=== PATIENT | female | born 1985 | race Caucasian/White ===

== ENCOUNTER → 2018-04-26 08:45 | Outpatient (CLI) | payer BC, SELFPAY ==
--- NOTE | 2018-04-26 09:11 | MRI_ITS ---
STUDY: MRI LUMBAR SPINE WITHOUT CONTRAST REASON FOR EXAM: Female, 33 years old. Back pain radiating to left hip TECHNIQUE: Standardized fat and water weighted pulse sequences were obtained in the sagittal and axial planes. COMPARISON: None FINDINGS: T12-L1: Normal endplates. Normal disc height, hydration and morphology. Normal bilateral facet joints. Normal central canal and bilateral lateral recesses. Normal bilateral intervertebral neural foramina. Normal lumbar lordosis. There is no substantial scoliosis. Normal conus medullaris that terminates at T12-L1 L1-2: Normal endplates. Normal disc height, hydration and morphology. Normal bilateral facet joints. Normal central canal and bilateral lateral recesses. Normal bilateral intervertebral neural foramina. L2-3: Normal endplates. Normal disc height, hydration and morphology. Normal bilateral facet joints. Normal central canal and bilateral lateral recesses. Normal bilateral intervertebral neural foramina. L3-4: Normal endplates. Normal disc height, hydration and morphology. Normal bilateral facet joints. Normal central canal and bilateral lateral recesses. Normal bilateral intervertebral neural foramina. L4-5: Normal endplates. Normal disc height, hydration and minimal annular bulge. Mild facet arthropathy.. Normal central canal and bilateral lateral recesses. Mild bilateral neural foraminal encroachment. L5-S1: Normal endplates. Normal disc height, hydration and minor annular bulge with small broad-based central disc protrusion.. Normal bilateral facet joints. Normal central canal and bilateral lateral recesses. Normal bilateral intervertebral neural foramina. Normal visualized sacral ala. Normal visualized paraspinous soft tissue structures. MRI/Spine Lumbar (Routine) IMPRESSION: Minimal annular bulge at L4-5 and facet arthropathy creating mild bilateral neural foraminal encroachment Minor annular bulge L5-S1 with small broad-based central disc protrusion but no significant spinal stenosis Electronically Signed: Trace Booker MD at 21:20 EDT , Service support ,
== END ==
PROVIDERS: Family Provider Student in an Organized Health Care Education/Training Program; PCP Student in an Organized Health Care Education/Training Program
DX: M54.16 Radiculopathy, lumbar region (principal)
CPT/HCPCS: 72148

== ENCOUNTER → 2018-06-04 07:51 | Outpatient (CLI) | payer BC, SELFPAY ==
--- NOTE | 2018-06-04 07:55 | NM_ITS ---
CLINICAL: 33-year-old female with reported history of low back discomfort. WHOLE BODY 99m Tc MDP RADIONUCLIDE BONE SCINTIGRAPHY COMPARISON: MRI of the lumbar spine report 04/26/2018 FINDINGS: Following the intravenous administration of 26.2 mCi of 99m Tc MDP, whole body bone images reveal: 1. Increased radiopharmaceutical concentration appears defined in the bilateral sacroiliac joints, patellofemoral and medial tibial compartments of the bilateral knees, dorsal medial compartments of the right-left ankles, the inferior anterior acetabulum of the right hip, acromioclavicular compartments of both shoulders. 2. The remaining skeletal structures are scintigraphically unremarkable with normal-appearing renal images and urinary bladder activity identified. NM/Bone Scan Whole Body IMPRESSION: 1. The increase in radiopharmaceutical concentration identified in the right-left sacroiliac joints, knee and ankle articulations bilaterally, the right hip and bilateral shoulders may represent early onset degenerative arthritis or potentially synovial inflammation. 2. No other definitive scintigraphic abnormalities are defined. There is no typical evidence of trauma-fracture on the current examination. Electronically Signed: Fracisco Horton DO at 23:42 EST Tel , Service support ,
--- OUTSIDE RECORDS SUMMARY | 2018-07-21 02:41 | XMS RPT_ITS ---
:1985 Author Organization [facility] Care Team Providers Name Role Phone SUZAN JACKSON MD Admitting Unavailable SUZAN JACKSON MD Attending Unavailable SUZAN JAKCSON MD Primary Care Unavailable ALONA FORD Consulting Unavailable PROVIDER, UNKNOWN Consulting Unavailable PROVIDER, UNKNOWN Consulting Unavailable PROVIDER, UNKNOWN Consulting Unavailable EVAN GE Admitting Unavailable EVAN GE Attending Unavailable EVAN GE Primary Care Unavailable EVAN GE Consulting Unavailable PROVIDER, UNKNOWN Consulting Unavailable PROVIDER, UNKNOWN Consulting Unavailable Julius Womack Attending Unavailable Julius Womack Referring Unavailable Suzan Jackson Primary Care Unavailable ELMER GE Attending Unavailable ELMER GE Referring Unavailable Suzan Jackson Primary Care Unavailable PROBLEMS PROBLEMS DATE TYPE CONDITION / CODE ATTENDING STATUS SOURCE 06/06/2018 Admitting Other intervertebral EVAN GE Active [facility] Diagnosis disc displacement, [facility] M5126(ICD-10) Repository 06/06/2018 Principle Other intervertebral GE, SCOT D Active [place] Diagnosis disc displacement, [facility] M5126(ICD-10) Repository 04/30/2018 Unknown M54.16 - Julius Womack Active Malcolm Radiculopathy, [facility] lumbar region [facility] Hospital M54.16(ICD-10) Repository 09/25/2017 Principle Morbid (severe) RDOO, Active [facility] Swartz Diagnosis obesity due to SUZAN GLOVER [facility] E6601(ICD-10) Repository PROCEDURES PROCEDURES No Procedure Records FoundRESULTS RESULTS CBC Collected: 06/06/2018 Status: F Source: [facility] SWARTZ 12:00 PM [facility] REPOSITORY TYPE CODE TESTS RESULT OUT OF RANGE REFERENCE UNITS LAB CBC(LOINC) CBC Result Comment: CBC-COMPLETE BLOOD COUNT LAB WBC(LOINC) 4.5 - 10.8 x 10EE3/UL WBC 9.5 LAB RBC(LOINC) 4.10 - x 10EE6/UL 5.30 RBC 4.77 LAB HEMOGLOBIN(LOINC 12.0 - g/dl ) 16.0 HEMOGLOBIN 13.9 LAB HEMATOCRIT(LOINC 34.0 - % ) 46.0 HEMATOCRIT 41.2 LAB MCV(LOINC) 80 - 99 fl MCV 87 LAB MCH(LOINC) 27 - 33 pg MCH 29 LAB MCHC(LOINC) 32 - 36 X10 3 MCHC 34 LAB RDW/CV(LOINC) 12.0 - % 15.6 RDW/CV 13.8 LAB PLATELET(LOINC) 150 - 450 x10EE3/UL PLATELET 265 LAB MPV(LOINC) 6.6 - 10.5 fl MPV High 11.9 Result Comment: AUTOMATED DIFFERENTIAL LAB NEUT %(LOINC) 46.0 - 76.0 % NEUT % 67.9 LAB LYMPH %(LOINC) 20.0 - 45.0 % LYMPH % 27.4 LAB MONOS %(LOINC) 0.0 - 10.0 % MONOS % 3.5 LAB EO %(LOINC) 0.0 - 7.0 % EO % 0.6 LAB BASO %(LOINC) 0.0 - 2.0 % BASO % 0.6 LAB Lymph #(LOINC) 0.80 - 2.80 x10EE3/U L Lymph # 2.60 LAB Neut #(LOINC) 1.50 - 7.10 x10EE3/U L Neut # 6.40 LAB Glascock #(LOINC) 0.20 - 1.00 x10EE3/U L Glascock # 0.30 LAB EO #(LOINC) 0.00 - 0.50 x10EE3/U L EO # 0.10 LAB Baso #(LOINC) 0.00 - 0.10 x10EE3/U L Baso # 0.10 LAB MANUAL DIFF(LOINC) MANUAL DIFF N/A LAB MORPHOLOGY(LOINC ) MORPHOLOGY N/A Result Comment: {CD] Performed By: #### [id number] #### [address] [address] SEDRATE Collected: 06/06/2018 Status: F [facility] REPOSITORY TYPE CODE TESTS RESULT OUT OF REFERENCE UNITS RANGE LAB SEDRATE(RADHA 0 - 30 mm/hr NC) High SEDRATE 32 Performed By: #### [id number] #### [address] [address] VITAMIN D, 25 Collected: 06/06/2018 Status: F Source: [facility] [place] [facility] 12:00 [facility] REPOSITORY TYPE CODE TESTS RESULT OUT OF RANGE REFERENCE UNITS LAB VitD(LOINC) 30.00 - 100 ng/mL Low VitD 26.21 Result Comment: 25-OHD3 indicates both endogenous production and supplementation. 25-OHD2 is an indicator of exogenous sources, such as diet or supplementation. Therapy is based on measurement of Total 25-OHD, with levels <20 ng/mL indicative of Vitamin D deficiency, while levels between 20 ng/mL and 30 ng/mL suggest insufficiency. Optimal levels are >=30ng/mL. Vitamin D, 25-OH D3 Not Established Vitamin D, 25-OH D2 Not Established Performed By: #### [id number] #### [address] [address] HIGH SENSITIVITY CRP Collected: 06/06/2018 Status: F Source: QUINTON SWARTZ [CCL] 12:00 [facility] REPOSITORY TYPE CODE TESTS RESULT OUT OF REFERENCE UNITS RANGE LAB HIGH SENSITIVITY CRP [CCL](LOINC) HIGH SENSITIVITY CRP [CCL] Result Comment: _HIGH SENSITIVITY CRP [CCL]_ HIGH SENSITIVITY CRP [CCL] Reported: 06/08/2018 08:03 Status=F TEST RESULT FLAG RANGE UNITS UltraSens C-ReacProt 13.7 H <3.1 mg/L 06/08/18.0806.rfl.COMPLETE.ATLR (NOTE) hsCRP < 1.0 mg/L, relative risk is low hsCRP 1.0-3.0 mg/L, relative risk is average hsCRP > 3.0 mg/L, relative risk is high Reference: Chyna TA, Pavel GA, James RW, et al. Markers of Inflammation and Cardiovascular Disease. Application to Clinical and Public Health Practice. A Statement for Healthcare Professionals From the Centers for Disease Control and Prevention and the [employer]. Circulation 2003;107:499-511. [facility] [address] [place] [address] Cata Schafer M.D. [id number] Performed By: #### [id number] #### [facility],[address] [facility] [address] ULTRA-SENSITIVE CRP Collected: 06/06/2018 Status: F Source: [facility] 12:00 PM CLINIC REFERENCE REPOSITORY TYPE CODE TESTS RESULT OUT OF REFERENCE UNITS RANGE LAB CRPUS(LOIN <3.1 mg/L C) High UltraSens 13.7 C-ReacProt Performed By: #### HSCRP #### [facility] [employer] Routine Lab [address] [place], [place] [id number] BONE SCAN WHOLE Observed: 06/04/2018 Status: F Source: [place] BODY 7:55 AM [facility] REPOSITORY [facility] Imaging Services [address] [place] [address] Bone Scan Whole Body MR#: [id number] Acct: [id number] Name: JULISSA GE Mario Rep #: [id number] : 1985 F 33 From: Fracisco Horton DO PCP: Suzan Jackson MD Status: REG CLI Study: Bone Scan Whole Body Date of Exam: 06/04/18 Exam# [id number] Ordering Dr: Evan Ge DO CLINICAL: 33-year-old female with reported history of low back discomfort. WHOLE BODY 99m Tc MDP RADIONUCLIDE BONE SCINTIGRAPHY COMPARISON: MRI of the lumbar spine report 04/26/2018 FINDINGS: Following the intravenous administration of 26.2 mCi of 99m Tc MDP, whole body bone images reveal: 1. Increased radiopharmaceutical concentration appears defined in the bilateral sacroiliac joints, patellofemoral and medial tibial compartments of the bilateral knees, dorsal medial compartments of the right-left ankles, the inferior anterior acetabulum of the right hip, acromioclavicular compartments of both shoulders. 2. The remaining skeletal structures are scintigraphically unremarkable with normal-appearing renal images and urinary bladder activity identified. NM/Bone Scan Whole Body IMPRESSION: 1. The increase in radiopharmaceutical concentration identified in the right-left sacroiliac joints, knee and ankle articulations bilaterally, the right hip and bilateral shoulders may represent early onset degenerative arthritis or potentially synovial inflammation. 2. No other definitive scintigraphic abnormalities are defined. There is no typical evidence of trauma-fracture on the current examination. Electronically Signed: Fracisco Horton DO at 23:42 EST Tel , Service support , CC: Suzan Jackson MD; ELMER GE Remotely Piloted Vehicle Controller: Signed SPINE LUMBAR Observed: 04/26/2018 Status: F Source: [place] (ROUTINE) 9:11 AM [facility] REPOSITORY [facility] Imaging Services [address] [place] [address] Spine Lumbar (Routine) MR#: [id number] Acct: [id number] Name: JULISSA GE Mario Rep #: [id number] : 1985 F 33 From: Trace Booker MD PCP: Suzan Jackson MD Status: [facility] CLI Study: Spine Lumbar (Routine) Date of Exam: 04/26/18 Exam# [id number] Ordering Dr: Julius Womack STUDY: MRI LUMBAR SPINE WITHOUT CONTRAST REASON FOR EXAM: Female, 33 years old. Back pain radiating to left hip TECHNIQUE: Standardized fat and water weighted pulse sequences were obtained in the sagittal and axial planes. COMPARISON: None FINDINGS: T12-L1: Normal endplates. Normal disc height, hydration and morphology. Normal bilateral facet joints. Normal central canal and bilateral lateral recesses. Normal bilateral intervertebral neural foramina. Normal lumbar lordosis. There is no substantial scoliosis. Normal conus medullaris that terminates at T12-L1 L1-2: Normal endplates. Normal disc height, hydration and morphology. Normal bilateral facet joints. Normal central canal and bilateral lateral recesses. Normal bilateral intervertebral neural foramina. L2-3: Normal endplates. Normal disc height, hydration and morphology. Normal bilateral facet joints. Normal central canal and bilateral lateral recesses. Normal bilateral intervertebral neural foramina. L3-4: Normal endplates. Normal disc height, hydration and morphology. Normal bilateral facet joints. Normal central canal and bilateral lateral recesses. Normal bilateral intervertebral neural foramina. L4-5: Normal endplates. Normal disc height, hydration and minimal annular bulge. Mild facet arthropathy.. Normal central canal and bilateral lateral recesses. Mild bilateral neural foraminal encroachment. L5-S1: Normal endplates. Normal disc height, hydration and minor annular bulge with small broad-based central disc protrusion.. Normal bilateral facet joints. Normal central canal and bilateral lateral recesses. Normal bilateral intervertebral neural foramina. Normal visualized sacral ala. Normal visualized paraspinous soft tissue structures. MRI/Spine Lumbar (Routine) IMPRESSION: Minimal annular bulge at L4-5 and facet arthropathy creating mild bilateral neural foraminal encroachment Minor annular bulge L5-S1 with small broad-based central disc protrusion but no significant spinal stenosis Electronically Signed: Trace Booker MD at 21:20 EDT , Service support , CC: Julius Womack; Suzan Jackson MD Remotely Piloted Vehicle Controller: Signed CBC Collected: 09/25/2017 Status: F Source: [place] SWARTZ 10:30 AM [facility] REPOSITORY TYPE CODE TESTS RESULT OUT OF RANGE REFERENCE UNITS LAB CBC(LOINC) CBC Result Comment: CBC-COMPLETE BLOOD COUNT LAB WBC(LOINC) 4.5 - 10.8 x 10EE3/UL WBC 5.7 LAB RBC(LOINC) 4.10 - x 10EE6/UL 5.30 RBC 5.01 LAB HEMOGLOBIN(LOINC) 12.0 - g/dl 16.0 HEMOGLOBIN 14.9 LAB HEMATOCRIT(LOINC) 34.0 - % 46.0 HEMATOCRIT 42.8 LAB MCV(LOINC) 80 - 99 fl MCV 86 LAB MCH(LOINC) 27 - 33 pg MCH 30 LAB MCHC(LOINC) 32 - 36 X10 3 MCHC 35 LAB RDW/CV(LOINC) 12.0 - % 15.6 RDW/CV 13.7 LAB PLATELET(LOINC) 150 - 450 x10EE3/UL PLATELET 204 Result Comment: Large platelets noted on slide review. LAB MPV(LOINC) 6.6 - 10.5 fl High MPV 11.7 Result Comment: AUTOMATED DIFFERENTIAL LAB NEUT %(LOINC) 46.0 - 76.0 % NEUT % 57.9 LAB LYMPH %(LOINC) 20.0 - 45.0 % LYMPH % 33.8 LAB MONOS %(LOINC) 0.0 - 10.0 % MONOS % 6.9 LAB EO %(LOINC) 0.0 - 7.0 % EO % 0.9 LAB BASO %(LOINC) 0.0 - 2.0 % BASO % 0.5 LAB Lymph #(LOINC) 0.80 - 2.80 x10EE3/U L Lymph # 1.90 LAB Neut #(LOINC) 1.50 - 7.10 x10EE3/U L Neut # 3.30 LAB Glascock #(LOINC) 0.20 - 1.00 x10EE3/U L Glascock # 0.40 LAB EO #(LOINC) 0.00 - 0.50 x10EE3/U L EO # 0.10 LAB Baso #(LOINC) 0.00 - 0.10 x10EE3/U L Baso # 0.00 LAB MANUAL DIFF(LOINC) MANUAL DIFF N/A LAB MORPHOLOGY(LOINC ) MORPHOLOGY N/A Result Comment: {CD] Performed By: #### [id number] #### [place] [address] LIPID PROFILE Collected: 09/25/2017 Status: F Source: [facility] 10:30 AM [facility] REPOSITORY TYPE CODE TESTS RESULT OUT OF REFERENCE UNITS RANGE LAB LIPID PROFILE(LOIN C) LIPID PROFILE Result Comment: LIPID PROFILE LAB TRIGLYCERIDE(LOINC) 0 - 150 mg/dl TRIGLYCERIDE 137 LAB CHOLESTEROL(LOINC) 0 - 200 mg/dl CHOLESTEROL 162 LAB HDL(LOINC) 40 - 60 mg/dl HDL High 62 LAB CHOL/HDL(LOINC) 0.0 - 5.0 CHOL/HDL 2.6 LAB LDL(LOINC) 0 - 129 mg/dl LDL 73 Performed By: #### [id number] #### [place] [address] CMP WITH EGFR Collected: 09/25/2017 Status: F Source: [facility] 10:30 [facility] REPOSITORY TYPE CODE TESTS RESULT OUT OF RANGE REFERENCE UNITS LAB CMP with eGFR(LOINC) CMP with eGFR Result Comment: COMPREHENSIVE METABOLIC PANEL LAB SODIUM(LOINC) 136 - 145 mmol/l SODIUM 137 LAB POTASSIUM(LOINC) 3.5 - 5.1 mmol/L POTASSIUM 4.2 LAB CHLORIDE(LOINC) 98 - 107 mmol/L CHLORIDE 106 LAB CO2(LOINC) 21.0 - mmol/L 31.0 CO2 23.2 LAB GLUCOSE(LOINC) 74 - 106 mg/dl GLUCOSE 89 LAB BUN(LOINC) 6 - 20 mg/dl BUN 11 LAB CREATININE(LOINC) 0.6 - 1.2 mg/dl CREATININE 0.8 LAB AST/SGOT(LOINC) 13 - 39 U/L AST/SGOT 16 LAB ALK PHOS(LOINC) 38 - 126 U/L ALK PHOS 91 LAB CALCIUM(LOINC) 8.6 - mg/dl 10.2 CALCIUM 9.0 LAB TOTAL PROTEIN(LOINC) 6.4 - 8.3 g/dl TOTAL PROTEIN 7.0 LAB ALBUMIN(LOINC) 3.4 - 4.8 g/dL ALBUMIN 3.9 LAB GLOBULIN(LOINC) 1.5 - 3.8 G/DL GLOBULIN 3.1 LAB A/G RATIO(LOINC) 0.9 - 1.6 A/G RATIO 1.3 LAB TOTAL BILI(LOINC) 0.0 - 1.5 mg/dl TOTAL BILI 0.4 LAB B/C RATIO(LOINC) 0 - 30 ratio B/C RATIO 14 LAB ALT/SGPT(LOINC) 8 - 35 U/L ALT/SGPT 15 LAB ANION GAP(LOINC) 10 - 20 mmol/L ANION GAP 12 LAB AGE(LOINC) years AGE 32 LAB eGFR(LOINC) 60 - 999 ML/MINUTE eGFR >60 LAB eGFR(AA)(LOINC) 60 - 999 ML/MINUTE eGFR(AA) >60 Result Comment: ACCORDING TO THE NATIONAL KIDNEY DISEASE EDUCATION PROGRAM(NKDE), A NORMAL eGFR IS A VALUE GREATER THAN OR EQUAL TO 60 ML/MIN/1.73 SQ METERS. CHRONIC KIDNEY DISEASE: <60mL/MIN/1.73 SQ METERS KIDNEY FAILURE: <15mL/MIN/1.73 SQ METERS THIS TEST SHOULD ONLY BE USED FOR PATIENTS 18 YEARS OF AGE AND OLDER. Performed By: #### [id number] #### [facility],[address] [place] [address] ALLERGIES ALLERGIES DATE TYPE / CODE NAME / CODE REACTION SEVERITY SOURCE 07/23/2014 Drug No Known Unknown [place] Allergy/[id number](S Allergies/F0019 [facility] NOMED CT) 8[address](RXNORM) Hospital Repository Miscellaneous No Known Drug Moderate [facility] Allergy/[id number](S Allergies (Severity [facility] NOMED CT) Modifier) Hospital (Qualifier Repository Value) ENCOUNTERS ENCOUNTERS ADMIT/DISCHARGE ACCOUNT ADMITTING ENCOUNTER LOCATION SOURCE NUMBER CLASS 06/06/2018/ [id number] EVAN GE Ambulatory [facility] 8 D [facility] Repository 06/04/2018 [id number] Ambulatory [facility] 6 [facility] ing:[place] Repository 04/26/2018 [id number] Ambulatory [facility] [place] 3 [facility] ing:[place] Repository 09/25/2017/ [id number] [place]OD[place], Ambulatory Quinton Swartz 8 SUZAN GLOVER [facility] [place] [facility] Repository PAYERS PAYERS ENCOUNTER GUARANTOR PAYER SUBSCRIBER SOURCE 06/06/2018 JULISSA Martin Primary JULISSA Swartz MILLERDOB: Insurance:[employer]HEM BLUE MILLERDOB: [facility] [id number] CROSS COMMERCIAL [id number] Hospital [address] [address] [facility] BOX Repository [facility] Number: [place] [id number] [place] [address] [phone]: Date:Plan Name: () 06/04/2018 JULISSA Martin Primary JULISSA Fowler [address] Insurance:ANTHEMPolicy MILLERDOB: [facility] Number: [id number] [id number] Repository [place], [place] [address]Yoy: Date:4167-30-62TS [address], [place] () [address]EU: 06/04/2018 Secondary NOT GIVENUNK [place] Insurance:SELF PAY [facility] Number: Effective Repository Date:2018-05-22 04/26/2018 JULISSA Martin Primary JULISSA Martin Malcolm [facility] Insurance:ANTHEMPolicy MILLERDOB: [place] [id number] [place] Number: [id number] [id number] Rep[facility] [place], [place] [address]Ouv: Date:3774-01-36HA [id number] [place] [address]) [address]JZ: 04/26/2018 Secondary NOT GIVENUNK [place] Insurance:SELF PAY [facility] Number: Effective Repository Date:2018-04-23 09/25/2017 JULISSA Martin Primary JULISSA Swartz MILLERDOB: Insurance:ANTHEMPolicy MILLERDOB: [facility] [id number] Number: [id number] Hospital [address] [address] [place] [id number] [facility] Repository [facility] Date:Plan Name: [id number] , [place] , [place] [address] [phone]: ()
== END ==
LOC: NM 07:53
PROVIDERS: Family Provider Student in an Organized Health Care Education/Training Program; PCP Student in an Organized Health Care Education/Training Program; Referring Provider Orthopaedic Surgery; Visit Provider Orthopaedic Surgery
DX: M51.26 Other intervertebral disc displacement, lumbar region (principal)
CPT/HCPCS: 78306

== ENCOUNTER 2019-06-04 22:16 | Inpatient (IN) | payer BC, SELFPAY ==
[2019-06-04 22:17] VITALS: BP 167/111; PULSE 84; RESP 15; TEMP 36.7; O2SAT 100; BMI 40.1
--- NOTE | 2019-06-04 22:25 | ED.RN ---
NO OLD EKGS IN MUSE
--- NOTE | 2019-06-04 23:56 | EKG12_ITS ---
Test Reason : CP Blood Pressure : / mmHG Vent. Rate : 067 BPM Atrial Rate : 067 BPM P-R Int : 166 ms QRS Dur : 068 ms QT Int : 364 ms P-R-T Axes : 049 049 060 degrees QTc Int : 384 ms Normal sinus rhythm Normal ECG Confirmed by DIA GLOVER, VANDANA ([id number]), general expeditor JAYASHREE BAPTISTE ([id number]) on 06/08/2019 11:45:20 AM Referred By: LIS Confirmed By:VANDANA ALVARES MD
--- NOTE | 2019-06-04 23:57 | ED.VIS.GEN ---
History of Present Illness Chief Complaint: Chest Pain Narrative: Patient is a 34-year-old female who presents with chest pain. This began 2-1/2 hours prior to my evaluation. This was with light activity while feeding some pets. She describes it as a burning substernal chest pain with radiation towards her shoulders. She also reports a little bit of nausea, shortness of breath, dizziness. No history of prior similar symptoms. She also complains of tingling in both arms. No recent illness. No fevers or cough. No vomiting. She is treated for depression/anxiety. She has not a smoker. She denies history of diabetes, hypertension, hyperlipidemia Past Medical History - Allergies and Home Meds Allergies/Adverse Reactions: Allergies Iodinated Contrast Media [CONTRASTS] Adverse Reaction (Verified 06/05/19 02:11) Itching Primary Care Physician: Thalia Jackson MD [Primary Care Provider] - Past Medical History: - - Depression/anxiety Smoking Status: Never smoker Review of Systems All systems negative except as indicated General: Denies: Fever Eyes: Denies: Visual changes - bilaterally ENT: Denies: Bilateral ear pain Cardiovascular: Reports: Chest pain Respiratory: Reports: Dyspnea Gastrointestinal: Reports: Nausea. Denies: Abdominal pain, Vomiting Skin: Denies: Rash Neurological: Reports: - - Dizziness. Denies: Headache Hematologic: Denies: Easy bruising, Easy bleeding Allergy: Denies: Uticaria Physical Exam Vital Signs/Narrative: Vital Signs Temp Pulse Resp BP Pulse Ox 06/04/19 22:17 98.1 F 84 15 167/111 H 100 Inital Vital Signs reviewed: Yes General: Well nourished, Well developed Head: Normocephalic Eyes: EOMI ENT: Moist mucous membranes Neck: Supple Cardiovascular: Regular rate, Regular rhythm Respiratory: No distress, CTA bilaterally Abdomen: Soft, Nontender Extremities: Nontender, No edema, - - Symmetric palpable radial pulses Skin: Normal color Neurological: Alert Psychological: Normal affect Diagnostic/Tx/Re-eval Impressions Chest X-Ray 06/05/19 00:00 IMPRESSION: Normal. at 0020 Reported and signed by: Julius Bolden MD Electronically Signed: Julius Bolden MD at 0:19 EST Tel , Service support , Chest CTA 06/05/19 00:56 IMPRESSION: No pulmonary embolism, aortic aneurysm, or aortic dissection. Individualized dose optimization techniques were used for this CT. at 0205 Reported and signed by: Julius Bolden MD Electronically Signed: Julius Bolden MD at 2:04 EST Tel , Service support , 06/05/19 00:00 Chest PA and Lateral [RAD] Stat 06/05/19 00:56 CTA Chest W/WO Contrast [CT] Stat Laboratory Results 06/05/19 06/05/19 06/05/19 00:05 00:05 00:05 WBC 11.4 H RBC 5.12 Hgb 15.1 H Hct 45.0 MCV 87.9 MCH 29.5 MCHC 33.6 RDW Std Deviation 41.4 RDW Coeff of Precious 12.8 Plt Count 248 MPV 11.6 Immature Gran % (Auto) 0.400 Neut % (Auto) 75.0 H Lymph % (Auto) 18.1 L Taliaferro % (Auto) 5.5 Eos % (Auto) 0.4 Baso % (Auto) 0.6 Absolute Neuts (auto) 8.5 H Absolute Lymphs (auto) 2.06 Nucleated RBC % 0 APTT 29.2 Sodium 141 Potassium 4.0 Chloride 108 H Carbon Dioxide 26.0 Anion Gap 7 BUN 14 Creatinine 0.90 Estim Creat Clear Calc 66.46 Est GFR (MDRD) Af Amer 92 Est GFR (MDRD) Non-Af 76 BUN/Creatinine Ratio 15.6 Glucose 101 Calcium 9.0 Troponin I 0.390 H - Medical Decision Making EKG shows normal sinus rhythm at a rate of 67 with no acute ischemic changes or dysrhythmia. Laboratory studies returned as above notable for troponin of 0.39. Patient's initial chest pain was rated a 6 out of 10. On reevaluation she rates it as 4 out of 10. Patient was given aspirin. Patient was discussed with Dr. Kowalski. After discussion patient was started on a heparin infusion and I also obtained a CTA of the chest to rule out alternative pathology such as pulmonary embolism. CTA of the chest is normal. Patient was given sublingual nitroglycerin with further minor improvement in pain. Given that she did have some relief with sublingual nitroglycerin but without resolution she was started on a nitroglycerin infusion. Repeat EKG has also been ordered as well as repeat troponin which is pending. Patient was also given morphine and Zofran. Patient will be discussed with the hospitalist and admitted for further work-up and treatment. ED Disposition - Plan for ED Patient: Disposition: [facility] Diagnosis: Chest pain, Elevated troponin Referrals: Thalia Jackson MD [Primary Care Provider] -
[2019-06-05] VITALS (45 sets, daily range): BP systolic 100–154; BP diastolic 52–109; PULSE 52–106; RESP 15–26; TEMP 36.6–36.8; O2SAT 92–99; BMI 40.1; BMI 39.0; BMI 38.9
--- NOTE | 2019-06-05 | RAD_ITS ---
HISTORY: STERNAL CHEST PAIN WITH SOB EXAM: XR Chest 2 Views: COMPARISON: None FINDINGS: # of images incl. paperwork: 3 Lungs are clear. Heart is not enlarged. No acute osseous pathology perceived. Pulmonary vascularity is distinct. No effusions. RAD/Chest PA and Lateral IMPRESSION: Normal. at 0020 Reported and signed by: Julius Bolden MD Electronically Signed: Julius Bolden MD at 0:19 EST Tel , Service support ,
[2019-06-05 00:15] LABS: Absolute Lymphocyte Count 2.06 X10^3/uL (0.83-4.51); Absolute Neutrophil Count 8.5 X10^3/uL (2.0-7.7); Basophil# 0.07 X10^3/uL; Basophil% 0.6 % (0-1); Eosinophil# 0.05 X10^3/uL; Eosinophils% 0.4 % (0-5); Hemoglobin 15.1 g/dL (12.0-15.0); Lymphocyte # 2.06 X10^3/ul (4.0); Lymphocyte % 18.1 % (19-41); Mean Corp Hgb Conc 33.6 g/dL (32-36); Mean Corpuscular Hgb 29.5 pg (27.0-32.0); Mean Corpuscular Volume 87.9 fL (81-99); Mean Platelet Vol. 11.6 fl (6.2-12.0); Monocyte# 0.62 X10^3/uL; Monocyte% 5.5 % (0-10); NRBC Flagged by Analyzer 0 % (0-5); Neutrophil # 8.51 X10^3/uL (2.7-7.7); Platelet Count 248 K/mm3 (150-450); RBC Distribution Width CV 12.8 % (11.6-14.6); RBC Distribution Width SD 41.4 fl (35.1-43.9); Red Blood Count 5.12 M/mm3 (4.2-5.4); White Blood Count 11.4 K/mm3 (4.4-11.0)
[2019-06-05 00:35] LABS: Anion Gap 7 (5-15); BUN 14 mg/dL (7-18); BUN/Creat Ratio 15.6 RATIO (10-20); Chloride 108 mmol/L (98-107); EST Glomerular Filtration Rate 76 mL/min (>60); Est Glom Filt Rate - Afr Amer 92 mL/min (>60); Estimated Creatinine Clearance 66.46 ml/min; Glucose 101 mg/dL (74-106); Sodium Level 141 mmol/L (136-145)
[2019-06-05] MEDS: Aspirin 81 MG TAB.CHEW 324 MG PO (00:56)
--- NOTE | 2019-06-05 00:56 | CT_ITS ---
HISTORY: SOB AND CHEST PAIN SINCE 930 PM LAST NIGHT,ELEVATED BP AND WBC TECHNIQUE: Helically acquired images were obtained of the chest following the intravenous administration of 19 mL of Isovue-370 Iodinated contrast. as per pulmonary angiogram protocol with 2D MIP reconstructions. A radiation dose optimization technique was used for this scan. COMPARISON: Chest x-ray from one hour earlier FINDINGS: # of images incl. paperwork: 1149 Soft tissue in the anterior mediastinum is likely normal residual thymus Lungs are clear but for trace basilar atelectasis. No effusions. Within the thoracic spinebony alignment is normal. Vertebral body height is normal. Facets are well aligned. No rib lesions are perceived. Heart is not enlarged. Thoracic aorta is normal. No aneurysms, stenoses, dissections, nor occlusions. No axillary or mediastinal adenopathy. No pulmonary emboli. Visualized portions of the upper abdomen are without identified acute pathology. CT/CTA Chest W/WO Contrast IMPRESSION: No pulmonary embolism, aortic aneurysm, or aortic dissection. Individualized dose optimization techniques were used for this CT. at 0205 Reported and signed by: Julius Bolden MD Electronically Signed: Julius Bolden MD at 2:04 EST Tel , Service support ,
[2019-06-05 01:07] LABS: Partial Thromboplast Time 29.2 Seconds (24.1-36.2)
[2019-06-05] MEDS: MethylPREDNISolone 125 MG/2 ML Vial IV (01:35)
[2019-06-05] MEDS: DiphenhydrAMINE 50 MG/ML Syringe 25 MG IV (01:36)
[2019-06-05] MEDS: Nitroglycerin SL (ED/IMG/CATH) 0.4 MG TABLET SUBLINGUAL ×2 (01:39→01:53)
[2019-06-05] MEDS: Heparin Injection (Vial) 5,000 UNIT/ML VIAL 7500 UNIT IV (01:40)
[2019-06-05] MEDS: HEPARIN/D5w 25,000 UNITS 25,000 UNITS/250 ML IV.SOLN. 14 UNITS IV (01:52)
--- NOTE | 2019-06-05 02:26 | EKG12_ITS ---
Test Reason : REPEAT Blood Pressure : / mmHG Vent. Rate : 063 BPM Atrial Rate : 063 BPM P-R Int : 162 ms QRS Dur : 076 ms QT Int : 370 ms P-R-T Axes : 042 036 035 degrees QTc Int : 378 ms Normal sinus rhythm Normal ECG Confirmed by DIA GLOVER, VANDANA ([id number]), video news editor JAYASHREE BAPTISTE ([id number]) on 06/08/2019 11:45:33 AM Referred By: LIS Confirmed By:VANDANA ALVARES MD
--- NOTE | 2019-06-05 02:42 | PCM.HP.STD ---
Problem List (1) NSTEMI (non-ST elevated myocardial infarction) Status: Acute History of Present Illness Date of Admission: 06/05/19 Chief Complaint: CHEST PAIN The patient is a 34 year old F with a significant history of morbid obesity; arthritis; and anxiety disorder who presented to emergency department with a progressive worsening substernal chest pain that radiated to her bilateral arms. 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 Then she developed mild substernal chest pain. She then carried a bag of dog food after which her pain moved from the center of her chest to across her entire chest and radiated to her bilateral arms. She had a tingling sensation in her bilateral arms. Associated with symptoms is nausea and diaphoresis. Also when she stood up she felt short of breath and had lightheadedness. She denied any ameliorating or aggravating factors to her pain. At the emergency department patient her troponin was elevated. The case was discussed with cardiology and patient was started on heparin drip and nitroglycerin drip. Past Medical History Medical History: Medical History (Last Updated 06/05/19 @ 03:33 by Valentin Pradhan MD) Arthritis M19.90 Allergies Iodinated Contrast Media [CONTRASTS] Adverse Reaction (Verified 06/05/19 02:11) Itching Home Medications: Ambulatory Orders Medication Instructions Recorded Citalopram [Celexa] 10 mg PO DAILY 07/23/14 Norgestimate-Ethinyl Estradiol 1 each PO DAILY 07/23/14 [Tri-Sprintec Tablet] Oxycodone HCl/Acetaminophen 1 - 2 tablet PO Q4H PRN PRN #12 07/23/14 [Percocet 5/325] tablet Escitalopram Oxalate [Lexapro] DAILY 06/05/19 Surgical History: no surgical history Lives: Alone Smoking Status: Current every day smoker Tobacco Use: Chew - *Family History Maternal History Items: Diabetes, Heart Disease - Her maternal grandfather in his 60s had dysrhythmia for which pacemaker was considered. However he did before the pacemaker was inserted. Paternal History Items: Diabetes Review of Systems Constitutional: Denies: Chills, Fever, Weight Change HEENT: Denies: Head Aches, Sinus Congestion, Sinus Drainage Cardiovascular: Reports: Chest Pain, Light Headedness. Denies: Palpitations Respiratory: Reports: Shortness of Breath. Denies: Cough, Shortness of breath at rest, Sputum production Gastrointestinal: Reports: Nausea. Denies: Abdominal Pain, Vomiting Genitourinary: Denies: Dysuria Musculoskeletal: Reports: Arm Pain. Denies: Joint Pain, Joint Tenderness Skin: Denies: Rash, Wounds Neurological: Reports: Tingling - Bilateral arms. Denies: Focal weakness, Numbness Psychiatric: Reports: Anxiety. Denies: Depression, Homicidal Ideations, Suicidal Ideations Hematologic/ Lymphatic: Denies: Easy Bruising, Easy Bleeding VTE Information - Inpt Only VTE Present on Admission: No VTE Mechan Device Prophylaxis: None VTE Pharm Prophylaxis ordered?: No Reason prophylaxis not ordered:: Treatment Not Indicated - Started on heparin drip for non-ST elevation IL. Patient Problems: Active and Suspected Problems (Last Updated 06/05/19 @ 03:33 by Valentin Pradhan MD) Chest pain (Acute) Elevated troponin (Acute) NSTEMI (non-ST elevated myocardial infarction) (Acute) - Physical Exam Vitals/I&O's: Vital Signs Temp Pulse Resp BP Pulse Ox 98.1 F 69 24 H 117/72 99 06/04/19 22:17 06/05/19 02:16 06/05/19 02:16 06/05/19 02:16 06/05/19 02:16 Oxygen Delivery Method Room Air Weight: 96.3 kg Body Mass Index (BMI) 40.1 Intake and Output for Last 24 Hours 06/03/19 06/04/19 06/05/19 23:59 23:59 23:59 Intake Total 7.47 / 7.47 Balance 7.47 / 7.47 General: Alert, Oriented x3, Cooperative HEENT: Atraumatic, PERRLA, EOMI, Normocephalic Neck: Supple, No JVD, Negative Carotid Bruits Lungs: Clear to auscultation, Normal air movement, No rhonchi, No wheeze, No rales Cardiovascular: Regular rate, No murmurs Abdomen: Bowel Sounds Present, Soft, Non Tender Extremities: No edema, Capillary Refill Less than 3 Seconds Skin: No rashes, No breakdown Musculoskeletal: No Tenderness to Palpation of Joints or Extremities Neurological: Cranial nerves II-XII grossly intact Psych/Mental Status: Normal Affect, Appropriate Laboratory Results 06/05/19 00:05: WBC 11.4 H, RBC 5.12, Hgb 15.1 H, Hct 45.0, MCV 87.9, MCH 29.5, MCHC 33.6, RDW Std Deviation 41.4, RDW Coeff of Precious 12.8, Plt Count 248, MPV 11.6, Immature Gran % (Auto) 0.400, Neut % (Auto) 75.0 H, Lymph % (Auto) 18.1 L, [place] % (Auto) 5.5, Eos % (Auto) 0.4, Baso % (Auto) 0.6, Absolute Neuts (auto) 8.5 H, Absolute Lymphs (auto) 2.06, Nucleated RBC % 0 06/05/19 00:05: Sodium 141, Potassium 4.0, Chloride 108 H, Carbon Dioxide 26.0, Anion Gap 7, BUN 14, Creatinine 0.90, Estim Creat Clear Calc 66.46, Est GFR (MDRD) Af Amer 92, Est GFR (MDRD) Non-Af 76, BUN/Creatinine Ratio 15.6, Glucose 101, Calcium 9.0, Troponin I 0.390 H 06/05/19 00:05: APTT 29.2 Current Medications Heparin Sodium (Porcine) (Heparin Na) 0 unit IV UD PRN; Protocol Heparin Sodium/Dextrose () 25,000 units in 250 mls @ 14 mls/hr IV .[id number] [facility]; Protocol Last Titration: 06/05/19 02:24 Dose: 1,400 units/hr, 14 mls/hr Documented by: Nitroglycerin/Dextrose () 250 mls @ 3 mls/hr CONT INF .[id number] [facility]; Protocol Nitroglycerin (Nitrostat) 0.4 mg SUBLINGUAL Q5M PRN PRN Reason: Chest pain Last Admin: 06/05/19 01:53 Dose: 0.4 mg Documented by: Assessment/Plan All Active Problems (Last Updated 06/05/19 @ 03:33 by Valentin Pradhan MD) Chest pain (Acute) Elevated troponin (Acute) NSTEMI (non-ST elevated myocardial infarction) (Acute) The patient is a 34 year old F with a significant history of morbid obesity; arthritis; tobacco abuse; and anxiety disorder who presented to emergency department with typical chest pain and elevated troponin consistent with non-ST elevation IL. Non-ST elevation IL Place on a monitored bed at PCU CXR independently reviewed confirms no acute cardiopulmonary process. EKG independently reviewed confirms sinus rhythm. Patient was pretreated and had a chest CTA with contrast which was unremarkable. Received aspirin 324 mg in emergency department ASA 81 mg p.o. daily Statin: We will give one-time dose of high intensity statin. Anti-P2Y12 Receptor antibody: Load with Plavix 30 mg; and then Plavix 75 mg daily Anticoagulation: Was started on heparin drip for the emergency department; continued Continue nitroglycerin drip started from the emergency department. We will check lipid panel. Serial cardiac enzymes Stat EKG as needed for chest pain Cardiology consult. Tobacco abuse Patient chews tobacco. Counseled. Anxiety disorder On Lexapro Arthritis Takes Tylenol and ibuprofen as needed Miscellaneous: On home Norgestimate-Ethinyl Estradiol DVT Prophylaxis: Not indicated since patient has been started on heparin drip for her non-ST elevation IL. Code Visit Inpatient E&M: 79286 Init Hosp L3
[2019-06-05] MEDS: Ondansetron 4 MG/2 ML Vial IV (03:09)
[2019-06-05] MEDS: Morphine 4 MG/ML Syringe IV (03:10)
[2019-06-05] MEDS: Nitroglycerin Infusion 250 ML 3 MG CONT INF (03:13)
--- NOTE | 2019-06-05 03:26 | EKG12_ITS ---
Test Reason : AM EKG Blood Pressure : / mmHG Vent. Rate : 064 BPM Atrial Rate : 064 BPM P-R Int : 162 ms QRS Dur : 072 ms QT Int : 402 ms P-R-T Axes : 053 045 066 degrees QTc Int : 414 ms Sinus rhythm with marked sinus arrhythmia Nonspecific T wave abnormality Abnormal ECG When compared with ECG of 05-JUN-2019 13:58, MANUAL COMPARISON REQUIRED, DATA IS UNCONFIRMED Confirmed by MART GLOVER, MYESHA ([id number]), tape editor LENNOX FLAHERTY ([id number]) on 06/10/2019 11:47:03 AM Referred By: DENNIS Confirmed By:MYESHA CEVALLOS MD
[2019-06-05] MEDS: Atorvastatin Calcium 80 MG Tablet PO ×2 (04:25→21:01)
[2019-06-05] MEDS: Clopidogrel Bisulfate 300 MG Tablet PO (04:25)
[2019-06-05] MEDS: Acetaminophen 325 MG Tablet 650 MG PO (06:09)
[2019-06-05 06:54] LABS: Cholesterol 176 mg/dL (200); High Density Lipoprotein 65 mg/dL; Triglycerides 93 mg/dL; Very Low Density Lipoprotein 19 mg/dL (5-40)
--- NOTE | 2019-06-05 08:05 | PN_ITS ---
Progress Note This is a 34 years old female patient presented to the emergency department because of chest pain, found to have elevated troponin consistent with non-ST relation NH. Patient seen and examined this morning. Chest pain improved but still having minimal chest pain. Denies shortness of breath, palpitation, diaphoresis, nausea or vomiting. No family history of premature CAD. On risk factor is chewing tobacco and obesity. No history of diabetes or hypertension. Lipid profile was normal. Her vital signs are stable. She is on aspirin, Pl avix and IV heparin drip. EKG revealed no acute changes. CTA chest showed no PE or dissection, no pneumonia. Cardiology consulted, awaiting recommendations. STROKE Vital Signs/Narrative: Vital Signs Pulse BP Pulse Ox 06/05/19 07:48 95 06/05/19 07:22 72 06/05/19 07:00 134/86 H 06/05/19 06:00 119/72 06/05/19 05:30 129/77 H 06/05/19 05:00 121/75 H 06/05/19 04:45 120/80 06/05/19 04:30 124/73 H 06/05/19 04:15 128/77 H
--- NOTE | 2019-06-05 09:23 | CASEMGMT ---
According to the [place] website, the following are in-network tertiary facilities: [facility], [facility], [facility], [facility], [facility], [facility], [facility], [facility], [facility], and . Jeremi ROBBINS CM
[2019-06-05] MEDS: DiphenhydrAMINE 25 MG Capsule 50 MG PO (09:27)
[2019-06-05] MEDS: predniSONE 20 MG Tablet 60 MG PO (09:28)
[2019-06-05] MEDS: Famotidine 20 MG Tablet PO (09:28)
--- NOTE | 2019-06-05 09:59 | PCM.CONS.C ---
Problem List (1) NSTEMI (non-ST elevated myocardial infarction) Status: Acute (2) Chest pain Status: Acute (3) Tobacco abuse Status: Acute Reason for Consult Date of Consultation: 06/05/19 History of Present Illness: The patient is a 34 year old white female who denies any past cardiovascular history and only admits to a past medical history of anxiety who was referred for evaluation of chest discomfort concerning for angina pectoris and subsequent objective findings concerning for an acute non-ST segment elevation VA. The patient states the best of her knowledge she has been healthy and feeling well until yesterday. She notes yesterday during physical activity she felt a centralized chest burning sensation. Over time she experienced nausea, dyspnea, and bilateral upper extremity paresthesias. She did present to the [facility] emergency department for further evaluation. She was found to have an indeterminate troponin I level and an ECG that demonstrated sinus rhythm with no acute ECG changes. She underwent additional evaluation with a chest CT scan which was reported as negative for great vessel disease or thromboembolic disease. She was treated medically with aspirin and IV nitroglycerin and IV heparin. She was placed in the PCU for further evaluation and care. She states she has felt better since the initiation of medical therapy. Her troponin I levels have been followed and have been reported as positive. Her follow-up ECGs have demonstrated sinus rhythm with no acute ECG changes. She has denied previous episodes of chest discomfort at rest or with activity. There has been no orthopnea or PND or peripheral pitting edema. There has been no near syncope or syncope. She does not recall ever going through any other cardiovascular evaluation in the past. She does admit to chewing tobacco. [] Past Medical History Allergies/Adverse Reactions: Allergies Iodinated Contrast Media [CONTRASTS] Adverse Reaction (Verified 06/05/19 02:11) Itching Home Medications: Ambulatory Orders Medication Instructions Recorded Citalopram [Celexa] 10 mg PO DAILY 07/23/14 Norgestimate-Ethinyl Estradiol 1 each PO DAILY 07/23/14 [Tri-Sprintec Tablet] Oxycodone HCl/Acetaminophen 1 - 2 tablet PO Q4H PRN PRN #12 07/23/14 [Percocet 5/325] tablet Escitalopram Oxalate [Lexapro] DAILY 06/05/19 Surgical History: no surgical history - *Family History Maternal History Items: Diabetes, Heart Disease - Her maternal grandfather in his 60s had dysrhythmia for which pacemaker was considered. However he did before the pacemaker was inserted. Paternal History Items: Diabetes Lives: Alone Smoking Status: Current every day smoker Tobacco Use: Chew Review of Systems - Review of Systems General: Denies: Fever, Night Sweats, Fatigue Cardiovascular: Reports: Chest Discomfort, Chest Discomfort at Rest, Chest Discomfort with Exertion, Shortness of Breath. Denies: Orthopnea, PND, Peripheral Edema, Palpitations, Lightheadedness, Dizziness, Near Syncope, Syncope Respiratory: Denies: Cough, Sputum Production, Hemoptysis Gastrointestinal: Reports: Nausea. Denies: Hematemesis, Hematochezia, Melena Genitourinary: Denies: Dysuria, Hematuria Skin: Denies: Rash Subjectve: This is a 34-year-old white female who appears to be resting comfortably at the moment in no acute distress. Objective: Vital Signs Temp Pulse Resp BP Pulse Ox 98.3 F 72 18 134/86 H 95 06/05/19 03:28 06/05/19 07:22 06/05/19 03:28 06/05/19 07:00 06/05/19 07:48 Oxygen Delivery Method Room Air Weight: 206 lb 12.697 oz Body Mass Index (BMI) 39.0 Intake and Output for Last 24 Hours 06/03/19 06/04/19 06/05/19 23:59 23:59 23:59 Intake Total 123.80 / 123.80 Balance 123.80 / 123.80 General: Awake, Alert, Oriented x 3, Cooperative, No Acute Distress, Obese HEENT: Atraumatic, Normocephalic, PERRL, EOMI, Sclera Non Icteric Oral: Moist Mucosa Neck: Supple, Good ROM, No JVD Lungs: Clear to auscultation Cardiovascular: Regular Rhythm, Normal S1, Normal S2 Vascular: No Carotid Bruits Abdomen: Bowel Sounds Present, Soft, Non Tender Extremities: No edema Neurological: No Focal Motor or Sensory Deficit Psych/Mental Status: Appropriate 06/05/19 00:05: WBC 11.4 H, RBC 5.12, Hgb 15.1 H, Hct 45.0, MCV 87.9, MCH 29.5, MCHC 33.6, Plt Count 248, MPV 11.6, Immature Gran % (Auto) 0.400, Neut % (Auto) 75.0 H, Lymph % (Auto) 18.1 L, [place] % (Auto) 5.5, Eos % (Auto) 0.4, Baso % (Auto) 0.6, Absolute Neuts (auto) 8.5 H, Nucleated RBC % 0 06/05/19 00:05: Sodium 141, Potassium 4.0, Chloride 108 H, Carbon Dioxide 26.0, Anion Gap 7, BUN 14, Creatinine 0.90, Est GFR (MDRD) Af Amer 92, Est GFR (MDRD) Non-Af 76, BUN/Creatinine Ratio 15.6, Glucose 101, Calcium 9.0, Troponin I 0.390 H 06/05/19 00:05: APTT 29.2 06/05/19 03:02: Troponin I 3.800 H* 06/05/19 06:12: Triglycerides 93, Cholesterol 176, LDL Cholesterol 92, VLDL Cholesterol 19, HDL Cholesterol 65 06/05/19 06:12: Troponin I 6.230 H* 06/05/19 08:51: APTT 28.0 Rhythm: Sinus rhythm EKG: Sinus rhythm CXR: Preliminary evaluation: No acute cardiopulmonary disease process appreciated: Please see official report Chest CT Scan: As noted: Please see official report Assessment/Plan 1. Chest pain The patient did experience chest discomfort concerning for angina pectoris. Her chest discomfort does not appear to be classic for myopericarditis type symptoms. She has not been found to have evidence of thromboembolic disease. To the best of her knowledge she has no evidence of gastrointestinal related disease. She has had no physical trauma to her chest that she is aware of. Her evaluation thus far has demonstrated abnormal cardiac enzymes. Her ECG is demonstrated sinus rhythm with no acute ECG changes. Her radiologic studies have demonstrated no great vessel disease or thromboembolic disease. Thus at the present time the concern is regarding underlying premature coronary artery disease with an acute coronary syndrome and acute non-ST segment elevation VA. She has been treated for such with medical management. She has noted improvement in her symptoms. At the current time she will continue to be followed. She will continue medical adjustment as deemed appropriate. She has been recommended for further evaluation with diagnostic cardiac catheterization. The procedure and risk of been discussed with her and she is agreeable to this approach. 2. Acute non-ST segment elevation VA As noted above the concern is an acute non-ST segment elevation VA. Thus far there does not appear to be a secondary component leading to this event. Thus she will continue evaluation care as noted above. 3. Tobacco abuse She does use chewing tobacco. She has been counseled on the need to discontinue her tobacco intake. The above was discussed with the patient with her mother present. She was agreeable to this approach. This note was generated using a voice recognition system and there may be incorrect words, spelling or punctuation that were not noted when reviewing the office note prior to saving.
--- NOTE | 2019-06-05 10:07 | ECHOCS_ITS ---
Reason For Study: S/P NV Procedure This was a 2D Doppler, Color Flow transthoracic echocardiogram. The study was technically difficult. Contrast injection was performed. Exam performed portable in patient room. Left Ventricle Normal LV size. Segmental dysfunction with preserved ejection fraction (see wall motion). The estimated ejection fraction is 65 %. No evidence for diastolic dysfunction. Mid-Anterior : Hypokinetic. Mid-Lateral : Hypokinetic. Anterior Fountain : Hypokinetic. Lateral [place]ountain : Akinetic. Right Ventricle Normal RV size. Normal systolic function. Atria Normal left atrium. Normal right atrium. No doppler evidence for ASD. Bubble contrast study negative for right to left interatrial shunt. Mitral Valve There is no mitral annular calcification. Normal mitral valve. Trivial mitral valve insufficiency. Tricuspid Valve Normal tricuspid valve. Trivial tricuspid valve insufficiency. Unable to estimate RV systolic pressure/pulmonary artery pressure due to technically difficult study. Aortic Valve Trisinus/trileaflet aortic valve. Mild focal aortic valve thickening. Pulmonic Valve The pulmonic valve is not well visualized. Trivial pulmonic valve insufficiency. Great Vessels Normal sized aortic root. Pericardium/Pleural No pericardial effusion. Medication Diluted definity 2ml given slow IV push to enhance endocardial definition. MMode/2D Measurements & Calculations LVIDd: 3.9 cm IVSd: 1.0 cm Ao root diam: 2.5 cm LVIDs: 2.6 cm LVPWd: 1.0 cm RVDd: 3.6 cm FS: 34.8 % LAV(MOD-bp): 29.4 ml LA A4 area: 12.3 cm2 RA A4 area: 11.0 cm2 LAV(MOD-bp) Indexed: 15.4 ml/m2 LAV(MOD-sp2): 28.5 ml LAV(MOD-sp4): 27.8 ml Time Measurements MV dec time: 0.22 sec Doppler Measurements & Calculations MV E max say: 98.7 cm/sec Lat Peak E' Say: 12.6 cm/sec Med Peak E' Say: 8.3 cm/sec MV A max say: 67.4 cm/sec E/E' lat: 7.8 E/E' med: 11.9 MV E/A: 1.5 MV V2 max: 101.1 cm/sec MV P1/2t max say: 101.1 cm/sec Ao V2 max: 132.9 cm/sec MV max P.1 mmHg MV P1/2t: 91.4 msec Ao max P.1 mmHg MV V2 mean: 53.8 cm/sec MV dec slope: 324.1 cm/sec2 MV mean P.4 mmHg MV V2 VTI: 32.7 cm MVA(P1/2t): 2.4 cm2 LV V1 max: 112.2 cm/sec PA V2 max: 100.2 cm/sec LV V1 max P.0 mmHg Interpretation Summary The study was technically difficult. Contrast injection was performed. Segmental dysfunction with preserved ejection fraction (see wall motion). The estimated ejection fraction is 65 %. Trivial mitral valve insufficiency. Trivial tricuspid valve insufficiency. Mild focal aortic valve thickening. Trivial pulmonic valve insufficiency. Unable to estimate RV systolic pressure/pulmonary artery pressure due to technically difficult study. No evidence for diastolic dysfunction. Ordering Physician: Abisai Kowalski Performed By: Danielito Galo RCS
[2019-06-05] MEDS: Aspirin 81 MG TAB.CHEW PO (10:15)
[2019-06-05 10:18] LABS: Internal QC Validated? YES +Cl - CLEAR BKGD; Pregnancy, Serum, hCG Quali. NEGATIVE Negative
--- NOTE | 2019-06-05 11:23 | CASEMGMT ---
RN ISELA SEQUINS SLINGER CM to room to meet with patient for initial transition planning/care coordination assessment. ITZEL WEISS introduced self and role at [facility]. Pt voices understanding and consents to assessment at this time. Pt resting in bed in no distress at this time. Pt is A/O at this time and answers all questions appropriately. Care providers, pharmacy, and demographics verified/updated at this time. PCP: Renetta Specialists: none Preferred Pharmacy: [facility] in [place] Insurance: [place] Prescription Benefit: Yes Living Will/HPOA: Pt does not currently have LW/HCPOA and declines info at this time. Pt made aware that she can contact SW as an out-pt and make appt in the future if she decides she would like to talk with someone about this or would like to utilize [facility] social work for advanced directive completion. Given Manager Transmission Rac card with information and contact number. Pt expresses understanding. LNOK: Mother, Tammi Feliciano Living Arrangements: Lives alone in an apartment. Independent. Works full-time Transportation: Pt states drives self and states no transportation concerns at this time. Mother will take her home @ discharge. DME: Has a BP cuff/machine. Denies other DME needs. HHC/SNF: No history of either. Pt wishes to return home and states has no concerns with going home at time of discharge. CM to follow for any discharge planning/needs. Pt voices no further concerns/needs at this time. Advised pt to ask for CM if any further questions/concerns/needs arise. Voices understanding. Pt discharge plan: Home Plan: Home Shanti KRAUSE RN, CM
--- NOTE | 2019-06-05 11:36 | NURSING ---
verbal report given to mulu garcia in clinical laboratory medical director
--- NOTE | 2019-06-05 13:33 | CL.I_ITS ---
Patient Name: JULISSA GE Study Date: 06/05/2019 Performing: Issac Delong MD Ht: 61.02 inches 155 cm : 1985 Wt: 207.23 lbs 94 kg Age: 34 Gender: female BSA: 1.92 PROCEDURE(S) PERFORMED [id number] W OR WO PTCA, SINGLE CORONARY ARTERY CLINICAL PROFILE AND CO-MORBIDITIES Indications: ACS <= 24 hrs, New Onset Angina <= 2 months, Suspected CAD Heart Failure: None Stress/Imaging Stress/Image Study Performed: No Angina Classification Anginal Classification w/in 2 Weeks: No symptoms CAD Presentations: Unstable angina. Non-STEMI. Symptom onset Date/Time: 06/05/2019 Time Not Avail able Comorbidities/Risk Factors: Current/Recent Smoker (< 1year) Hypertension Dyslipidemia Family History of Premature CAD CONCLUSIONS Successful PTCA/PRADIP mid superior branch of OM#1 with a 2.25 x 20 Promus Synergy at 9 marilu; 85%-->0%, n o dissection. RECOMMENDATIONS Highly recommend quitting all tobacco products Follow up with primary cell liner Risk factor modification ASA Indefinitley Plavix for at least 12 months Routine post interventional care Refer for Outpatient Cardiac Rehab Manual sheath removal per protocol Follow up with Dr. Kowalski Successful Mynx Control Closure of RFA. DESCRIPTION OF PROCEDURE The patient arrived to the procedure lab. The risks and benefits of the procedure as well as a full d escription of our services here and current unavailability of surgical backup were fully explained to the patient and/or their significant other prior to the catheterization. The Timeout was completed, verifying the correct patient and procedure. The patient's procedural site was prepped and draped in the usual fashion. Local anesthetic was given subcutaneously to right groin region with Lidocaine 2% Using a modified Seldinger technique,arterial access was obtained via the right femoral artery, a 4Fr sheath was inserted Left Coronary Artery selective angiography was performed in multiple views using a 4 Fr. JL5 catheter. Right Coronary Artery selective angiography was then performed in multiple vie ws using a 4 Fr. 3DRC catheter. Left Ventriculography was performed in [place] projection using a 4 Fr. P igtail catheter. LV to AO pullback pressures were then recorded.The images were reviewed and options discussed. A decision was then made to proceed with an Intervention, IVUS or other adjunc t procedure. Arterial sheath was exchanged for a 6 Fr Sheath. EBU 3.5 Guide catheter was inserted and engaged into the LCA. BMW Guide wire was advanced to the 1st OM. Emerge 2.00x12 Balloon catheter was inserted . PTCA balloon inflated at 6 atms for 10 secs. PTCA balloon inflated at 6 atms for 29 secs. Angiogram performed post balloon dilatation. Synergy 2.25x20 Drug Eluting stent was inserted. Angiogram perfor med post stent deployment. Contrast was injected through the sheath and the Right Iliac and Femoral a rtery were assessed for possible closure device. The arterial sheath was pulled and a Mynx closure d evice was deployed for hemostasis INTERVENTION INFORMATION LESION SITE: 1st OM (Mid) Lesion Complexity: High/C, lesion at bifurcation: No, thrombus present: No, lesion length: 20 mm, cul prit lesion: Yes Pre Stenosis: 85 % Pre intervention CORNEL flow: 3 PROCEDURE: Drug Eluting Stent with pre dilatation. Post Stenosis: 0 % Post intervention CORNEL flow: 3 Lesion Devices: [place] .014 BMW [place] Straight 190cm Medtronic 6 Fr EBU3.5 100cm Guide Catheter Aj Sci EMERGE MR 2.00x12 BALLOON Aj Sci Synergy MR PRADIP 2.25x20 COMPLICATIONS No Complications PROCEDURE MEDICATIONS Versed 1 mg IV Oxygen: 2 L/min via nasal cannula Heparin 6000 unit(s) IV 06/05/2019 13:00:11 Nitro glycerin drip infusing @ 10mcq as per PCU ^FreeText^ 06/05/2019 11:55:59 Nitro 200 mcg IC 06/05/2019 13:01:13 Nitro 200 mcg IC 06/05/2019 13:08:03 Nitro 300 mcg IC 06/05/2019 13:13:37 Solu-medrol 125 mg IV 06/05/2019 12:34:47 IV Bolus: .9 NaCl 400 ml total 06/05/2019 13:21:55 SUMMARY OF HEMODYNAMIC DATA Time AIR REST ECG 11:50:45 AO 132/86 (105) SA 12:38:05 LV 145/-8, 25 12:45:02 LV 149/-11, 18 12:45:08 LV 144/-10, 20 12:46:07 LVp 145/-9, 20 12:46:13 AOp 141/82 (109) 12:46:18 Signed By Issac Delong MD On 06/05/2019 13:32:33 Issac Delong MD
[2019-06-05 13:40] LABS: ACT Activated Clotting Time 230 sec (74-137)
--- NOTE | 2019-06-05 13:47 | NURSING ---
verbal report given to mulu rodriguez in icu
--- NOTE | 2019-06-05 14:17 | EKG12_ITS ---
Test Reason : POST STENT Blood Pressure : / mmHG Vent. Rate : 059 BPM Atrial Rate : 059 BPM P-R Int : 162 ms QRS Dur : 072 ms QT Int : 412 ms P-R-T Axes : 044 037 060 degrees QTc Int : 407 ms Sinus bradycardia with sinus arrhythmia Otherwise normal ECG When compared with ECG of 05-JUN-2019 02:34, MANUAL COMPARISON REQUIRED, DATA IS UNCONFIRMED Confirmed by MART GLOVER, MYESHA ([id number]), publication editor LENNOX FLAHERTY ([id number]) on 06/10/2019 11:49:46 AM Referred By: Jadiel MORALES Confirmed By:MYESHA CEVALLOS MD
--- NOTE | 2019-06-05 14:54 | CRPHASE1_ITS ---
Patient Communication PHII Cardiac Rehab Discussed with Patient:: Yes Guide to Cardiac Rehab Given to Patient:: Yes Cardiac Rehab Facility Choice List Given to Patient:: Yes - chooses [facility] Choice Program [facility] CR PHII:: Communication Given to CR, Refer to [facility] Vice President Of Development:: Issac Delong Phase II Cardiac Rehab:: Yes Sessions:: 36 sessions - 3 days/wk, 12 weeks Risk Factors/Lifestyle Hx Obesity: Yes Height: 1.55 m Weight:: 93.44 kg BMI: 38.9 Laboratory Values: Cardiac Rehab Phase I Labs Triglycerides 93 mg/dL (-199) 06/05/19 06:12 Cholesterol 176 mg/dL (200) 06/05/19 06:12 LDL Cholesterol 92 mg/dL (0-130) 06/05/19 06:12 HDL Cholesterol 65 mg/dL (40-) 06/05/19 06:12 Phase I Education Given On:: [place], Nutrition, Antiplatelet medication, CHF, Smoking cessation, Diabetes - Type I, Diabetes - Type II Issues Affecting Care:: None Knowledge of Condition:: Yes Hospital Course Presenting Symptoms:: CP Cardiac Cath Date:: 06/05/19 Medical/Surgical History PTCA:: Yes Discharge/Home/Social Eval Discharge Disposition: Home Cardiac Rehabilitation Info Cardiac Rehabilitation Program Information: Cardiac Rehabilitation is important for patients like you who are recovering from a heart problem. Cardiac rehabilitation programs are recognized as integral to the continued care of the patient with coronary heart disease. The cardiac rehabilitation program is designed to optimize a patient's physical, psychological, and social functioning. Health career technical education instructor work in cardiac rehabilitation programs and assist you with getting the treatments you need to get stronger and healthier - like exercise, healthy eating habits, and medications. Cardiac rehabilitation has been show to help people with heart problems live longer and have better life enjoyment than people who do not go to cardiac rehabilitation. Please contact the Cardiac Rehabilitation Program at [facility] at in two weeks if you have not heard from them.
--- NOTE | 2019-06-05 14:59 | CRPH1.INST_ITS ---
General Education CAD and cardiac anatomy and function:: Patient communicates acknowledgment Explanation of diagnoses and procedures:: Patient communicates acknowledgment Sign/Symptoms of DC:: Patient communicates acknowledgment Antiplatelet therapy: Patient communicates acknowledgment Proper use of NTG-SL: Not instructed Emergency procedures and activation of EMS: Patient communicates acknowledgment Compliance of all prescribed medications: Patient communicates acknowledgment Smoking Patient Nicotine/Smoking Risk Factors Are:: Smokeless tobacco Recommendations Include:: Smoking cessation strategies/Smoking packet, Second- hand smoke recommendation, Participation in a smoking cessation program, Previous smoker; encourage continued cessation Nicotine/Smoking Response Code:: Patient communicates acknowledgment Dyslipidemia Dyslipidemia Response Code:: Patient communicates acknowledgment Overweight/Obesity Patient Overweight/Obesity Risk Factors Are:: Obesity - > or = 30 Recommendations Include:: Weight loss of 5-10%, Reduced calorie diet, Exercise 5-7 times/week Overweight/Obesity:: Patient communicates acknowledgment Hypertension Hypertension:: Patient communicates acknowledgment Heart Disease Heart Disease Response Code:: Patient communicates acknowledgment Diabetes Diabetes:: Patient communicates acknowledgment Metabolic Syndrome Metabolic Syndrome Response Code:: Patient communicates acknowledgment Sedentary Sedentary Response Code:: Patient communicates acknowledgment Stress Stress Response Code:: Patient communicates acknowledgment
[2019-06-05] MEDS: 0.9% Normal Saline 1,000 ML 150 ML IV (15:15)
[2019-06-05 16:45] LABS: Bedside Glucose 122 mg/dL (70-110)
--- NOTE | 2019-06-05 20:44 | CL.D_ITS ---
Patient Name: JULISSA GE Study Date: 06/05/2019 Performing: Abisai Kowalski MD Ht: 61.02 inches 155 cm : 1985 Wt: 207.23 lbs 94 kg Age: 34 Gender: female BSA: 1.92 PROCEDURE(S) PERFORMED FC52-QUQ/COR/LV [id number] W OR WO PTCA, SINGLE CORONARY ARTERY CLINICAL PROFILE AND INDICATIONS Indications: ACS <= 24 hrs, New Onset Angina <= 2 months, Suspected CAD, ACS <= 24 hrs Heart Failure: None Stress/Imaging Stress/Image Study Performed: No Stress/Image Study Performed: No Angina Classification Anginal Classification w/in 2 Weeks: No symptoms CAD Presentations: Unstable angina. Non-STEMI. Symptom onset Date/Time: 06/05/2019 Time Not Avail able Non-STEMI. Comorbidities/Risk Factors: Current/Recent Smoker (< 1year) Hypertension Dyslipidemia Family History of Premature CAD CONCLUSIONS Elevated Left Ventricular End Diastolic Pressure Normal LV size, wall motion,and systolic function LVEF: by LV gram 65 % [place] Multivessel CAD RECOMMENDATIONS Risk factor modification Medical therapy Referred for immediate PCI DESCRIPTION OF PROCEDURE The patient arrived to the procedure lab. The risks and benefits of the procedure as well as a full d escription of our services here and current unavailability of surgical backup were fully explained to the patient and/or their significant other prior to the catheterization. The Timeout was completed, verifying the correct patient and procedure. The patient's procedural site was prepped and draped in the usual fashion. Local anesthetic was given subcutaneously to right groin region with Lidocaine 2%. Using a modified Seldinger technique, arterial access was obtained via the right femoral artery, a 4 Fr sheath was inserted Left Coronary Artery selective angiography was performed in multiple views us ing a 4 Fr. JL5 catheter. Right Coronary Artery selective angiography was then performed in multiple views using a 4 Fr. 3DRC catheter. Left Ventriculography was performed in [place] projection using a 4 Fr . Pigtail catheter. LV to AO pullback pressures were then recorded.Contrast was injected through the sheath and the Right Iliac and Femoral artery were assessed for possible closure device.T he arterial sheath was pulled and a Mynx closure device was deployed for hemostasis CORONARY ANGIOGRAPHY DOMINANCE: Right Dominant LEFT HEART ASSESSMENT Left Ventricular Ejection Fraction: by LV Gram 65 % Normal LV wall motion Elevated Left Ventricular End Diastolic Pressure LVEDP: 18 mmHg LEFT MAIN: Angiographically normal LEFT ANTERIOR DESCENDING ARTERY: MID LAD: possible intramyocardial bridge CIRCUMFLEX ARTERY: OM 1: Mid - bifurcating branch: long: diffuse: 90 % Stenosis RIGHT CORONARY ARTERY: Angiographically normal AORTIC ROOT: Angiographically normal COMPLICATIONS No Complications PROCEDURE MEDICATIONS Versed 1 mg IV Oxygen: 2 L/min via nasal cannula Heparin 6000 unit(s) IV 06/05/2019 13:00:11 Nitro glycerin drip infusing @ 10mcq as per PCU ^FreeText^ 06/05/2019 11:55:59 Nitro 200 mcg IC 06/05/2019 13:01:13 Nitro 200 mcg IC 06/05/2019 13:08:03 Nitro 300 mcg IC 06/05/2019 13:13:37 Solu-medrol 125 mg IV 06/05/2019 12:34:47 IV Bolus: .9 NaCl 400 ml total 06/05/2019 13:21:55 SUMMARY OF HEMODYNAMIC DATA Time AIR REST ECG 11:50:45 AO 132/86 (105) SA 12:38:05 LV 145/-8, 25 12:45:02 LV 149/-11, 18 12:45:08 LV 144/-10, 20 12:46:07 LVp 145/-9, 20 12:46:13 AOp 141/82 (109) 12:46:18 Signed By Abisai Kowalski MD On 06/05/2019 20:44:20 Abisai Kowalski MD
[2019-06-05] MEDS: Metoprolol Tartrate 25 MG Tablet PO (21:01)
[2019-06-05] MEDS: Escitalopram Oxalate 10 MG Tablet PO (22:28)
[2019-06-05 22:41] LABS: Bedside Glucose 198 mg/dL (70-110)
[2019-06-06] VITALS (24 sets, daily range): BP systolic 99–120; BP diastolic 46–82; PULSE 56–109; RESP 10–27; TEMP 36.2–36.7; O2SAT 90–99
[2019-06-06 02:21] LABS: Bedside Glucose 154 mg/dL (70-110)
[2019-06-06 05:46] LABS: Hemoglobin 12.9 g/dL (12.0-15.0); Mean Corp Hgb Conc 33.9 g/dL (32-36); Mean Corpuscular Hgb 29.5 pg (27.0-32.0); Mean Platelet Vol. 12.7 fl (6.2-12.0); Platelet Count 237 K/mm3 (150-450); RBC Distribution Width SD 41.2 fl (35.1-43.9); Red Blood Count 4.37 M/mm3 (4.2-5.4); White Blood Count 16.3 K/mm3 (4.4-11.0)
[2019-06-06 06:08] LABS: ALB/GLOB Ratio 0.7 RATIO (0.9-2.4); AST(SGOT) 37 U/L (15-37); Alanine Aminotransfer ALT/SGPT 21 U/L (13-56); Albumin, Serum 2.7 g/dL (3.2-5.0); Alkaline Phosphatase 87 U/L (45-117); Anion Gap 5 (5-15); BUN 12 mg/dL (7-18); BUN/Creat Ratio 14.4 RATIO (10-20); Chloride 110 mmol/L (98-107); Creatinine, Serum 0.83 mg/dL (0.55-1.02); EST Glomerular Filtration Rate 83 mL/min (>60); Est Glom Filt Rate - Afr Amer 101 mL/min (>60); Estimated Creatinine Clearance 72.07 ml/min; Globulin 3.7 g/dL (2.2-4.2); Glucose 112 mg/dL (74-106); Potassium 4.3 mmol/L (3.5-5.1); Protein, Total 6.4 g/dL (6.4-8.2); Sodium Level 139 mmol/L (136-145)
[2019-06-06] MEDS: Losartan Potassium 25 MG Tablet 12.5 MG PO (08:31)
[2019-06-06] MEDS: Aspirin 81 MG TAB.CHEW PO (08:31)
[2019-06-06] MEDS: Clopidogrel Bisulfate 75 MG Tablet PO (08:31)
[2019-06-06] MEDS: Metoprolol Tartrate 25 MG Tablet 12.5 MG PO ×2 (08:34→21:16)
--- NOTE | 2019-06-06 10:10 | PN_ITS ---
Patient Problems: Active and Suspected Problems (Last Updated 06/05/19 @ 14:09 by Debo Rasmussen) S/P coronary artery stent placement (Acute ~06/05/19) Successful PTCA/PRADIP mid superior branch of OM#1 with a 2.25 x 20 Promus Synergy at 9 marilu; 85%-->0%, no dissection 06/05/19 NSTEMI (non-ST elevated myocardial infarction) (Acute) Subjective: Chief complaint: Follow-up after admission for acute non-ST relation RI, status post cardiac catheterization. Patient seen and examined. No acute events overnight. She denies any more chest pain, denies shortness of breath. Denies dizziness or lightheadedness. She has been intermittently bradycardic, heart rate in the high 50s, other vital signs are stable and she is asymptomatic. - Physical Exam Vitals/I&O's: Vital Signs Temp Pulse Resp BP Pulse Ox 98 F 79 14 110/74 97 06/06/19 06:00 06/06/19 08:34 06/06/19 06:00 06/06/19 08:34 06/06/19 06:00 Oxygen Delivery Method Room Air Weight: 206 lb Body Mass Index (BMI) 39.0 Intake and Output for Last 24 Hours 06/04/19 06/05/19 06/06/19 23:59 23:59 23:59 Intake Total 1336.80 / 1576.80 240 / 240 Output Total 250 / 250 Balance 1336.80 / 1326.80 -10 / -10 General: Alert, Oriented x3, Cooperative, No apparent distress HEENT: Atraumatic, PERRLA, EOMI, Normocephalic Oral: Moist Mucosa, No Gingival or Mucosal Lesions/ Ulcerations Neck: Supple, No JVD, Negative Carotid Bruits, Trachea Midline, Thyroid Normal Size and Texture Lungs: Clear to auscultation, Normal air movement, No rhonchi, No wheeze, No rales Cardiovascular: Regular rate, Regular Rhythm, Normal S1, Normal S2, PMI Normal Abdomen: Bowel Sounds Present, Soft, Non Tender, Non-Distended, No Hepato- splenomegaly, Obese Extremities: No clubbing, No cyanosis, No edema Skin: No rashes, No breakdown Lymphatic: No Cervical, Supraclavicular, or Inguinal Adenopathy Neurological: Cranial nerves II-XII grossly intact, Neuro grossly intact Psych/Mental Status: Normal Affect, Appropriate, Alert and oriented to time, place, person, mood and affect Laboratory Results 06/05/19 00:05: Serum , Qual NEGATIVE 06/05/19 13:20: Activated Clotting Time 230 H 06/05/19 16:40: POC Glucose 122 H 06/05/19 22:31: POC Glucose 198 H 06/06/19 02:15: POC Glucose 154 H 06/06/19 05:04: WBC 16.3 H, RBC 4.37, Hgb 12.9, Hct 38.0, MCV 87.0, MCH 29.5, MCHC 33.9, RDW Std Deviation 41.2, RDW Coeff of Precious 13.0, Plt Count 237, MPV 12.7 H 06/06/19 05:04: Sodium 139, Potassium 4.3, Chloride 110 H, Carbon Dioxide 24.0, Anion Gap 5, BUN 12, Creatinine 0.83, Estim Creat Clear Calc 72.07, Est GFR (MDRD) Af Amer 101, Est GFR (MDRD) Non-Af 83, BUN/Creatinine Ratio 14.4, Glucose 112 H, Calcium 8.0 L, Total Bilirubin 0.30, AST 37, ALT 21, Alkaline Phosphatase 87, Total Protein 6.4, Albumin 2.7 L, Globulin 3.7, Albumin/Globulin Ratio 0.7 L Clinical Impression(s) from Imaging Studies Chest X-Ray 06/05/19 00:00 IMPRESSION: Normal. at 0020 Reported and signed by: Julius Bolden MD Electronically Signed: Julius Bolden MD at 0:19 EST Tel , Service support , Chest CTA 06/05/19 00:56 IMPRESSION: No pulmonary embolism, aortic aneurysm, or aortic dissection. Individualized dose optimization techniques were used for this CT. at 0205 Reported and signed by: Julius Bolden MD Electronically Signed: Julius Bolden MD at 2:04 EST Tel , Service support , Current Medications Acetaminophen (Tylenol) 650 mg PO Q6H PRN PRN PRN Reason: Pain Score 1-3/10 Aspirin (Aspirin, Baby) 81 mg PO DAILY@0800 [facility] Last Admin: 06/06/19 08:31 Dose: 81 mg Documented by: Atorvastatin Calcium (Lipitor) 80 mg PO QHS [facility] Last Admin: 06/05/19 21:01 Dose: 80 mg Documented by: Atropine Sulfate () 0.5 mg IV UD PRN PRN Reason: HR <50 bpm Clopidogrel Bisulfate (Plavix) 75 mg PO DAILY [facility] Last Admin: 06/06/19 08:31 Dose: 75 mg Documented by: Diazepam (Valium) 5 mg PO Q6H PRN PRN PRN Reason: BACK SPASMS/ANXIETY Escitalopram Oxalate (Lexapro) 10 mg PO QHS [facility] Last Admin: 06/05/19 22:28 Dose: 10 mg Documented by: Glucagon () 1 mg IM .X1 PRN PRN Reason: Hypoglycemia Heparin Sodium (Beef Lung) (Heparin 500 Unit/5 Ml (100/Ml)) 500 unit IV UD PRN PRN Reason: HEPARIN FLUSH Heparin Sodium (Porcine) (Heparin Na) 0 unit IV UD PRN; Protocol Dextrose (Dextrose 10%-Water) 250 mls @ 999 mls/hr IV X1 PRN; Protocol PRN Reason: HYPOGLYCEMIA Sodium Chloride () 250 mls @ 15 mls/hr IV .[id number] PRN PRN Reason: Saline Flush Sodium Chloride () 1,000 mls @ 0 mls/hr IV .Q0M [facility] Labetalol HCl (Trandate) 5 mg IV X1 PRN PRN Reason: SBP > 160 when pulling sheath Losartan Potassium (Cozaar) 12.5 mg PO DAILY [facility] Last Admin: 06/06/19 08:31 Dose: 12.5 mg Documented by: Metoclopramide HCl (Reglan) 5 mg IV Q6H PRN PRN PRN Reason: NAUSEA/VOMITING Metoprolol Tartrate (Lopressor (Beta Leo)) 12.5 mg PO BID [facility] Last Admin: 06/06/19 08:34 Dose: 12.5 mg Documented by: Morphine Sulfate () 2 mg IV Q4H PRN PRN PRN Reason: back pain (-04/02) Nitroglycerin (Nitrostat) 0.4 mg SUBLINGUAL Q5M PRN PRN Reason: CARDIAC/CHEST PAIN Ondansetron HCl (Zofran) 4 mg IV Q8H PRN PRN PRN Reason: NAUSEA/VOMITING Sodium Chloride () 10 - 40 ml IV UD PRN PRN Reason: SALINE FLUSH Sodium Chloride () 500 ml IV BOLUS PRN PRN Reason: VASO-VAGAL PROTOCOL Medical Necessity - Tobacco Use Smoking Status: Current every day smoker Tobacco Use: Chew Assessment/Plan All Active Problems (Last Updated 06/05/19 @ 14:09 by Debo Rasmussen) S/P coronary artery stent placement (Acute ~06/05/19) NSTEMI (non-ST elevated myocardial infarction) (Acute) This is a 54 years old female patient presented to the emergency room because of chest pain found to have elevated troponin without acute ischemic changes on EKG consistent with acute non-ST elevation RI, underwent cardiac catheterization and she had PTCA/PRADIP to mid superior branch of the 2 obtuse marginal artery. #1 acute non-ST relation RI: Status post cardiac catheterization, found to have 85% stenosis of the mid superior branch of the obtuse marginal artery, status post PTCA/PRADIP. She is on aspirin, statins, Plavix, losartan and metoprolol. She has no more chest pain vital signs are stable except intermittent bradycardia. 2D echocardiogram revealed segmental dysfunction with preserved ejection fraction, ejection fraction 65%. During the case. Plan: Decrease metoprolol to 12.5 mg p.o. twice daily, continue other treatments, transfer to PCU. #2 leukocytosis: Attributed to steroids. Patient received IV Solu-Medrol and prednisone. She has been afebrile, no symptoms suggestive of infection. #3 tobacco abuse: Counseled. #4 depression: Continue Lexapro. #5 DVT prophylaxis: Low risk patient, ambulate. This note was generated with [employer] dictation software. It may contain incorrect words, spelling, and punctuation that were not noted in checking the note before signing. Code Visit Inpatient E&M: 32933 Subs Hosp L2
--- NOTE | 2019-06-06 10:24 | PCM.PN.CARD ---
Subjectve: The patient is awake and alert. She states she feels better overall. She denies any ongoing chest discomfort or difficulty breathing. Objective: Vital Signs Temp Pulse Resp BP Pulse Ox 98 F 79 14 110/74 97 06/06/19 06:00 06/06/19 08:34 06/06/19 06:00 06/06/19 08:34 06/06/19 06:00 Oxygen Delivery Method Room Air Weight: 206 lb Body Mass Index (BMI) 39.0 Intake and Output for Last 24 Hours 06/04/19 06/05/19 06/06/19 23:59 23:59 23:59 Intake Total 1336.80 / 1576.80 240 / 240 Output Total 250 / 250 Balance 1336.80 / 1326.80 -10 / -10 General: Awake, Alert, Oriented x 3, Cooperative, No Acute Distress, Obese HEENT: Atraumatic, Normocephalic, PERRL, EOMI, Sclera Non Icteric Oral: Moist Mucosa Neck: Supple, Good ROM, No JVD Lungs: Clear to auscultation Cardiovascular: Regular Rhythm, Normal S1, Normal S2 Vascular: No Carotid Bruits, Normal Femoral Pulses Abdomen: Bowel Sounds Present, Soft, Non Tender Extremities: No edema Neurological: No Focal Motor or Sensory Deficit Psych/Mental Status: Appropriate 06/06/19 05:04: WBC 16.3 H, RBC 4.37, Hgb 12.9, Hct 38.0, MCV 87.0, MCH 29.5, MCHC 33.9, Plt Count 237, MPV 12.7 H 06/06/19 05:04: Sodium 139, Potassium 4.3, Chloride 110 H, Carbon Dioxide 24.0, Anion Gap 5, BUN 12, Creatinine 0.83, Est GFR (MDRD) Af Amer 101, Est GFR (MDRD) Non-Af 83, BUN/Creatinine Ratio 14.4, Glucose 112 H, Calcium 8.0 L, Total Bilirubin 0.30 Rhythm: Sinus rhythm: One episode of an irregular wide-complex rhythm (potentially compatible with a reperfusion dysrhythmia) EKG: Sinus rhythm; nonspecific T wave abnormality Medical Necessity - Tobacco Use Smoking Status: Current every day smoker Tobacco Use: Chew Assessment/Plan 1. CAD: Premature The patient was evaluated. She underwent diagnostic cardiac catheterization. She was found to have CAD and angiographically significant appearing CAD in the bifurcating OM vessel. She subsequently underwent PTCA/PRADIP. At the present time she appears to be recuperating with no ongoing acute issues or concerns that she had prior to her hospitalization. She will continue medical management with adjustment of dosage as deemed appropriate. She will need future outpatient cardiovascular follow-up and cardiac rehabilitation. 2. Acute non-ST segment elevation MS As noted above the concern is an acute non-ST segment elevation MS. She has undergone evaluation care as noted above. The present time she will be transferred to the PCU for continued evaluation and care. 3. Tobacco abuse She does use chewing tobacco. She has been counseled on the need to discontinue her tobacco intake. The above was discussed with the patient and Dr. Arevalo. This note was generated using a voice recognition system and there may be incorrect words, spelling or punctuation that were not noted when reviewing the office note prior to saving.
--- NOTE | 2019-06-06 15:00 | NURSING ---
report called to [facility] for transfer to room 128 family present ,transferred per wheelchair with belongings
[2019-06-06 16:25] LABS: Bedside Glucose 101 mg/dL (70-110)
[2019-06-06] MEDS: Escitalopram Oxalate 10 MG Tablet PO (21:15)
[2019-06-06] MEDS: Atorvastatin Calcium 80 MG Tablet PO (21:16)
[2019-06-07 02:40] VITALS: PULSE 63
[2019-06-07 03:30] VITALS: BP 106/57; PULSE 81; RESP 16; TEMP 36.6; O2SAT 96
[2019-06-07 06:33] LABS: Absolute Neutrophil Count 6.8 X10^3/uL (2.0-7.7); Basophil# 0.09 X10^3/uL; Basophil% 0.8 % (0-1); Eosinophil# 0.03 X10^3/uL; Eosinophils% 0.3 % (0-5); Hemoglobin 14.4 g/dL (12.0-15.0); Lymphocyte % 34.3 % (19-41); Mean Corp Hgb Conc 32.7 g/dL (32-36); Mean Corpuscular Hgb 28.9 pg (27.0-32.0); Mean Corpuscular Volume 88.4 fL (81-99); Mean Platelet Vol. 12.2 fl (6.2-12.0); Monocyte# 0.88 X10^3/uL; Monocyte% 7.4 % (0-10); NRBC Flagged by Analyzer 0 % (0-5); Neutrophil # 6.82 X10^3/uL (2.7-7.7); Neutrophil % 56.8 % (47-70); Platelet Count 233 K/mm3 (150-450); RBC Distribution Width CV 13.2 % (11.6-14.6); RBC Distribution Width SD 42.8 fl (35.1-43.9); Red Blood Count 4.98 M/mm3 (4.2-5.4)
[2019-06-07 07:01] VITALS: PULSE 89
[2019-06-07 07:34] LABS: Anion Gap 4 (5-15); BUN 17 mg/dL (7-18); BUN/Creat Ratio 18.6 RATIO (10-20); Calcium,Total 8.1 mg/dL (8.5-10.1); Chloride 107 mmol/L (98-107); Creatinine, Serum 0.91 mg/dL (0.55-1.02); EST Glomerular Filtration Rate 75 mL/min (>60); Est Glom Filt Rate - Afr Amer 91 mL/min (>60); Estimated Creatinine Clearance 65.73 ml/min; Glucose 82 mg/dL (74-106); Potassium 4.1 mmol/L (3.5-5.1); Sodium Level 136 mmol/L (136-145)
[2019-06-07 07:45] VITALS: O2SAT 96
--- NOTE | 2019-06-07 08:12 | PCM.DC ---
- Discharge Diagnoses Current Active Problems: Current Active and Chronic Problems (Last Updated 06/05/19 @ 14:09 by Debo Rasmussen) S/P coronary artery stent placement (Acute ~06/05/19) Successful PTCA/PRADIP mid superior branch of OM#1 with a 2.25 x 20 Promus Synergy at 9 marilu; 85%-->0%, no dissection 06/05/19 Atherosclerotic heart disease of [place] coronary artery without angina pectoris (Chronic) NSTEMI (non-ST elevated myocardial infarction) (Acute) Tobacco abuse (Chronic) You will use the following diet at home:: Cardiac Your food should be the consistency of: Regular Discharge Activity: Return to Normal Activity Weight Bearing Status: Full weight bearing Call your doctor if you observe: Fever of 101 or Higher, Shortness of breath, Dizziness, Fainting spells, Chest pain, Increased palpitations (irregular heartbeat), Uncontrolled pain Instructions: Coronary Stents, Heart Attack Allergies/Adverse Reactions: Allergies Iodinated Contrast Media [CONTRASTS] Adverse Reaction (Verified 06/05/19 02:11) Itching Medications to take at Discharge Norgestimate-Ethinyl Estradiol [Tri-Sprintec Tablet] 1 each PO DAILY 07/23/14 Escitalopram Oxalate [Lexapro] 10 mg PO DAILY 06/05/19 Aspirin [Aspirin, Baby] 81 mg PO DAILY@0800 #90 tab.chew 06/07/19 Atorvastatin Calcium [Lipitor] 80 mg PO QHS #90 tab 06/07/19 Clopidogrel Bisulfate [Plavix] 75 mg PO DAILY #90 tab 06/07/19 Losartan Potassium [Cozaar] 12.5 mg PO DAILY #90 tab 06/07/19 Metoprolol Tartrate [Lopressor (beta dre)] 12.5 mg PO BID #90 tab 06/07/19 The following prescriptions were given: Aspirin [Aspirin, Baby] 81 mg PO DAILY@0800 #90 tab.chew [facility] [place] Losartan Potassium [Cozaar] 12.5 mg PO DAILY #90 tab Transmission Status: Pending to [place], [place] Atorvastatin Calcium [Lipitor] 80 mg PO QHS #90 tab Transmission Status: Pending to [place], [place] Metoprolol Tartrate [Lopressor (beta dre)] 12.5 mg PO BID #90 tab Transmission Status: Pending to [place], [place] Clopidogrel Bisulfate [Plavix] 75 mg PO DAILY #90 tab Transmission Status: Pending to [facility], [place] Orders to be completed after discharge: Phase II, Outpatient Cardiac Rehab Location: None Selected Primary Care Physician: Thalia Jackson MD [Primary Care Provider] - Please follow up with your Primary Care Physician in: 1-2 weeks. Test Results: Test results from this visit will be discussed in further detail at your follow-up appointment, if applicable. Please Follow Up With: Abisai Kowalski MD When: 2-4 weeks.
[2019-06-07 09:30] VITALS: BP 136/63; PULSE 97; RESP 16; TEMP 36.8; O2SAT 97
[2019-06-07 09:40] VITALS: PULSE 97
[2019-06-07] MEDS: Clopidogrel Bisulfate 75 MG Tablet PO (09:40)
[2019-06-07] MEDS: Metoprolol Tartrate 25 MG Tablet 12.5 MG PO (09:40)
[2019-06-07] MEDS: Aspirin 81 MG TAB.CHEW PO (09:40)
[2019-06-07] MEDS: Losartan Potassium 25 MG Tablet 12.5 MG PO (09:40)
--- NOTE | 2019-06-07 10:00 | EKG12_ITS ---
Test Reason : AM EKG Blood Pressure : / mmHG Vent. Rate : 060 BPM Atrial Rate : 060 BPM P-R Int : 154 ms QRS Dur : 072 ms QT Int : 382 ms P-R-T Axes : 048 069 038 degrees QTc Int : 382 ms Normal sinus rhythm Normal ECG When compared with ECG of 06-JUN-2019 05:30, MANUAL COMPARISON REQUIRED, DATA IS UNCONFIRMED Confirmed by SANGEETA GLOVER, XAVIER ([id number]), desk editor SHA GE ([id number]) on 06/15/2019 12:58:56 PM Referred By: DENNIS Confirmed By:CORRINE RUTHERFORD MD
--- NOTE | 2019-06-07 10:39 | PCM.PN.CARD ---
Subjectve: Patient doing very well this morning, no 24-hour events. Telemetry showed sinus tachycardia without evidence of arrhythmias. Groin is clean/dry/intact, no thrills, bruits or hematoma. Hemoglobin and creatinine within nominal limits. Objective: Vital Signs Temp Pulse Resp BP Pulse Ox 98.3 F 97 16 136/63 H 97 06/07/19 09:30 06/07/19 09:40 06/07/19 09:30 06/07/19 09:30 06/07/19 09:30 Oxygen Flow Rate (L/min) 3 Oxygen Delivery Method Room Air Weight: 206 lb Body Mass Index (BMI) 39.0 Intake and Output for Last 24 Hours 06/05/19 06/06/19 06/07/19 23:59 23:59 23:59 Intake Total 1336.80 / 1576.80 490 / 490 Output Total 250 / 250 Balance 1336.80 / 1326.80 240 / 240 General: Awake, Alert, Oriented x 3 HEENT: PERRL, EOMI, Sclera Non Icteric Neck: Supple, Good ROM, No Lymph Node Enlargement Lungs: Clear to auscultation Cardiovascular: Regular Rhythm, Normal S1, Normal S2, No Murmurs, No Rubs, No Gallops Vascular: No Carotid Bruits, Normal Femoral Pulses, Normal Radial Pulses, Normal Dorsalis Pedal Pulse, Normal Posterior Tibial Pulses Abdomen: Bowel Sounds Present, Soft, Non Tender, No HSM, No Organomegaly Extremities: No Cyanosis, No Clubbing, No edema Neurological: No Focal Motor or Sensory Deficit 06/07/19 06:05: WBC 12.0 H, RBC 4.98, Hgb 14.4, Hct 44.0, MCV 88.4, MCH 28.9, MCHC 32.7, Plt Count 233, MPV 12.2 H, Immature Gran % (Auto) 0.400, Neut % (Auto) 56.8, Lymph % (Auto) 34.3, [place] % (Auto) 7.4, Eos % (Auto) 0.3, Baso % (Auto) 0.8, Absolute Neuts (auto) 6.8, Nucleated RBC % 0 06/07/19 06:05: Sodium 136, Potassium 4.1, Chloride 107, Carbon Dioxide 25.0, Anion Gap 4 L, BUN 17, Creatinine 0.91, Est GFR (MDRD) Af Amer 91, Est GFR (MDRD) Non-Af 75, BUN/Creatinine Ratio 18.6, Glucose 82, Calcium 8.1 L Rhythm: EKG: ECHO: Stress Test: Cardiac Cath: PCI: CT Surgery: Holter monitor: EPS: PPM: CXR: Chest CT Scan: Medical Necessity - Tobacco Use Smoking Status: Current every day smoker Tobacco Use: Chew Assessment/Plan 1. Coronary artery disease: The patient presented with unstable angina non-ST elevation myocardial infarction, requiring urgent left heart catheterization and drug-eluting stent to the superior branch of an obtuse marginal #1 with an excellent result. Her right groin is clean/dry/intact and she has had no further chest pain or anginal symptoms since that time. I recommend the patient continue baby aspirin, Plavix, losartan and metoprolol. Patient will follow up with Dr. Kowalski going forward to be arranged for cardiac rehab in 2 to 3 weeks time. 2. Hyperlipidemia: Given her known coronary disease she requires aggressive LDL reduction. Continue Lipitor therapy and repeat lipid profile in 6 weeks time. 3. Patient may be discharged home and follow-up with Dr. Delong. Thank you very much for the opportunity to participate in the cardiac care of your patient. Code Visit Inpatient E&M: 65761 Subs Hosp L2
--- NOTE | 2019-06-07 11:51 | DS.PCM_ITS ---
Discharge Date and Diagnosis Date of Admission: 06/05/19 Date of Discharge: 06/07/19 - Primary Discharge Diagnosis #1 acute non-ST relation [place], status post PTCA/PRADIP to mid superior branch of the obtuse marginal artery. #2 reactive leukocytosis. - Secondary Discharge Diagnosis Chronic Problems (Last Updated 06/05/19 @ 14:09 by Debo Rasmussen) Atherosclerotic heart disease of [place] coronary artery without angina pectoris (Chronic) Tobacco abuse (Chronic) Hospital Course and Treatment Imaging Results: Clinical Impression(s) from Imaging Studies Chest X-Ray 06/05/19 00:00 IMPRESSION: Normal. at 0020 Reported and signed by: Julius Bolden MD Electronically Signed: Julius Bolden MD at 0:19 EST Tel , Service support , Chest CTA 06/05/19 00:56 IMPRESSION: No pulmonary embolism, aortic aneurysm, or aortic dissection. Individualized dose optimization techniques were used for this CT. at 0205 Reported and signed by: Julius Bolden MD Electronically Signed: Julius Bolden MD at 2:04 EST Tel , Service support , Dr. Kowalski/Dr. Delong, cardiology. Operations: None Procedures: 2-D Echocardiogram, Cardiac catheterization, EKG Summary of Care Provided: Patient seen and examined on the day of discharge and appeared to be stable to be discharged home. She denies any more chest pain or shortness of breath. Denied dizziness, lightheadedness, nausea or vomiting. Her vital signs have been stable. The patient is a 34 year old F patient presented to the emergency room because of chest pain and she was found to have elevated troponin without evidence of acute ischemic changes on EKG which is consistent with acute non-ST relation [place]. Chest x-ray showed no acute findings. CTA chest showed no PE or dissection. She underwent cardiac catheterization and she was found to have 85% stenosis of the mid superior branch of the obtuse marginal artery, status post PTCA/PRADIP. Patient was treated with aspirin, Plavix, statins, losartan and metoprolol. Routine blood work was remarkable for leukocytosis which was reactive secondary to acute illness and stress. There was no evidence of infection. Had 2D echocardiogram revealed segmental dysfunction with preserved ejection fraction of 65%, revealed mitral insufficiency, trivial tricuspid insufficiency, no evidence of diastolic dysfunction. After placement of the stent, patient did very well and she remained asymptomatic, no more chest pain. After started on metoprolol 25 mg p.o. twice daily, she became bradycardic but with no symptoms. Metoprolol was decreased down to 12.5 mg p.o. twice daily. Patient discharged home in a stable medical condition, discharged on aspirin, statins, Plavix, losartan and metoprolol, plan to follow-up with cardiology in 2 to 4 weeks and recommended follow-up with PCP in 1 to 2 weeks. - Physical Exam Vitals/I&O's: Vital Signs Temp Pulse Resp BP Pulse Ox 98.3 F 97 16 136/63 H 97 06/07/19 09:30 06/07/19 09:40 06/07/19 09:30 06/07/19 09:30 06/07/19 09:30 Oxygen Flow Rate (L/min) 3 Oxygen Delivery Method Room Air Weight: 206 lb Body Mass Index (BMI) 39.0 Intake and Output for Last 24 Hours 06/05/19 06/06/19 06/07/19 23:59 23:59 23:59 Intake Total 1336.80 / 1576.80 490 / 490 Output Total 250 / 250 Balance 1336.80 / 1326.80 240 / 240 General: Alert, Oriented x3, Cooperative, No apparent distress HEENT: Atraumatic, PERRLA, EOMI, Normocephalic Oral: Moist Mucosa, No Gingival or Mucosal Lesions/ Ulcerations Neck: Supple, No JVD, Negative Carotid Bruits, Trachea Midline, Thyroid Normal Size and Texture Lungs: Clear to auscultation, Normal air movement, No rhonchi, No wheeze, No rales Cardiovascular: Regular rate, Regular Rhythm, Normal S1, Normal S2, PMI Normal Abdomen: Bowel Sounds Present, Soft, Non Tender, Non-Distended, No Hepato- splenomegaly, Obese Extremities: No clubbing, No cyanosis, No edema Skin: No rashes, No breakdown Lymphatic: No Cervical, Supraclavicular, or Inguinal Adenopathy Neurological: Cranial nerves II-XII grossly intact, Neuro grossly intact Psych/Mental Status: Normal Affect, Appropriate Laboratory Results 06/06/19 16:18: POC Glucose 101 06/07/19 06:05: WBC 12.0 H, RBC 4.98, Hgb 14.4, Hct 44.0, MCV 88.4, MCH 28.9, MCHC 32.7, RDW Std Deviation 42.8, RDW Coeff of Precious 13.2, Plt Count 233, MPV 12.2 H, Immature Gran % (Auto) 0.400, Neut % (Auto) 56.8, Lymph % (Auto) 34.3, [place] % (Auto) 7.4, Eos % (Auto) 0.3, Baso % (Auto) 0.8, Absolute Neuts (auto) 6.8, Absolute Lymphs (auto) 4.10, Nucleated RBC % 0 06/07/19 06:05: Sodium 136, Potassium 4.1, Chloride 107, Carbon Dioxide 25.0, Anion Gap 4 L, BUN 17, Creatinine 0.91, Estim Creat Clear Calc 65.73, Est GFR (MDRD) Af Amer 91, Est GFR (MDRD) Non-Af 75, BUN/Creatinine Ratio 18.6, Glucose 82, Calcium 8.1 L Discharge Activity: Return to Normal Activity Weight Bearing Status: Full weight bearing Call your doctor if you observe: Fever of 101 or Higher, Shortness of breath, Dizziness, Fainting spells, Chest pain, Increased palpitations (irregular heartbeat), Uncontrolled pain Home Medications: Medications to take at Discharge Norgestimate-Ethinyl Estradiol [Tri-Sprintec Tablet] 1 each PO DAILY 07/23/14 Escitalopram Oxalate [Lexapro] 10 mg PO DAILY 06/05/19 Aspirin [Aspirin, Baby] 81 mg PO DAILY@0800 #90 tab.chew 06/07/19 Atorvastatin Calcium [Lipitor] 80 mg PO QHS #90 tab 06/07/19 Clopidogrel Bisulfate [Plavix] 75 mg PO DAILY #90 tab 06/07/19 Losartan Potassium [Cozaar] 12.5 mg PO DAILY #90 tab 06/07/19 Metoprolol Tartrate [Lopressor (beta leo)] 12.5 mg PO BID #90 tab 06/07/19 Following Prescrptions Were Given to Patient: Aspirin [Aspirin, Baby] 81 mg PO DAILY@0800 #90 tab.chew Transmission Status: Received by [facility] Losartan Potassium [Cozaar] 12.5 mg PO DAILY #90 tab Transmission Status: Received by [facility] Atorvastatin Calcium [Lipitor] 80 mg PO QHS #90 tab Transmission Status: Received by [facility] Metoprolol Tartrate [Lopressor (beta loe)] 12.5 mg PO BID #90 tab Transmission Status: Received by [facility] Clopidogrel Bisulfate [Plavix] 75 mg PO DAILY #90 tab Transmission Status: Received by [facility] Other Amb Orders: Phase II, Outpatient Cardiac Rehab Location: None Selected Primary Care Physician: Thalia Jackson MD [Primary Care Provider] - Please follow up with your Primary Care Physician in: 1-2 weeks. Please Follow Up With: Abisai Kowalski MD When: 2-4 weeks. Patient Instructions: Coronary Stents, Heart Attack Disposition: Home Minutes spent on discharge:: 32 Patient Condition:: Stable Medical Necessity - Tobacco Use Smoking Status: Current every day smoker Tobacco Use: Chew Meaningful Use Info Meaningful Use Diagnoses (Choose all that apply): AMI - AMI Aspirin given w/in 24hrs of arrival?: Yes ASA at discharge?: Yes Statins at discharge?: Yes Nate/ARB at discharge?: Yes Beta Leo at discharge?: Yes Done w/ Acute [place] measure.: Yes Documented LVEF (%): 65 Code Visit Inpatient E&M: 49542 Disch Hosp
== END 2019-06-07 11:26 | disposition home or self-care (01) | DRG 247 ==
LOC: ED 06-05 02:35 → PCU 06-05 03:23 → ICU 06-05 13:51 → PCU 06-06 15:14
PROVIDERS: Internal Medicine Cardiovascular Disease; Admitting Provider Hospitalist; Emergency Provider Emergency Medicine; Family Provider Student in an Organized Health Care Education/Training Program; PCP Student in an Organized Health Care Education/Training Program; Visit Provider Hospitalist
DX: I21.4 Non-ST elevation (NSTEMI) myocardial infarction (principal); I25.10 Atherosclerotic heart disease of native coronary artery without angina pectoris; Z72.0 Tobacco use; F41.9 Anxiety disorder, unspecified
CPT/HCPCS: 36415; 71046; 71275; 80048; 80053; 80061; 82962; 84484; 84703; 85025; 85027; 85347; 85730; 92928; 93005; 93306; 93458; 99152; 99153; 99285; C1760; J7030; J7040; Q9957; Q9967; A4216; C1725; C1769; C1874; C1887; C1894; C8929; C9600; J2405

== ENCOUNTER → 2019-06-26 08:27 | Outpatient (CLI) | payer BC, SELFPAY ==
[2019-06-05 03:54] VITALS: BMI 39.0
[2019-06-05 14:59] VITALS: BMI 38.9
--- NOTE | 2019-07-03 12:52 | PCM.CR.HP2 ---
CR - History & Physical - General Arrival date:: 07/03/19 Arrival time:: 12:53 Date of Referral:: 06/05/19 Date of CR Evaluation:: 07/03/19 Referring Physician: Primary Diagnosis: Z95.5 PCI with stent - History of Present Cardiac Event Onset Date: Enter Onset Date of cardiac illnesses in Comment field below PTCA or coronary stenting:: Yes - 06/05/2019 Interventions with present event:: PCI with stent - Medications Home Medications: Ambulatory Orders Medication Instructions Recorded Norgestimate-Ethinyl Estradiol 1 ea PO DAILY 07/23/14 [Tri-Sprintec Tablet] Escitalopram Oxalate [Lexapro] 10 mg PO DAILY 06/05/19 Aspirin [Aspirin, Baby] 81 mg PO DAILY@0800 #90 tab.chew 06/07/19 Losartan Potassium [Cozaar] 12.5 mg PO DAILY #90 tab 06/07/19 atorvastatin 80 mg tablet 80 mg PO QHS #90 tab 06/26/19 clopidogrel 75 mg tablet 75 mg PO DAILY #90 tab 06/26/19 metoprolol tartrate 25 mg tablet 12.5 mg PO BID #90 tab 06/26/19 - Allergies Allergies/Adverse Reactions: Allergies Iodinated Contrast Media [CONTRASTS] Adverse Reaction (Verified 06/26/19 13:24) Itching - Sleep Disorder Evaluation Hx of Sleep Apnea: No Do you snore loudly (louder than talking or can be heard through closed doors)?: Yes Do you often feel tired/ fatigued/ sleepy during daytime?: Yes Has anyone observed you stop breathing during sleep?: No History of Hypertension (for STOP score): Yes - pt is scheduled for sleep study STOP Results: Positive Advanced Directives - Advanced Directives Power of Rubber Stamp Maker: No Living Will: No Advance Directives Information Provided: No Advance Directives on File: No DNR Order?:: No Past Medical History - Past Medical Illness Medical History: Past Medical History (Last Updated 06/26/19 @ 13:29 by Loly Blanco) Atherosclerotic heart disease of [place] coronary artery without angina pectoris (Chronic) I25.10 Chewing tobacco nicotine dependence (Chronic) F17.220 Arthritis M19.90 - Past Surgical History Surgical History: Past Surgical History (Last Reviewed 06/26/19 @ 13:17 by Loly Blanco) S/P coronary artery stent placement (Acute) Onset Date: 06/05/19 Z95.5 Successful PTCA/PRADIP mid superior branch of OM#1 with a 2.25 x 20 Promus Synergy at 9 marilu; 85%-->0%, no dissection 06/05/19 Surgical History: no surgical history Social History - Smoking History Smoking Status: Never smoker - pt states she was not a smoker Hx Tobacco Use: Yes - chewing tobacco - Alcohol Use Alcohol Usage: No - Occupation Occupation (List type of work in comments):: Employed Hours worked per day:: 9 Returned to work on:: 06/15/19 - Hobbies, Recreation, Social Activities Hobbies: Farm Recreational Activities: I am able to engage in all my recreational activities Social Environment - Status Marital Status: Single - Current Living Arrangements Living Environment:: Alone - Children How many children do you have?: 0 - Safety Do you feel safe in your surroundings?: Yes - Assistance Do you need any assistance at home?: none Review of Systems - Review of Systems Hints: Right click = Denies (Slash). Left click = Reports ([place]) Review of Present Symptoms: Reports: Angina - mild CP 04/01/20, Fatigue, Appetite - Normal, Appetite - Special Diet. Denies: Shortness of Breath at Rest, Shortness of Breath with Exertion, PVD, Operative Discomfort, Wound Healing, Dizziness/Lightheadedness, Heart Arrhythmia/Irregularities, Sleep - Normal, Sexual Changes - Pain Is Patient Pain Free?: Yes Risk Factor Assessment - Chief Complaint Chief Complaint: CP - Vital Signs Pulse Ox: 97 - Pulse Pulse Rate: 97 Pulse Rhythm: Regular - Hypertension Blood Pressure Sitting - Right Arm: 100/70 - Stress Stress: Work-related - Blood Cholesterol/Lipids Total Cholesterol (mg/dL) Goal = less than 200 mg/dL: 150 HDL Cholesterol (mg/dL) Goal = less than 40 mg/dL: 65 LDL Cholesterol (mg/dL) Goal = less than 70 mg/dL: 92 Triglycerides (mg/dL) Goal = less than 150 mg/dL: 93 - Diabetes Nutrition Referral for Diabetes: No - Obesity Height: 1.55 m Weight:: 93.44 kg Weight in Pounds: 206.0 lbs Body Mass Index (BMI): 38.9 Nutritional Referral for Obesity: Yes - Physical Inactivity Physical Inactivity: None - Risk Stratification Risk Guidelines: Moderate Risk: Risk Factor for Dyslipidemia, Risk Factor for Diabetes, Risk Factor for Hypertension, Risk Factor for Sedentary Lifestyle, Risk Factor for Depression, Highest Risk: Risk Factor for Smoking, Risk Factor for Obesity - For Smoking Smoking Risk Guidelines: Smoking Low Risk: None or quit greater than 6 months ago. Smoking Moderate Risk: Smoker or quit 6 months or less ago. Smoking High Risk: Smoker - For Dyslipidemia Dyslipidemia Risk Guidelines: Low Risk: Moderate Risk: High Risk: 15-25% fat 25.1-29% fat >/= 30% fat. <7% sat fat 7-9% sat fat >9% sat fat. <150 mg chol 150-299 mg chol >/= 300 mg chol. LDL <100 LDL 100-129 LDL >/= 130. Chol/HDL ratio <5.0 Chol/HDL ratio 5.0-6.0 Chol/HDL ratio >6.0. Triglycerides <100 Triglycerides 100-149 Triglycerides >/= 150 - For Diabetes Mellitus Diabetes Risk Guidelines: Diabetes Low Risk: HgA1c <6.5% and/or FBG <120. Diabetes Moderate Risk: HgA1c 6.6-7.9% and/or FBG 120-180. Diabetes High Risk: HgA1c >/= 8% and/or FBG >180 - For Obesity/Overweight Obesity/Overweight Risk Guidelines: Obesity Low Risk: BMI <25.0. Obesity Moderate Risk: BMI 25-29.9. Obesity High Risk: BMI >/= 30.0 - For Hypertension Hypertension Risk Guidelines: Hypertension Low Risk: Systolic <120 and Diastolic <80. Hypertension Moderate Risk: Systolic 120-139 and Diastolic 80-89. Hypertension High Risk: Systolic >/= 140 and Diastolic >/= 90 - For Sedentary Lifestyle Sedentary Lifestyle Risk Guidelines: Sedentary Lifestyle Low Risk: >/= 1,500 kcal/week. Sedentary Lifestyle Moderate Risk: 700-1,499 kcal/week. Sedentary Lifestyle High Risk: < 700 kcal/week - For Depression Depression Risk Guidelines: Depression Low Risk: Not clinically depressed. Depression Moderate Risk: Mildly depressed. Depression High Risk: Clinically depressed Motivation - Motivation to Participate On a scale of 1 to 10, how prepared are you to commit to attending program?: 8 What do you see as barriers to successfully being able to complete the program?: none What do you see as the benefits of succesfully completing the program? In other words, what do you hope to get out of participating in the program?: improved health Are there issues you are dealing with that will interfere with completing the program?: none Do you have a spouse or signficant other, family or friends who will help support you to complete the program?: family
[2019-07-03 13:41] VITALS: BP 100/70; PULSE 97; O2SAT 97; BMI 38.9
--- NOTE | 2019-07-03 13:44 | PCM.CR.ITP ---
General Information - General Information Admitting Diagnosis: Z95.5 PCI with stent - Education/Goals Barriers to Learning: None Cardiac Rehabilitation Goals: 1. Maintain the individual as the primary focus of care. 2. To improve the patient's quality of life. 3. Identification of cardiac risk factors and provide cardiac risk factor management. 4. Enhance the psychosocial status of the patient. 5. Reconditioning enough to allow the patient to resume customary activities. 6. Control symptoms of cardiac disease Scale for measuring improvement of personal goals: Enter appropriate number in Comments. 2 = Unchanged. 3 = Slightly Better. 4 = Moderate Improvement. 5 = Met my Goal Personal Goals: Initial Assessment: Improve management of stress and emotions, Improve energy level, Participate in home exercise program, Get back to work, or to resume activities faster, Improve knowledge of cardiac disease, Improve muscle strength and endurance, Improve diet and eating habits (eat healthier), Control risk factors (learn risk factor modification) Exercise - Initial Assessment - Visit Date of Eval: 07/03/19 - initial eval - Stages of Change Stages of Change:: Contemplate - Physician Prescribed Exercise Modalities: Treadmill, Rower, Airdyne, NuStep, SciFit Frequency (days/week): 3x/week for 12 weeks [36 sessions] Duration (Minutes):: 30-45 Intensity: 60-80% age predicted maximum heart rate reserve METs - Progression: 0.5-1.0 MET, RPE 11-14 WEEK: 3.5 .5-1.0 per week Target Heart Rate:: 120-158 - Hypertension Do any of the following apply?: Yes Resting Blood Pressure:: 100/70 - Intervention Home Exercise/Activity Goal:: Moderate Exercise 30 min/day x 5 days/wk - Education Goals:: Warm-up, RPE WICHO Scale, S/S, Safe Exercise - Exercise Program Goals Exercise Program Goals: Aerobic Activity >30 min, B/P <130/80 Nutrition - Initial Assessment - Program Goals Nutrition Program Goals: LDL <70. Total Cholesterol <200. HDL >45. Triglycerides <150. HgbA1C <7%. BMI <25 - Visit Date of Assessment:: 07/03/19 - Stages of Change Stages of Change:: Action - Lipids Total Cholesterol (mg/dL) Goal = less than 200 mg/dL: 150 HDL Cholesterol (mg/dL) Goal = less than 45 mg/dL: 65 LDL Cholesterol (mg/dL) Goal = less than 70 mg/dL: 92 Triglycerides (mg/dL) Goal = less than 150 mg/dL: 93 - Diabetes Diabetes:: No - Weight Management Height: 1.55 m Weight:: 93.44 kg Total Score:: 3 - Intervention Referral to dietitian:: Yes Referral to Diabetic Clinic:: No Will attend diet classes:: Yes - Education Gave educational materials for:: Signs & symptoms of hypoglycemia, Signs & symptoms of hyperglycemia, Relate diabetes to coronary artery disease, Healthy eating Tobacco - Initial Assessment - Program Goals Tobacco Program Goals: Complete smoking cessation. Attend education classes. Improve Knowledge Test score - Stage of Change Stages of Change:: Contemplate - Learning Barriers Total Score:: 18 - Family Support Do you have family support?: Yes - Tobacco Use Tobacco Use: Non-smoker Do you use smokeless tobacco?: Yes - chews tocacco but does not smoke per pt. - Intervention Smoking Cessation Referral:: No Individual Education/Counseling:: No Education Schedule Given:: Yes - Education Attended class for:: Treating Heart Disease, How The Heart Works, What it means to have Heart Disease, How Coronary Artery Disease is Diagnosed, Heart Procedures, What Heart Medications Do, Risk Factors & Modifications, Living an Active Life, Nutrition, Emotions & Heart Disease, Stress Management & Relaxation, Sleep Disorders & Heart Disease Psychosocial - Initial Assess - Target Goals Target Goals: Assess presence or absence of depression. Using a valid screening tool, maximizes coping skills. Positive support system - Stages of Change Stages of Change:: Contemplate - Psychosocial Test Tool Used:: HANDS Depression Questionnaire Total Mood Screening Score:: 7 Self-Efficacy Score:: 4 - Intervention PS - Interventions: Yes Attend Stress Management Classes, Yes Uses Stress Management Skills, No Referral to Mental Health, No Referral to [facility] Case Management, No Referral to Physician - Education Gave educational materials for:: Coping techniques, Signs & symptoms of depression, Stress management, Relaxation techniques - Assistive Devices Assistive Devices:: None Fall Risk Assessed:: Yes Patient Health Questionnaire Initial Assessment 1. Little interest or pleasure in doing things: Several days 2. Feeling down, depressed, or hopeless: Not at all 3. Trouble falling or staying asleep, or sleeping too much: Nearly every day 4. Feeling tired or having little energy: Nearly every day 5. Poor appetite or overeating: Not at all 6. Feeling bad about yourself -- or that you are a failure or have let yourself or your family down: Not at all 7. Trouble concentrating on things, such as reading the newspaper or watching television: Not at all 8. Moving or speaking so slowly that other people could have noticed. Or the opposite - being so fidgety or restless that you have been moving around a lot more than usual: Not at all 9. Thoughts that you would be better off , or of hurting yourself in some way: Not at all How difficult have these problems made it for you to do your work, take care of things at home, or get along with other people?: Not difficult at all Total Score: 7 NIC-Q SV Test - Statements CAD is a disease of the arteries in the heart: False Examples of risk factors for heart disease: True Angina is chest pain or discomfort: True The benefits of resistance training include: True Eating more meat and dairy products: False Anti-platelet medications such as aspirin are important: True The only effective way to manage stress: False An exercise warm-up slowly increases heart rate: True Prepared, processed foods usually have high sodium: True Depression is common after a heart attack: I Don't Know The statin medications lower cholesterol: True To control blood pressure, lower the amount of sodium: True If someone gets chest discomfort during walking: False Transfats are partially hydrogenated vegetable oils: True Sleep apnea that is not treated increases the risk: I Don't Know To control cholesterol, one should become a vegetarian: False Someone knows if he/she is exercising at the right level: True Diabetes cannot be prevented with exercise & health eating: False Stress is a large risk for heart attack: True A diet that can help lower blood pressure is rich in: True - Total Score Total Correct Responses: 18 Self-Efficacy Initial Assessment We would like to know how confident you are in doing certain activities. Please select your confidence level for:: Select your confidence level for the following using the scale 1-10 where 1 is not at all confident and 10 is totally confident. Your score is the average of all 6 responses. Fatigue: How confident are you that you can keep the fatigue caused by your disease from interfering with the things you want to do? Select Number: 3 Physical Discomfort or Pain: How confident are you that you can keep the physical discomfort or pain of your disease from interfering with the things you want to do? Select Number: 3 Emotional Distress: How confident are you that you can keep the emotional distress caused by your disease from interfering with the things you want to do? Select Number: 5 Other Symptoms or Health Problems: How confident are you that you can keep other symptoms or health problems from interfering with the things you want to do? Select Number: 4 Different Tasks and Activities: How confident are you that you can do the different tasks and activities needed to manage your health condition so as to reduce your need to see a doctor? Select Number: 5 Medication: How confident are you that you can do things other than just taking medication to reduce how much your illness affects your everyday life? Select Number: 4 Total Score:: 4 Nutrition Survey - Nutrition Survey Instructions Scoring Instructions: Scoring is as follows: Yes = 1 points. No = 0 point. Patient score that is >/=12 is considered to be at potential nutritional risk and could benefit from a referral to a registered dietitian. - Nutrition Survey Initial Have you lost >10 lbs over the past 2 months without trying?: No Are you following a special diet at home for diabetes, low fat, or low salt?: Yes Are you interested in meeting with a dietitian for help understanding your diet?: Yes Do you eat less than 3 meals a day?: No Do you eat fatty meats (gandara, sausage, ribs, etc), fried foods, desserts, large amounts of salad dressings, margarine, butter, or cheese most days?: No Do you have food allergies? [Enter types in comment field]: No Do you eat in restaurants more than 3 times a week?: No Do you season food with salt, seasoning salt, or garlic salt?: Yes Do you used canned, boxed, frozen meals, or soups, seasoning packets?: No Total Score:: 3
[2019-07-03 13:59] VITALS: BP 100/70
== END ==
PROVIDERS: Family Provider Student in an Organized Health Care Education/Training Program; PCP Student in an Organized Health Care Education/Training Program; Referring Provider Internal Medicine Cardiovascular Disease; Visit Provider Internal Medicine Cardiovascular Disease
DX: Z95.5 Presence of coronary angioplasty implant and graft (principal)

== ENCOUNTER → 2019-07-10 19:57 | Outpatient (CLI) | payer BC, SELFPAY ==
[2019-06-05 14:59] VITALS: BMI 38.9
[2019-06-26 13:17] VITALS: BMI 39.2
== END ==
PROVIDERS: Family Provider Student in an Organized Health Care Education/Training Program; PCP Student in an Organized Health Care Education/Training Program; Referring Provider Internal Medicine Cardiovascular Disease; Visit Provider Internal Medicine Cardiovascular Disease
DX: G47.10 Hypersomnia, unspecified (principal); I25.10 Atherosclerotic heart disease of native coronary artery without angina pectoris
CPT/HCPCS: 95810

== ENCOUNTER 2019-07-24 15:15 | Outpatient (RCR) | payer BC, SELFPAY ==
[2019-06-05 14:59] VITALS: BMI 38.9
[2019-07-09 09:56] VITALS: BMI 39.2
== END 2019-07-24 23:59 ==
LOC: CR 15:15
PROVIDERS: Family Provider Student in an Organized Health Care Education/Training Program; PCP Student in an Organized Health Care Education/Training Program; Referring Provider Internal Medicine Cardiovascular Disease; Visit Provider Internal Medicine Cardiovascular Disease
DX: I25.10 Atherosclerotic heart disease of native coronary artery without angina pectoris (principal); Z95.5 Presence of coronary angioplasty implant and graft
CPT/HCPCS: 93798

== ENCOUNTER → 2019-08-07 08:31 | Outpatient (CLI) | payer BC, SELFPAY ==
[2019-07-24 07:47] VITALS: BMI 38.8
[2019-08-03 08:30] VITALS: BMI 38.3
--- NOTE | 2019-08-07 08:32 | STEWCON_ITS ---
Reason For Study: Chest Pain; CAD Stress Results Protocol: Yayo Protocol WITH DEFINITY Maximum Predicted HR: 186 bpm Target HR: 158 bpm % Maximum Predicted HR: 88 % DurationHeart Rate Stage (mm:ss) (bpm) BP Comment Baseline 78 100/58No Chest Pain; 5 ML Diluted Definity Yayo Protocol Stage I 3:00 123 110/60No Chest Pain Yayo Protocol Stage II 3:00 148 128/62No Chest Pain; Mild Dyspnea Yayo Protocol Stage III 1:00 164 / No Chest Pain; Moderate Dyspnea Recovery 98 102/64No Chest Pain Stress Duration: 7:00 mm:ss Maximum Stress HR: 164 bpm METS: 10 Baseline Echocardiogram Findings The estimated ejection fraction is 65 %. Stress Echo Wall motion Data Resting WM Intermediate WM Stress WM Resting Wall Motion Wall Motion Stress No regional wall motion No regional wall motion abnormalities noted. abnormalities noted. EKG Data The baseline ECG displays normal sinus rhythm. The patient exercised according to the regular Yayo protocol for a total duration of 7:00. The maximum heart rate attained was 169 beats per minute. This was 90% of maximum predicted heart rate. The patient exercised into stage 3 of the Yayo protocol. During stress, there were no ST or T wave changes noted to suggest ischemia. No arrhythmias noted. No clinical angina was noted. Interpretation Summary The estimated ejection fraction is 65 %. Normal, adequate, treadmill echocardiogram. Negative for ischemia by EKG and echocardiographic criteria. No anginal symptoms noted. No arrhythmias noted. Average exercise capacity for age. Appropriate blood pressure response to exercise. Final LVEF of 75%. Test terminated due to the attainment target heart rate and dyspnea. Decreased sensitivity due to poor echo windows requiring Definity agent. No complications. Patient tolerated procedure well. The study was technically difficult. Contrast injection was performed. Ordering Physician: Issac Delong Referring Physician: Thalia Jackson Performed By: Claudia Bo RDCS
[2019-08-07 11:18] LABS: AST(SGOT) 30 U/L (15-37); Alanine Aminotransfer ALT/SGPT 53 U/L (13-56); Albumin, Serum 3.8 g/dL (3.2-5.0); Alkaline Phosphatase 142 U/L (45-117); Bilirubin, Direct 0.21 mg/dL (0.00-0.30); Cholesterol 90 mg/dL (200); High Density Lipoprotein 50 mg/dL; Protein, Total 7.8 g/dL (6.4-8.2); Triglycerides 72 mg/dL; Very Low Density Lipoprotein 14 mg/dL (5-40)
== END ==
PROVIDERS: PCP Student in an Organized Health Care Education/Training Program; Referring Provider Internal Medicine Cardiovascular Disease; Visit Provider Internal Medicine Cardiovascular Disease
DX: R07.9 Chest pain, unspecified (principal); I25.118 Atherosclerotic heart disease of native coronary artery with other forms of angina pectoris; I25.2 Old myocardial infarction; Z95.5 Presence of coronary angioplasty implant and graft; M25.512 Pain in left shoulder
CPT/HCPCS: 36415; 80061; 80076; 93017; 93350; Q9957; A4216; C8928

== ENCOUNTER 2019-08-17 16:27 | Emergency (ER) | payer BC, SELFPAY ==
[2019-07-24 07:47] VITALS: BMI 38.8
[2019-08-03 08:30] VITALS: BMI 38.3
[2019-08-17 16:27] VITALS: BP 143/92; PULSE 77; RESP 16; TEMP 36.6; O2SAT 97; BMI 38.5
--- NOTE | 2019-08-17 16:38 | EKG12_ITS ---
Test Reason : CP Blood Pressure : / mmHG Vent. Rate : 074 BPM Atrial Rate : 074 BPM P-R Int : 166 ms QRS Dur : 074 ms QT Int : 356 ms P-R-T Axes : 055 041 050 degrees QTc Int : 395 ms Normal sinus rhythm Normal ECG Confirmed by DIA GLOVER, VANDANA ([id number]), supervising film or videotape editor LENNOX FLAHERTY ([id number]) on 08/19/2019 1:50:49 PM Referred By: TIERNEY/ROSALINA Confirmed By:VANDANA ALVARES MD
[2019-08-17] MEDS: Aspirin 81 MG TAB.CHEW 324 MG PO (16:45)
--- NOTE | 2019-08-17 16:48 | RAD_ITS ---
STUDY: X-RAY CHEST REASON FOR EXAM: Female, 34 years old. SENT FROM CARDIAC REHAB FOR CHEST PAIN, STENT PLACED IN DEC TECHNIQUE: Portable chest COMPARISON: 06/05/2019. FINDINGS: The lungs are clear and expanded. There is no demonstrated pleural abnormality. Normal size heart. Normal mediastinum and lima. Normal visualized pulmonary arteries. Normal visualized aortic arch and descending thoracic aorta. Normal visualized thoracic spine. Normal visualized ribs, clavicles, and shoulders. There is no demonstrated abnormality of the visualized soft tissue structures of the upper abdomen. RAD/Chest 1 View (Portable) IMPRESSION: Normal x-ray examination of the chest. Electronically Signed: Cristofer Vitale, at 17:09 EST Tel , Service support ,
--- NOTE | 2019-08-17 16:51 | ED.VISSUMM ---
- ER Visit Summary Date of Service: 08/17/19 Chief Complaint: Chest pain resolved History of Present Illness: The patient is a 34 F 3 of prior non-ST elevation AR with cardiac stent done in May. Patient states she is in cardiac rehab today and had some fleeting left-sided chest discomfort that lasted several minutes. Is since resolved. She denies any nausea, shortness of breath or diaphoresis associated with it. It was not similar to the pain she had when she was admitted to the hospital in May and had a heart cath and had a stent placed. She is not been having recent chest pain. After her heart cath she had some chest pain she had a stress echo which was negative. No history of DVT or PE. She is taking currently Plavix and aspirin. Physical Examination: Young female no acute distress vital signs stable afebrile. Initial blood pressure 143/92. Pulse ox 97% room air no signs hypoxia. H EENT exam normal. Neck is nontender JVD. Lungs clear to auscultation bilaterally. Heart regular rate and rhythm no murmur. Chest were nontender. Abdomen soft nontender normal bowel sounds no peritoneal signs. Extremities moves all 4. Calves nontender no edema no cords. Equal symmetrical radial pulses. Neurologically she is awake alert with no focal motor deficits. Test Results: EKG shows a normal sinus rhythm rate of 74 with no acute signs of AR or ischemia. Chest x-ray is normal. Normal cardiac silhouette mediastinum. Unchanged. CBC normal. Chemistries normal. Troponin normal. Repeat exam the patient is doing well. Discharged home. Emergency Department Course and Treatment: Patient with atypical nonreproducible chest pain. EKG is normal. It was fleeting pain lasting several minutes. She does have a cardiac history will undergo cardiac work-up. Clinically at this time I do not think this was cardiac chest pain. Treatment Plan: Follow-up with your doctors. Disposition: Discharge Impression: Acute chest pain uncertain etiology History of CAD with one cardiac stent This note was generated with [employer] dictation software. It may contain incorrect words, spelling, and punctuation that were not noted in review of the chart prior to signing ED Disposition - Plan for ED Patient: Referrals: Thalia Jackson MD [Primary Care Provider] -
[2019-08-17 17:02] LABS: Absolute Lymphocyte Count 2.39 X10^3/uL (0.83-4.51); Absolute Neutrophil Count 5.5 X10^3/uL (2.0-7.7); Basophil# 0.07 X10^3/uL; Basophil% 0.8 % (0-1); Eosinophil# 0.08 X10^3/uL; Eosinophils% 0.9 % (0-5); Hematocrit 41.4 % (37-47); Hemoglobin 13.7 g/dL (12.0-15.0); Lymphocyte # 2.39 X10^3/ul (4.0); Lymphocyte % 27.4 % (19-41); Mean Corp Hgb Conc 33.1 g/dL (32-36); Mean Corpuscular Hgb 29.7 pg (27.0-32.0); Mean Corpuscular Volume 89.8 fL (81-99); Mean Platelet Vol. 12.1 fl (6.2-12.0); Monocyte# 0.69 X10^3/uL; Monocyte% 7.9 % (0-10); NRBC Flagged by Analyzer 0 % (0-5); Neutrophil # 5.47 X10^3/uL (2.7-7.7); Neutrophil % 62.7 % (47-70); Platelet Count 270 K/mm3 (150-450); RBC Distribution Width SD 42.4 fl (35.1-43.9); Red Blood Count 4.61 M/mm3 (4.2-5.4); White Blood Count 8.7 K/mm3 (4.4-11.0)
[2019-08-17 17:18] LABS: Anion Gap 6 (5-15); BUN 11 mg/dL (7-18); BUN/Creat Ratio 11.5 RATIO (10-20); Calcium,Total 8.9 mg/dL (8.5-10.1); Chloride 108 mmol/L (98-107); Creatinine, Serum 0.96 mg/dL (0.55-1.02); EST Glomerular Filtration Rate 71 mL/min (>60); Est Glom Filt Rate - Afr Amer 86 mL/min (>60); Estimated Creatinine Clearance 62.31 ml/min; Glucose 53 mg/dL (74-106); Potassium 3.8 mmol/L (3.5-5.1); Sodium Level 141 mmol/L (136-145)
[2019-08-17 17:27] VITALS: BP 98/48; PULSE 80; RESP 18; O2SAT 100
[2019-08-17 18:00] VITALS: BP 94/56; PULSE 73; RESP 18; O2SAT 95
[2019-08-17 19:14] VITALS: BP 98/56; PULSE 70; RESP 19; O2SAT 98
--- NOTE | 2019-08-17 19:40 | ED.DEP ---
ED Disposition - Plan for ED Patient: Disposition: Home or Assisted Living Instructions: CHEST PAIN, Uncertain Cause Referrals: Thalia Jackson MD [Primary Care Provider] - 1-2 Days if not improving Additional Instructions: Your tests today were normal. Follow-up with your doctor. Return emergency department if worse
[2019-08-17 19:48] VITALS: BP 133/88; PULSE 79; RESP 20; O2SAT 99
--- NOTE | 2019-08-17 19:48 | ED.RN ---
REVIEWED D/C INSTRUCTIONS, FOLLOW UP CARE, AND S/S THAT WOULD WARRANT A RETURN TO THE ED WITH PT. PT VERBALIZED AN UNDERSTANDING AND DENIES FURTHER QUESTIONS FOR THIS RN. PT SKIN P/W/D, RESP EVEN AND UNLABORED, PT A&O X 3, NO DISTRESS NOTED. PT AMBULATED OUT OF ED, GAIT STEADY.
== END 2019-08-17 19:51 | disposition home or self-care (01) ==
PROVIDERS: Emergency Provider Emergency Medicine; PCP Student in an Organized Health Care Education/Training Program
DX: R07.9 Chest pain, unspecified (principal); I25.10 Atherosclerotic heart disease of native coronary artery without angina pectoris; I25.2 Old myocardial infarction; E11.9 Type 2 diabetes mellitus without complications; Z95.5 Presence of coronary angioplasty implant and graft; Z79.82 Long term (current) use of aspirin; Z79.02 Long term (current) use of antithrombotics/antiplatelets; Z79.84 Long term (current) use of oral hypoglycemic drugs; Z72.0 Tobacco use
CPT/HCPCS: 71045; 80048; 84484; 85025; 93005; 99285; A4216

== ENCOUNTER 2019-08-21 15:15 | Outpatient (RCR) | payer BC, SELFPAY ==
[2019-06-05 14:59] VITALS: BMI 38.9
[2019-07-24 07:47] VITALS: BMI 38.8
--- NOTE | 2019-08-03 08:18 | PCM.CR.ITP ---
Diagnosis - General Information Admitting Diagnosis: PCI W/CORONARY STENTING Secondary Diagnosis: STEMI Personal Learning Style:: Audio/Visual, Written Barriers to Learning: No Barriers Stage of change r/t lifestyle modifications:: Action Gave educational material for:: Treating Heart Disease, Emotions & Heart Disease, Stress Management & Relaxation, Sleep Disorders & Heart Disease, How The Heart Works, What it means to have Heart Disease, How Coronary Artery Disease is Diagnosed, Heart Procedures, What Heart Medications Do, Risk Factors & Modifications, Living an Active Life, Nutrition - Education/Goals Individual Counseling: Initial Assessment: Abnormal Cholesterol Levels, High Blood Pressure, Overweight/Obesity Cardiac Rehabilitation Goals: 1. Maintain the individual as the primary focus of care. 2. To improve the patient's quality of life. 3. Identification of cardiac risk factors and provide cardiac risk factor management. 4. Enhance the psychosocial status of the patient. 5. Reconditioning enough to allow the patient to resume customary activities. 6. Control symptoms of cardiac disease Personal Goals: Initial Assessment: Improve energy level, Participate in home exercise program, Get back to work, or to resume activities faster, Improve knowledge of cardiac disease, Improve muscle strength and endurance, Improve diet and eating habits (eat healthier), Control risk factors (learn risk factor modification) Scale for measuring improvement of personal goals: Enter appropriate number in Comments. 2 = Unchanged. 3 = Slightly Better. 4 = Moderate Improvement. 5 = Met my Goal - Diagnosis & Disease Process Outcomes/Goals: Pt IDs own risk factors & lifestyle modifications by Session 10, Verbalizes symptoms of angina & response by session 3., Pt independently manages Plan/Interventions: Assist Pt to ID & engage in lifestyle modification to reduce CVD risk, Instruct on individual risk factors, Review symptoms of angina & emergency actions, Review secondary diagnosis & identify educational needs. 30 day Reassessments:: Progressing Exercise - 30-day Assessment - Visit Date of Eval: 08/03/19 Session #:: 7 - PATIENT HAS MISSED TWO SCHEDULED SESSIONS DUE TO ILLNESS. - Physician Prescribed Exercise Modalities: Treadmill, Rower, Airdyne Frequency: 3x/week for 12 weeks [36 sessions] Intensity: 60-80% of age predicted maximum heart rate reserve Current METSs:: 4.5 Target Heart Rate:: 120-158 Current RPE:: 11-12 Maximum Excercise HR:: 161 Resting Blood Pressure: 98/64 Maximum Exercise Blood Pressure: 155/92 EKG Type: NSR TO SINUS TACHYCARDIA WITHOUT ECTOPY. - Outcomes & Goals Goals:: Verbalizes understanding of THR, RPE & goal METS by session 6, Documents in home exercise log/reports 30 min aerobic 5 day/wk by DC, Demonstrates accurate pulse taking by DC - Intervention & Plan Exercise Program Goals: Instruct on personal THR & RPE, Instruct on MET level & personal MET goal, Show patient to take own pulse /validate performance until accurate, Instruct on home exercise - 30-day Reassessments 30 day Reassessments:: Progressing - Physical Activity Home Exercise Physical Activity - Home Exercise: Safe Exercise, Warm-up, Self-monitoring, Cool-Down, Home Exercise > 30 min Daily, Sitting Time <3 hours/daily - Outcomes & Goals Outcomes/Goals: Demonstrates correct Warm-up/exercise Cool-Down (S3) if = 2.5 METs, Verbalizes symptoms of exercise intolerance by Session 3 (S3), Demonstrate safe equipment use (S3) & follows exercise prescrition (6) - Intervention & Plan Plan/Intervention: Instruct warm-up & cool-down if exercising at > 2 METs, Instruct on symptoms of exercise intolerance & actions to take, Instruct & monitor on saf, Assess intial functional capacity & safety risk - 30-day Reassessments 30 day Reassessments:: Progressing Nutrition - 30-Day Assessment - Program Goals Nutrition Program Goals: LDL <100 optimal. 100 - 129 Near optimal. 130 - 159 Borderline High. 160 - 189 High. Total Cholesterol <200 desirable. 200 - 239 Borderline High. >/= 240 High. HDL < 40 Low >/=60 High. Triglycerides <150 desirable. <199 optimal. VlDL 5 - 40. HgbA1C <7%. BMI <25 Patient has diagnosis of Hyperlipidemia (ICD E78)?: Yes - Visit Date of Assessment:: 08/03/19 Session #:: 7 - Cholesterol/Lipids Triglycerides (mg/dL): 93 Total Cholesterol (mg/dL): 176 LDL Cholesterol (mg/dL): 92 HDL Cholesterol (mg/dL): 65 Determine presence & major risk factors that modify LDL goal: Cigarette smoking, Hypertension or hypertensive medication - 93 Outcomes/Goals: Pt IDs own risk factors & lifestyle modifications by Session 10, Verbalizes symptoms of angina & response by session 3., Pt independently manages Intervention/Plan: Instruct on personal lipid levels & lipid goals/NCEP guidelines, Instruct on cholesterol Referral to dietitian:: Yes - MEDICAL NUTRITION THERAPY 30-day Reassessments:: Progressing - Diabetes (Other Core Measures) Diabetes Type: Not Applicable - Weight Mgt (Other Care) Not Applicable: No Height: 5 ft 1 in Weight:: 203 lb BMI: 38.3 Diagnosis Overweight/Obesity BMI> 30% ICD-10 E66: Yes Diagnosis High BMI/Morbid Obesity BMI> 35% ICD-10 Z68: Yes Outcomes/Goals: Pt sets, maintains & shows weight loss goal & trend during rehab Intervention/Plan: Instruct on ideal BMI & set weight loss goal w/patient, Assist pt to ID & incorporate diet changes for weight loss by S9, Refer to Structured Weight Loss program as appropriate, Encourage goal of using 250-300dcal per session for weight loss 30 day Reassessments:: Not Met - PATIENT HAS NOT LOST ANY WEIGHT IN THE PAST 30-DAYS - Healthy Eating Habits Will attend diet classes:: Yes Outcomes/Goals:: Consume diet rich in vegs,fruits,whole grain/high fiber,fish,lean meat, Limit sat/trans fats,cholesterol & added salts & sugars Intervention/Plan:: Assess current eating habits 30-day Reassessments:: Not Met - Education Gave educational materials for:: Healthy eating Medical- 30-Day Assessment - Visit Date of Eval: 08/03/19 - Medication Compliance Preventative Medication(s):: Aspirin, Clopidogrel/P2Y12 inhibit, Statin/lipid, Beta dre H/O mental health issues: depression, anxiety, or addiction?: No Doesn?t believe in the benefits of treatment?: No Believes medications are unnecessary or harmful?: No Has a concern about medication side effects?: No Expresses concern over the cost of medications?: No Outcomes/Goals: Verbalizes medications,desired effect & common side effects @ DC, Pt self-reports following medication regimen, Keeps card in wallet w/medications listed by DC Interventions/plans: Instruct on medication effects & side effects, Review medication list w/patient every two weeks, Instruct importance of taking meds as ordered & assist problem solving 30-day Reassessments:: Progressing - Tobacco Use Tobacco Use: Chew Do you use smokeless tobacco?: Yes Outcomes/Goals: Smoking cessation achieved or maintained by discharge, Identify aids/strategies for achieving smoking cessation by session 6 Interventions/plan: Instruct on effects of smoking & provide smoking cessation resource, Assist pt to set quit date & provide encouragement, Assist pt to develop strategies to achieve/maintain quit date, Assist pt w/nicotine replacement & medication for cessation success - Hypertension Resting Blood Pressure:: 98/64 [place] [employer] Hypertension Guidelines: [place] Heart [employer] Hypertension Guidelines. Normal BP Less than 120/80. Elevated BP 120/80. Hypertension Stage 1: BP 130-139/80-89. Hypertesnion Stage 2: BP 140 or higher/90 or higher. Hypertension Crisis: BP higher than 180/120 Peak Exercise Blood Pressure:: 155/92 Outcomes/Goals: Able to verbalize/achieve optimal blood pressure <130/80, Incorporates diet changes & exercise for blood pressure control by DC Interventions/plan: Instruct on optimal blood pressure, hypertension & medications, Instruct on effects of sodium, alcohol, stress, exercise &hypertension 30 day Reassessments:: Progressing - Tobacco Cessation Referral Smoking Cessation Referral:: Yes - PATIENT COULD BENEFIT FROM COUNSELING CONT USE OF CHEW/SMOKELESS TOBACCO Individual Education/Counseling:: Yes Education Schedule Given:: Yes Psychosocial - 30-Day Assess - VIsit Date of Eval: 08/03/19 Session #:: 7 Not Applicable: No History of previous Mental disease:: No - Target Goals Target Goals: Assess presence or absence of depression. Using a valid screening tool, maximizes coping skills. Positive support system - Psychosocial Test Tool Used:: Javier Stuart QOL Cardiac, PHQ-9 Questionnaire phq-9 Severity: Severity. 1-4 Minimal Depression. 5-9 Mild Depression. 10-14 Moderate Depression. 15-19 Moderately Sever Depression. 20-27 Severe Depression. Rule: - Referral to Behavioral Health PS - Interventions: Yes Attend Stress Management Classes, No Referral to Behavioral Health if PHQ-9 score >9:, No Referral to [facility], No Referral to Physician if PHQ-9 if score is 5-9: - Outcomes/Goals: See list Psychosocial Outcomes/Goals:: ID's personal stressors & 2 strategies to manage stress by discharge - Intervention/Plan: See List Interventions/Plan:: Assess stressors,coping strategies & signs of derpression on admission, Instruct/assist pt to develop coping & personal stress Mgt strategies, Instruct patient to recognize signs & symptoms of depression, Instruct patient to recog - 30-day Reassessments: 30 day Reassessments:: Progressing Patient Health Questionnaire 30-Day Re-eval Assessment 1. Little interest or pleasure in doing things: Several days 2. Feeling down, depressed, or hopeless: Not at all 3. Trouble falling or staying asleep, or sleeping too much: Nearly every day 4. Feeling tired or having little energy: Nearly every day 5. Poor appetite or overeating: Not at all 6. Feeling bad about yourself -- or that you are a failure or have let yourself or your family down: Not at all 7. Trouble concentrating on things, such as reading the newspaper or watching television: Not at all 8. Moving or speaking so slowly that other people could have noticed. Or the opposite - being so fidgety or restless that you have been moving around a lot more than usual: Not at all 9. Thoughts that you would be better off , or of hurting yourself in some way: Not at all How difficult have these problems made it for you to do your work, take care of things at home, or get along with other people?: Not difficult at all Total Score: 7 Self-Efficacy 30-Day Re-eval Assessment We would like to know how confident you are in doing certain activities. Please select your confidence level for:: Select your confidence level for the following using the scale 1-10 where 1 is not at all confident and 10 is totally confident. Your score is the average of all 6 responses. Fatigue: How confident are you that you can keep the fatigue caused by your disease from interfering with the things you want to do? Select Number: 4 Physical Discomfort or Pain: How confident are you that you can keep the physical discomfort or pain of your disease from interfering with the things you want to do? Select Number: 4 Emotional Distress: How confident are you that you can keep the emotional distress caused by your disease from interfering with the things you want to do? Select Number: 6 Other Symptoms or Health Problems: How confident are you that you can keep other symptoms or health problems from interfering with the things you want to do? Select Number: 5 Different Tasks and Activities: How confident are you that you can do the different tasks and activities needed to manage your health condition so as to reduce your need to see a doctor? Select Number: 6 Medication: How confident are you that you can do things other than just taking medication to reduce how much your illness affects your everyday life? Select Number: 7 Total Score:: 5
[2019-08-03 08:30] VITALS: BP 155/92; BP 98/64; BMI 38.3
== END 2019-08-22 23:59 ==
LOC: CR 15:15
PROVIDERS: Family Provider Student in an Organized Health Care Education/Training Program; PCP Student in an Organized Health Care Education/Training Program; Referring Provider Internal Medicine Cardiovascular Disease; Visit Provider Internal Medicine Cardiovascular Disease
DX: I25.10 Atherosclerotic heart disease of native coronary artery without angina pectoris (principal); Z95.5 Presence of coronary angioplasty implant and graft
CPT/HCPCS: 93798

== ENCOUNTER → 2019-08-21 20:42 | Outpatient (CLI) | payer BC, SELFPAY ==
[2019-06-05 14:59] VITALS: BMI 38.9
[2019-07-24 07:47] VITALS: BMI 38.8
[2019-08-03 08:30] VITALS: BMI 38.3
[2019-08-17 16:27] VITALS: BMI 38.5
== END ==
PROVIDERS: PCP Student in an Organized Health Care Education/Training Program; Referring Provider Nurse Practitioner Acute Care; Visit Provider Nurse Practitioner Acute Care
DX: G47.33 Obstructive sleep apnea (adult) (pediatric) (principal)
CPT/HCPCS: 95811

== ENCOUNTER → 2019-09-02 10:57 | Outpatient (CLI) | payer BC, SELFPAY ==
[2019-08-17 16:27] VITALS: BMI 38.5
[2019-08-31 08:12] VITALS: BMI 38.8
== END ==
PROVIDERS: PCP Student in an Organized Health Care Education/Training Program; Referring Provider Nurse Practitioner Acute Care; Visit Provider Nurse Practitioner Acute Care
DX: G47.33 Obstructive sleep apnea (adult) (pediatric) (principal)

== ENCOUNTER 2019-09-02 15:15 | Outpatient (RCR) | payer BC, SELFPAY ==
[2019-08-03 08:30] VITALS: BMI 38.3
[2019-08-23 00:50] VITALS: BP 155/92; BP 98/64
--- NOTE | 2019-08-31 08:02 | PCM.CR.ITP ---
Diagnosis - General Information Admitting Diagnosis: PCI w/coronary stenting Secondary Diagnosis: STEMI Personal Learning Style:: Audio/Visual, Written Barriers to Learning: No Barriers Stage of change r/t lifestyle modifications:: Action Gave educational material for:: Treating Heart Disease, Emotions & Heart Disease, Stress Management & Relaxation, Sleep Disorders & Heart Disease, How The Heart Works, What it means to have Heart Disease, How Coronary Artery Disease is Diagnosed, Heart Procedures, What Heart Medications Do, Risk Factors & Modifications, Living an Active Life, Nutrition - Education/Goals Individual Counseling: Initial Assessment: Abnormal Cholesterol Levels, High Blood Pressure, Overweight/Obesity Cardiac Rehabilitation Goals: 1. Maintain the individual as the primary focus of care. 2. To improve the patient's quality of life. 3. Identification of cardiac risk factors and provide cardiac risk factor management. 4. Enhance the psychosocial status of the patient. 5. Reconditioning enough to allow the patient to resume customary activities. 6. Control symptoms of cardiac disease Personal Goals: Initial Assessment: Improve energy level, Participate in home exercise program, Get back to work, or to resume activities faster, Improve knowledge of cardiac disease, Improve muscle strength and endurance, Improve diet and eating habits (eat healthier), Control risk factors (learn risk factor modification) Scale for measuring improvement of personal goals: Enter appropriate number in Comments. 2 = Unchanged. 3 = Slightly Better. 4 = Moderate Improvement. 5 = Met my Goal - Diagnosis & Disease Process Outcomes/Goals: Pt IDs own risk factors & lifestyle modifications by Session 10, Verbalizes symptoms of angina & response by session 3., Pt independently manages Plan/Interventions: Assist Pt to ID & engage in lifestyle modification to reduce CVD risk, Instruct on individual risk factors, Review symptoms of angina & emergency actions, Review secondary diagnosis & identify educational needs. 30 day Reassessments:: Progressing 30 day Reassessments:: Progressing - Safety Referral to Physical Therapy: No Referral to [facility] Case Management: No Fall Risk Assessed:: Yes Assistive Devices:: None Exercise - 60-day Assessment - Visit Date of Eval: 08/31/19 Session #:: 17 - Patient has been no call no show x two visits - Physician Prescribed Exercise Modalities: Treadmill, Rower, Airdyne, NuStep Frequency: 3x/week for 12 weeks [36 sessions] Intensity: 60-80% of age predicted maximum heart rate reserve Current METSs:: 4.5 no increase due to symptoms Target Heart Rate:: 120/158 Current RPE:: 12 Maximum Excercise HR:: 147 Resting Blood Pressure: 102/70 Maximum Exercise Blood Pressure: 138/60 EKG Type: Sinus Rhythm to sinus tachycardia wihtout ectopy. Current Physical Activity or Exercising minutes: working 8 hour days - Outcomes & Goals Goals:: Verbalizes understanding of THR, RPE & goal METS by session 6, Documents in home exercise log/reports 30 min aerobic 5 day/wk by DC, Demonstrates accurate pulse taking by DC - Intervention & Plan Exercise Program Goals: Instruct on personal THR & RPE, Instruct on MET level & personal MET goal, Show patient to take own pulse /validate performance until accurate, Instruct on home exercise - 30-day Reassessments 30 day Reassessments:: Progressing - Physical Activity Home Exercise Physical Activity - Home Exercise: Safe Exercise, Warm-up, Self-monitoring, Cool-Down, Home Exercise > 30 min Daily, Sitting Time <3 hours/daily - Outcomes & Goals Outcomes/Goals: Demonstrates correct Warm-up/exercise Cool-Down (S3) if = 2.5 METs, Verbalizes symptoms of exercise intolerance by Session 3 (S3), Demonstrate safe equipment use (S3) & follows exercise prescrition (6) - Intervention & Plan Plan/Intervention: Instruct warm-up & cool-down if exercising at > 2 METs, Instruct on symptoms of exercise intolerance & actions to take, Instruct & monitor on saf, Assess intial functional capacity & safety risk - 30-day Reassessments 30 day Reassessments:: Progressing Nutrition - 60-Day Assessment - Program Goals Nutrition Program Goals: LDL <100 optimal. 100 - 129 Near optimal. 130 - 159 Borderline High. 160 - 189 High. Total Cholesterol <200 desirable. 200 - 239 Borderline High. >/= 240 High. HDL < 40 Low >/=60 High. Triglycerides <150 desirable. <199 optimal. VlDL 5 - 40. HgbA1C <7%. BMI <25 Patient has diagnosis of Hyperlipidemia (ICD E78)?: Yes - Visit Date of Assessment:: 08/31/19 Session #:: 17 - Cholesterol/Lipids Triglycerides (mg/dL): 93 - 06/05/2019 Total Cholesterol (mg/dL): 176 LDL Cholesterol (mg/dL): 92 HDL Cholesterol (mg/dL): 65 Determine presence & major risk factors that modify LDL goal: Hypertension or hypertensive medication, Family history of premature CHD in Male < 55 years: female <65 yearsFa, Age men > 45 years; women >/= 55 years Outcomes/Goals: Pt IDs own risk factors & lifestyle modifications by Session 10, Verbalizes symptoms of angina & response by session 3., Pt independently manages Intervention/Plan: Advocate for lipid panel cholesterol medication if applicable, Instruct on personal lipid levels & lipid goals/NCEP guidelines, Instruct on cholesterol Referral to dietitian:: Yes 30-day Reassessments:: Progressing - Diabetes (Other Core Measures) Diabetes Type: Not Applicable - Weight Mgt (Other Care) Not Applicable: No Height: 5 ft 1 in Weight:: 205 lb 8 oz BMI: 38.8 Diagnosis Overweight/Obesity BMI> 30% ICD-10 E66: Yes Diagnosis High BMI/Morbid Obesity BMI> 35% ICD-10 Z68: Yes Outcomes/Goals: Pt sets, maintains & shows weight loss goal & trend during rehab Intervention/Plan: Instruct on ideal BMI & set weight loss goal w/patient, Assist pt to ID & incorporate diet changes for weight loss by S9, Refer to Structured Weight Loss program as appropriate, Encourage goal of using 250-300dcal per session for weight loss 30 day Reassessments:: Progressing - Healthy Eating Habits Will attend diet classes:: Yes Outcomes/Goals:: Consume diet rich in vegs,fruits,whole grain/high fiber,fish,lean meat, Limit sat/trans fats,cholesterol & added salts & sugars Intervention/Plan:: Assess current eating habits 30-day Reassessments:: Progressing - Education Gave educational materials for:: Healthy eating Medical- 60-Day Assessment - Visit Date of Eval: 08/31/19 Session #:: 17 - Medication Compliance Preventative Medication(s):: Aspirin, Clopidogrel/P2Y12 inhibit, Statin/lipid, Beta dre H/O mental health issues: depression, anxiety, or addiction?: No Doesn?t believe in the benefits of treatment?: No Believes medications are unnecessary or harmful?: No Has a concern about medication side effects?: No Expresses concern over the cost of medications?: No Outcomes/Goals: Verbalizes medications,desired effect & common side effects @ DC, Pt self-reports following medication regimen, Keeps card in wallet w/medications listed by DC Interventions/plans: Instruct on medication effects & side effects, Review medication list w/patient every two weeks, Instruct importance of taking meds as ordered & assist problem solving 30-day Reassessments:: Progressing - Tobacco Use Tobacco Use: Chew How long ago did you quit using tobacco products?: Less than 6 months ago Do you use smokeless tobacco?: Yes Outcomes/Goals: Smoking cessation achieved or maintained by discharge, Identify aids/strategies for achieving smoking cessation by session 6 Interventions/plan: Instruct on effects of smoking & provide smoking cessation resource, Assist pt to set quit date & provide encouragement, Assist pt to develop strategies to achieve/maintain quit date, Assist pt w/nicotine replacement & medication for cessation success 30-day Reassessments:: Progressing - Hypertension Hypertension Diagnosis:: Hypertension ICD-10 I10 Resting Blood Pressure:: 102/70 [place] [employer] Hypertension Guidelines: [place] [employer] Hypertension Guidelines. Normal BP Less than 120/80. Elevated BP 120/80. Hypertension Stage 1: BP 130-139/80-89. Hypertesnion Stage 2: BP 140 or higher/90 or higher. Hypertension Crisis: BP higher than 180/120 Peak Exercise Blood Pressure:: 138/60 Outcomes/Goals: Able to verbalize/achieve optimal blood pressure <130/80, Incorporates diet changes & exercise for blood pressure control by DC Interventions/plan: Instruct on optimal blood pressure, hypertension & medications, Instruct on effects of sodium, alcohol, stress, exercise &hypertension 30 day Reassessments:: Progressing - Tobacco Cessation Referral Smoking Cessation Referral:: Yes Individual Education/Counseling:: No Education Schedule Given:: Yes Psychosocial - 60-Day Assess - VIsit Date of Eval: 08/31/19 Session #:: 17 Not Applicable: Yes History of previous Mental disease:: No - Target Goals Target Goals: Assess presence or absence of depression. Using a valid screening tool, maximizes coping skills. Positive support system - Psychosocial Test Tool Used:: Javier Stuart QOL Cardiac, PHQ-9 Questionnaire phq-9 Severity: Severity. 1-4 Minimal Depression. 5-9 Mild Depression. 10-14 Moderate Depression. 15-19 Moderately Sever Depression. 20-27 Severe Depression. Rule: - Referral to Behavioral Health PS - Interventions: Yes Attend Stress Management Classes, No Referral to Behavioral Health if PHQ-9 score >9:, No Referral to [facility], No Referral to Physician if PHQ-9 if score is 5-9: - Outcomes/Goals: See list Psychosocial Outcomes/Goals:: ID's personal stressors & 2 strategies to manage stress by discharge - Intervention/Plan: See List Interventions/Plan:: Assess stressors,coping strategies & signs of derpression on admission, Instruct/assist pt to develop coping & personal stress Mgt strategies, Instruct patient to recognize signs & symptoms of depression, Instruct patient to recog - 30-day Reassessments: 30 day Reassessments:: Progressing Patient Health Questionnaire 60-Day Re-eval Assessment 1. Little interest or pleasure in doing things: Not at all 2. Feeling down, depressed, or hopeless: Not at all 3. Trouble falling or staying asleep, or sleeping too much: Several days 4. Feeling tired or having little energy: Several days 5. Poor appetite or overeating: Not at all 6. Feeling bad about yourself -- or that you are a failure or have let yourself or your family down: Not at all 7. Trouble concentrating on things, such as reading the newspaper or watching television: Not at all 8. Moving or speaking so slowly that other people could have noticed. Or the opposite - being so fidgety or restless that you have been moving around a lot more than usual: Not at all 9. Thoughts that you would be better off , or of hurting yourself in some way: Not at all How difficult have these problems made it for you to do your work, take care of things at home, or get along with other people?: Not difficult at all Total Score: 2 Self-Efficacy 60-Day Re-eval Assessment We would like to know how confident you are in doing certain activities. Please select your confidence level for:: Select your confidence level for the following using the scale 1-10 where 1 is not at all confident and 10 is totally confident. Your score is the average of all 6 responses. Fatigue: How confident are you that you can keep the fatigue caused by your disease from interfering with the things you want to do? Select Number: 6 Physical Discomfort or Pain: How confident are you that you can keep the physical discomfort or pain of your disease from interfering with the things you want to do? Select Number: 6 Emotional Distress: How confident are you that you can keep the emotional distress caused by your disease from interfering with the things you want to do? Select Number: 8 Other Symptoms or Health Problems: How confident are you that you can keep other symptoms or health problems from interfering with the things you want to do? Select Number: 7 Different Tasks and Activities: How confident are you that you can do the different tasks and activities needed to manage your health condition so as to reduce your need to see a doctor? Select Number: 8 Medication: How confident are you that you can do things other than just taking medication to reduce how much your illness affects your everyday life? Select Number: 9 Total Score:: 7
[2019-08-31 08:12] VITALS: BP 102/70; BP 138/60; BMI 38.8
== END 2019-09-22 23:59 ==
LOC: CR 15:15
PROVIDERS: Family Provider Student in an Organized Health Care Education/Training Program; PCP Student in an Organized Health Care Education/Training Program; Referring Provider Internal Medicine Cardiovascular Disease; Visit Provider Internal Medicine Cardiovascular Disease
DX: I25.10 Atherosclerotic heart disease of native coronary artery without angina pectoris (principal); Z95.5 Presence of coronary angioplasty implant and graft
CPT/HCPCS: 93798

== ENCOUNTER 2020-04-04 15:13 | Observation (INO) | payer BC, SELFPAY ==
[2019-08-31 08:12] VITALS: BMI 38.8
[2020-01-01 10:05] VITALS: BMI 41.1
[2020-04-04] VITALS (8 sets, daily range): BP systolic 110–111; BP diastolic 49–56; PULSE 69–89; RESP 12–18; TEMP 36.3–36.7; O2SAT 95–99; BMI 41.7; BMI 41.8
--- NOTE | 2020-04-04 15:07 | PCM.HP.STD ---
<Alis Mcdowell MACHINE BUILDER - Last Filed: 04/04/20 15:40> Problem List (1) History of myocardial infarction Status: Chronic (2) Hyperinsulinism Status: Chronic (3) Arthritis Status: Chronic (4) Restless legs syndrome (RLS) Status: Chronic Comment: PLMS index 14.2 (5) BEE (obstructive sleep apnea) Status: Chronic Comment: AHI 9.2 (6) S/P coronary artery stent placement Status: Chronic Comment: Successful PTCA/PRADIP mid superior branch of OM#1 with a 2.25 x 20 Promus Synergy at 9 marilu; 85%-->0%, no dissection 06/05/19 (7) Atherosclerotic heart disease of [place] coronary artery without angina pectoris Status: Chronic (8) Chewing tobacco nicotine dependence Status: Chronic History of Present Illness Date of Admission: 04/04/20 Chief Complaint: Chest pain. The patient is a 35 year old F who presents emergency room due to chest pain. 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 She reports associated pressure into her neck bilaterally, diaphoresis, lightheadedness and mild shortness of breath. Patient states her symptoms improved while sitting down and worsened with standing up. Symptoms went away after approximately 30 minutes without intervention. She denies further symptoms since that time. Patient had NSTEMI with stent placement May 2019. She denies recurrence of symptoms since that time. She reports she started on a medication for weight loss, Toni 2 weeks ago. Denies symptoms since taking this medication. She has a past medical history of CAD with history of PTCA/PRADIP, hypertension, hyperlipidemia, BEE, depression, anxiety, obesity, restless leg syndrome, chewing tobacco use. Past Medical History Past Medical History (Chronic Problems): Chronic Problems History of myocardial infarction (Chronic) Hyperinsulinism (Chronic) Arthritis (Chronic) Restless legs syndrome (RLS) (Chronic) PLMS index 14.2 BEE (obstructive sleep apnea) (Chronic) AHI 9.2 S/P coronary artery stent placement (Chronic 06/05/19) Successful PTCA/PRADIP mid superior branch of OM#1 with a 2.25 x 20 Promus Synergy at 9 marilu; 85%-->0%, no dissection 06/05/19 Atherosclerotic heart disease of [place] coronary artery without angina pectoris (Chronic) Chewing tobacco nicotine dependence (Chronic) Medical History: Medical History (Last Reviewed 01/01/20 @ 10:10 by Mounika Booth) History of myocardial infarction (Chronic) I25.2 Hyperinsulinism (Chronic) E16.1 Arthritis (Chronic) M19.90 Atherosclerotic heart disease of [place] coronary artery without angina pectoris (Chronic) I25.10 Chewing tobacco nicotine dependence (Chronic) F17.220 Allergies morphine Adverse Reaction (Unknown, Verified 01/01/20 10:07) Itching Iodinated Contrast Media [CONTRASTS] Adverse Reaction (Verified 01/01/20 10:07) Itching Home Medications: Ambulatory Orders Medication Instructions Recorded Escitalopram Oxalate [Lexapro] 10 mg PO QHS 06/05/19 clopidogrel 75 mg tablet 75 mg PO DAILY #90 tab 06/26/19 metformin 750 mg tablet,extended 750 mg PO BID 07/24/19 release 24 hr norethindrone (contraceptive) 0.35 0.35 mg PO QHS 07/24/19 mg tablet losartan 25 mg tablet 25 mg PO DAILY tab 01/01/20 Aspirin [Aspirin, Baby] 81 mg PO DAILY@0800 04/04/20 Atorvastatin Calcium [Lipitor] 80 mg PO QHS 04/04/20 Metoprolol Tartrate 12.5 mg PO BID 04/04/20 Orlistat [Toni] 60 mg PO TID 04/04/20 Ropinirole HCl 0.5 mg PO QHS 04/04/20 Surgical History: Surgical History (Last Reviewed 01/01/20 @ 10:10 by Mounika Booth) S/P coronary artery stent placement (Chronic) Onset Date: 06/05/19 Z95.5 Successful PTCA/PRADIP mid superior branch of OM#1 with a 2.25 x 20 Promus Synergy at 9 marilu; 85%-->0%, no dissection 06/05/19 Surgical History: - - Coronary stent placement Psychiatric History: Anxiety, Depression 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 Lives: Alone Smoking Status: Never smoker Tobacco Use: Chew Alcohol: None Drugs: None - *Family History Maternal Family History: Family History (Last Reviewed 04/04/20 @ 15:30 by Alis Mcdowell NP, MACHINE BUILDER-C) Father Diabetes Grandfather Presence of pancreatic duct stent History Items: Hypertension Paternal Family History: Family History (Last Reviewed 04/04/20 @ 15:30 by Ails Jeremias MACHINE BUILDER, MACHINE BUILDER-C) Father Diabetes Grandfather Presence of pancreatic duct stent History Items: Diabetes, High Cholesterol, Hypertension Review of Systems Constitutional: Denies: Chills, Fever, Weight Change HEENT: Denies: Head Aches, Sinus Congestion, Sinus Drainage Cardiovascular: Reports: Chest Pain, Light Headedness. Denies: Edema, Palpitations, Syncope Respiratory: Reports: - - Shortness of breath associated with episode of chest pain. Denies: Cough, Shortness of breath at rest, Sputum production Gastrointestinal: Denies: Abdominal Pain, Nausea, Vomiting Genitourinary: Denies: Dysuria Musculoskeletal: Denies: Joint Pain, Joint Tenderness Skin: Denies: Rash, Wounds Neurological: Denies: Numbness, Tingling, Focal weakness Psychiatric: Reports: Anxiety, Depression. Denies: Homicidal Ideations, Suicidal Ideations Hematologic/ Lymphatic: Denies: Easy Bruising, Easy Bleeding VTE Information - Inpt Only VTE Present on Admission: No VTE Mechan Device Prophylaxis: None VTE Pharm Prophylaxis ordered?: No Reason prophylaxis not ordered:: Treatment Not Indicated - Physical Exam Vitals/I&O's: Body Mass Index (BMI) 41.1 General: Alert, Oriented x3, Cooperative HEENT: Atraumatic, PERRLA, EOMI, Normocephalic Neck: Supple, No JVD, Negative Carotid Bruits Lungs: Clear to auscultation, Normal air movement Cardiovascular: Regular rate, No murmurs Abdomen: Bowel Sounds Present, Soft, Non Tender, Non-Distended, Obese Extremities: No clubbing, No cyanosis, No edema, Capillary Refill Less than 3 Seconds Skin: No rashes, No breakdown Musculoskeletal: No Tenderness to Palpation of Joints or Extremities Neurological: Cranial nerves II-XII grossly intact, Neuro grossly intact Psych/Mental Status: Normal Affect, Appropriate Assessment/Plan 1. Chest pain-rule out ACS. Initial troponin and EKG at [facility] normal. Trend enzymes. Cardiology consulted. Patient underwent stress echo July 2019 which demonstrated an EF of 65%, negative for ischemia. Continue aspirin, statin, plavix. D-dimer at outside facility negative. Chest x-ray unremarkable as well. 2. CAD, history of NSTEMI with PTCA/PRADIP to mid superior branch of the obtuse marginal artery 05/2019-continue aspirin, statin, Plavix, metoprolol, losartan. 3. Hypertension-stable, continue losartan and metoprolol. 4. Hyperlipidemia-continue statin. Fasting lipid panel in a.m. 5. BEE-continue home CPAP regimen. 6. Obesity-recently started on Toni for weight loss. Dietitian consult. 7. Prediabetes-hold metformin. Accu-Cheks with sliding scale insulin. Obtain hemoglobin A1c. 8. Depression/anxiety-continue escitalopram. 9. Restless leg syndrome-continue Requip. 10. Chewing tobacco use-encouraged cessation. DVT prophylaxis-not indicated, low risk This patient was seen by Alis Mcdowell NP-Mami under the supervision of Dr. Arevalo. <Sonia Arevalo E - Last Filed: 04/04/20 16:20> History of Present Illness The patient is a 35 year old F [] Past Medical History Medical History: Medical History (Last Reviewed 01/01/20 @ 10:10 by Mounika Booth) History of myocardial infarction (Chronic) I25.2 Hyperinsulinism (Chronic) E16.1 Arthritis (Chronic) M19.90 Atherosclerotic heart disease of [place] coronary artery without angina pectoris (Chronic) I25.10 Chewing tobacco nicotine dependence (Chronic) F17.220 Allergies Iodinated Contrast Media [CONTRASTS] Allergy (Verified 04/04/20 15:29) Itching of tongue and swelling of lips morphine Adverse Reaction (Unknown, Verified 01/01/20 10:07) Itching Surgical History: Surgical History (Last Reviewed 01/01/20 @ 10:10 by Mounika Booth) S/P coronary artery stent placement (Chronic) Onset Date: 06/05/19 Z95.5 Successful PTCA/PRADIP mid superior branch of OM#1 with a 2.25 x 20 Promus Synergy at 9 marilu; 85%-->0%, no dissection 06/05/19 - *Family History Maternal Family History: Family History (Last Reviewed 04/04/20 @ 15:30 by Alis Mcdowell MACHINE BUILDER, MACHINE BUILDER-C) Father Diabetes Grandfather Presence of pancreatic duct stent Paternal Family History: Family History (Last Reviewed 04/04/20 @ 15:30 by Alis Mcdowell NP, MACHINE BUILDER-C) Father Diabetes Grandfather Presence of pancreatic duct stent - Physical Exam Vitals/I&O's: Vital Signs Temp Pulse Resp BP Pulse Ox 98.1 F 73 16 110/49 L 99 04/04/20 15:33 04/04/20 15:51 04/04/20 15:33 04/04/20 15:33 04/04/20 15:33 Oxygen Delivery Method Room Air Weight: 221 lb Body Mass Index (BMI) 41.7 Current Medications Acetaminophen (Tylenol) 650 mg PO Q6H PRN PRN PRN Reason: Pain Score 1-10/Temp > 100.7 F Aspirin (Aspirin, Baby) 81 mg PO DAILY@0800 NISHA Atorvastatin Calcium (Lipitor) 80 mg PO QHS NISHA Clopidogrel Bisulfate (Plavix) 75 mg PO DAILY NISHA Escitalopram Oxalate (Lexapro) 10 mg PO QHS NISHA Insulin Human Lispro (Humalog Kwikpen (Bkc)) 0 unit SC ACHS NISHA; Protocol Losartan Potassium (Cozaar) 25 mg PO DAILY NISHA Metoprolol Tartrate (Lopressor (Beta Leo)) 12.5 mg PO BID NISHA Norethindrone (Claudia) 0.35 mg PO QHS NISHA Ondansetron HCl (Zofran) 4 mg IV Q8H PRN PRN PRN Reason: NAUSEA/VOMITING Pramipexole Dihydrochloride (Mirapex) 0.25 mg PO QHS NISHA Sodium Chloride () 10 - 40 ml IV UD PRN PRN Reason: SALINE FLUSH Zolpidem Tartrate (Ambien (Generic)) 5 mg PO QHS PRN PRN PRN Reason: INSOMNIA Assessment/Plan Hospitalist note: I am seeing this patient in conjunction with Alis Mcdowell. I independently seen and examined the patient. History and physical, laboratory data and imaging studies reviewed from the outside facility reviewed and I concur with the above admission and work-up plan. Patient was directly admitted from outside facility for chest pain for evaluation. 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 At this time, she is chest pain-free. At this time, her vital signs are stable. Routine blood work including CBC and BMP that was done at the outside facility reviewed and was unremarkable. EKG revealed normal sinus rhythm with evidence of acute stent changes. Troponin was negative. D-dimer was negative. She is being admitted for chest pain for evaluation. - Physical Exam General: Alert, Oriented x3, Cooperative, No apparent distress. HEENT: Atraumatic, PERRLA, EOMI. Neck: Supple, No JVD, Negative Carotid Bruits, Trachea Midline, Thyroid Normal. Lungs: Clear to auscultation, Normal air movement, No rhonchi, No wheeze, No rales. Cardiovascular: Regular rate, Regular Rhythm, Normal S1, Normal S2, PMI Normal. Abdomen: Bowel Sounds Present, Soft, Non Tender, Non-Distended, No Hepato-splenomegaly. Extremities: No clubbing, No cyanosis, No edema Skin: No rashes, No breakdown Neurological: Neuro grossly intact Vital Signs are stable. Assessment and plan: #1 chest pain: Initial troponin and EKG were unremarkable. D-dimer was negative. Chest x-ray was unremarkable. Plan: Admit to PCU observation, cardiac monitoring, serial cardiac enzymes, cardiology consult, continue aspirin, statins, Plavix, losartan metoprolol. #2 other chronic medical problems: Stable, continue current medications as above. This note was generated with [employer] dictation software. It may contain incorrect words, spelling, and punctuation that were not noted in checking the note before signing. OBSV E&M: [id number] Initial observation care L3
[2020-04-04 16:35] LABS: Bedside Glucose 75 mg/dL (70-110)
[2020-04-04 16:54] LABS: Hemoglobin A1c 5.4 % (3.8-5.6)
--- NOTE | 2020-04-04 17:53 | PCM.CONS.C ---
Problem List (1) Chest pain Status: Acute (2) CAD (coronary artery disease) Status: Acute Qualifiers: Coronary Disease-Associated Artery/Lesion type: [place] artery [place] vs. transplanted heart: [place] heart Associated angina: with unstable angina Qualified Code(s): I25.110 - Atherosclerotic heart disease of [place] coronary artery with unstable angina pectoris (3) S/P coronary artery stent placement Status: Chronic Comment: Successful PTCA/PRADIP mid superior branch of OM#1 with a 2.25 x 20 Promus Synergy at 9 marilu; 85%-->0%, no dissection 06/05/19 (4) BEE (obstructive sleep apnea) Status: Chronic Comment: AHI 9.2 (5) Chewing tobacco nicotine dependence Status: Chronic Reason for Consult Date of Consultation: 04/04/20 History of Present Illness: The patient is a 35 year old white female with a history of premature CAD status post previous LCx PCI who is referred for evaluation of chest discomfort concerning for unstable angina pectoris. She states that she presented to her local emergency department earlier today based upon the symptoms of chest discomfort, neck discomfort, diaphoresis, and near syncope. She was evaluated and found to have a negative troponin I level and an ECG that demonstrated sinus rhythm with no acute ECG changes. Based upon her young age, her history of premature CAD requiring previous PCI, she was subsequently transferred to [facility] for further evaluation and care. She states overall she feels better but not back to her normal. She noted her symptoms were similar to symptoms she had prior to her PCI procedure with the exception of not having the previous bilateral upper extremity paresthesia sensation. She notes otherwise she has been feeling well recently with no obvious fever, chills, night sweats, orthopnea, PND, peripheral pitting edema, or near syncope or syncope. She does not recall any other recent medical diagnosis nor does she recall any other type of physical trauma to her chest. At her local emergency department she also had a d-dimer level performed which was negative. [] Past Medical History Allergies/Adverse Reactions: Allergies Iodinated Contrast Media [CONTRASTS] Allergy (Verified 04/04/20 15:29) Itching of tongue and swelling of lips morphine Adverse Reaction (Unknown, Verified 01/01/20 10:07) Itching Home Medications: Ambulatory Orders Medication Instructions Recorded Escitalopram Oxalate [Lexapro] 10 mg PO QHS 06/05/19 clopidogrel 75 mg tablet 75 mg PO DAILY #90 tab 06/26/19 metformin 750 mg tablet,extended 750 mg PO BID 07/24/19 release 24 hr norethindrone (contraceptive) 0.35 0.35 mg PO QHS 07/24/19 mg tablet losartan 25 mg tablet 25 mg PO DAILY tab 01/01/20 Aspirin [Aspirin, Baby] 81 mg PO DAILY@0800 04/04/20 Atorvastatin Calcium [Lipitor] 80 mg PO QHS 04/04/20 Metoprolol Tartrate 12.5 mg PO BID 04/04/20 Orlistat [Toni] 60 mg PO TID 04/04/20 Ropinirole HCl 0.5 mg PO QHS 04/04/20 Past Medical History (Chronic Problems): Chronic Problems History of myocardial infarction (Chronic) Hyperinsulinism (Chronic) Arthritis (Chronic) Restless legs syndrome (RLS) (Chronic) PLMS index 14.2 BEE (obstructive sleep apnea) (Chronic) AHI 9.2 S/P coronary artery stent placement (Chronic 06/05/19) Successful PTCA/PRADIP mid superior branch of OM#1 with a 2.25 x 20 Promus Synergy at 9 marilu; 85%-->0%, no dissection 06/05/19 Atherosclerotic heart disease of [place] coronary artery without angina pectoris (Chronic) Chewing tobacco nicotine dependence (Chronic) Surgical History: - - Coronary stent placement Psychiatric History: Anxiety, Depression 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: No pertinent ADVANCED ANALYTICS ASSOCIATE history - *Family History Maternal Family History: Family History (Last Reviewed 04/04/20 @ 15:30 by Alis Mcdowell NP, TELLER-C) Father Diabetes Grandfather Presence of pancreatic duct stent History Items: Hypertension Paternal Family History: Family History (Last Reviewed 04/04/20 @ 15:30 by Alis Mcdowell NP, TELLER-C) Father Diabetes Grandfather Presence of pancreatic duct stent History Items: Diabetes, High Cholesterol, Hypertension Lives: Alone Smoking Status: Never smoker Tobacco Use: Chew Alcohol: None Drugs: None Review of Systems - Review of Systems General: Denies: Fever, Night Sweats, Fatigue Cardiovascular: Reports: Chest Discomfort. Denies: Shortness of Breath, Orthopnea, PND, Peripheral Edema, Palpitations, Lightheadedness, Dizziness, Near Syncope, Syncope Respiratory: Denies: Cough, Sputum Production, Hemoptysis Gastrointestinal: Denies: Hematemesis, Hematochezia, Melena Genitourinary: Denies: Dysuria, Hematuria Skin: Denies: Rash Subjectve: This is a 35-year-old white female who appears resting comfortably at the moment in no acute distress. Objective: Vital Signs Temp Pulse Resp BP Pulse Ox 98.1 F 73 16 110/49 L 99 04/04/20 15:33 04/04/20 15:51 04/04/20 15:33 04/04/20 15:33 04/04/20 15:33 Oxygen Delivery Method Room Air Weight: 221 lb Body Mass Index (BMI) 41.7 General: Awake, Alert, Oriented x 3, Cooperative, No Acute Distress, Obese HEENT: Atraumatic, Normocephalic, PERRL, EOMI, Sclera Non Icteric Neck: Supple, Good ROM, No JVD Lungs: Clear to auscultation Cardiovascular: Regular Rhythm, Normal S1, Normal S2 Vascular: No Carotid Bruits, Normal Radial Pulses Abdomen: Bowel Sounds Present, Soft, Non Tender Extremities: No Cyanosis, No Clubbing, No edema Neurological: No Focal Motor or Sensory Deficit 04/04/20 16:20: Hemoglobin A1c 5.4 04/04/20 16:20: Troponin I < 0.015 Rhythm: Sinus rhythm EKG: Sinus rhythm; no acute ECG changes ECHO: 06-05-19 Interpretation Summary The study was technically difficult. Contrast injection was performed. Segmental dysfunction with preserved ejection fraction (see wall motion). The estimated ejection fraction is 65 %. Trivial mitral valve insufficiency. Trivial tricuspid valve insufficiency. Mild focal aortic valve thickening. Trivial pulmonic valve insufficiency. Unable to estimate RV systolic pressure/pulmonary artery pressure due to technically difficult study. No evidence for diastolic dysfunction. Stress Test: 08-07-2019 Stress echocardiogram: Interpretation Summary The estimated ejection fraction is 65 %. Normal, adequate, treadmill echocardiogram. Negative for ischemia by EKG and echocardiographic criteria. No anginal symptoms noted. No arrhythmias noted. Average exercise capacity for age. Appropriate blood pressure response to exercise. Final LVEF of 75%. Test terminated due to the attainment target heart rate and dyspnea. Decreased sensitivity due to poor echo windows requiring Definity agent. No complications. Patient tolerated procedure well. The study was technically difficult. Contrast injection was performed. Cardiac Cath: 06-05-2019 CONCLUSIONS Elevated Left Ventricular End Diastolic Pressure Normal LV size, wall motion,and systolic function LVEF: by LV gram 65 % [place] Multivessel CAD RECOMMENDATIONS Risk factor modification Medical therapy Referred for immediate PCI DESCRIPTION OF PROCEDURE The patient arrived to the procedure lab. The risks and benefits of the procedure as well as a full description of our services here and current unavailability of surgical backup were fully explained to the patient and/or their significant other prior to the catheterization. The Timeout was completed, verifying the correct patient and procedure. The patient's procedural site was prepped and draped in the usual fashion. Local anesthetic was given subcutaneously to right groin region with Lidocaine 2%. Using a modified Seldinger technique, arterial access was obtained via the right femoral artery, a 4Fr sheath was inserted Left Coronary Artery selective angiography was performed in multiple views using a 4 Fr. JL5 catheter. Right Coronary Artery selective angiography was then performed in multiple views using a 4 Fr. 3DRC catheter. Left Ventriculography was performed in [place] projection using a 4 Fr. Pigtail catheter. LV to AO pullback pressures were then recorded.Contrast was injected through the sheath and the Right Iliac and Femoral artery were assessed for possible closure device.The arterial sheath was pulled and a Mynx closure device was deployed for hemostasis CORONARY ANGIOGRAPHY DOMINANCE: Right Dominant LEFT HEART ASSESSMENT Left Ventricular Ejection Fraction: by LV Gram 65 % Normal LV wall motion Elevated Left Ventricular End Diastolic Pressure LVEDP: 18 mmHg LEFT MAIN: Angiographically normal LEFT ANTERIOR DESCENDING ARTERY: MID LAD: possible intramyocardial bridge CIRCUMFLEX ARTERY: OM 1: Mid - bifurcating branch: long: diffuse: 90 % Stenosis RIGHT CORONARY ARTERY: Angiographically normal AORTIC ROOT: Angiographically normal PCI: 06-05-2019 CONCLUSIONS Successful PTCA/PRADIP mid superior branch of OM#1 with a 2.25 x 20 Promus Synergy at 9 marilu; 85%-->0%, no dissection. Assessment/Plan 1. Chest pain concerning for unstable angina This is a 35-year-old white female who is previously been diagnosed with premature CAD status post and LCx PTCA/PRADIP now presents for recurrent chest discomfort which she states is similar to her previous discomforts leading to her diagnosis with the exception of lack of upper extremity paresthesias with negative troponin enzymes and no obvious ECG changes and no obviously memory changes and no other obvious explanation for her symptoms at this time. At the moment she states she feels better but not quite back to her normal after her additional medical therapy with aspirin therapy. She is continuing her other medications without interruption. Her case was discussed with her. At the present time she will be monitored. She will continue medical therapy. She will be considered for repeat diagnostic cardiac catheterization based upon the aforementioned concerns. This procedure and risks have been discussed with her and she was agreeable to this approach. 2. [id number] post LCx PTCA/PRADIP Again the patient's been diagnosed with premature CAD and underwent and LCx PTCA/PRADIP as noted. She subsequently had a follow-up exercise tolerance test/imaging study which was unremarkable. She has now had recurrent chest discomfort. Based upon her history, her clinical course, noting that she has already had a post cardiac catheterization/post PCI noninvasive study such as an exercise tolerance test/imaging study, with recurrent symptoms it was reasonable that she be considered for reevaluation in the cardiac catheterization laboratory. In the interim she will continue medical therapy. 3. BEE She has a history of BEE. He should continue evaluation care by her primary care physicians, etc. 4. Tobacco use She does have a history of tobacco use. This is been discussed with her in the past. She has been advised to discontinue all tobacco intake. Comment: The patient's case has been previously discussed and reviewed with the [facility] ED staff and the [facility] hospital staff. This note was generated using a voice recognition system and there may be incorrect words, spelling or punctuation that were not noted when reviewing the office note prior to saving. Procedure Criteria Procedure Type: Elective COVID Risk Discussion: The surgeon/proceduralist and patient have discussed in detail the risk of exposure to and/or potential harm posed by the COVID-19 virus with having a surgery/procedure at this time versus the risk of delaying the surgery/procedure. It is not possible to know either the risk of delaying the surgery or procedure or chance of getting an infection with perfect accuracy, but a joint decision was made between the patient and the surgeon/proceduralist to proceed at this time with the scheduled surgery/procedure as indicated on the consent form.
[2020-04-04] MEDS: Acetaminophen 325 MG Tablet 650 MG PO (19:32)
[2020-04-04] MEDS: Metoprolol Tartrate 25 MG Tablet 12.5 MG PO (21:14)
[2020-04-04] MEDS: Pramipexole Di-HCl 0.25 MG Tablet PO (21:14)
[2020-04-04] MEDS: Famotidine 20 MG Tablet PO (21:15)
[2020-04-04] MEDS: DiphenhydrAMINE 25 MG Capsule 50 MG PO (21:15)
[2020-04-04] MEDS: predniSONE 20 MG Tablet 60 MG PO (21:15)
[2020-04-04] MEDS: Atorvastatin Calcium 80 MG Tablet PO (21:15)
[2020-04-04] MEDS: Escitalopram Oxalate 10 MG Tablet PO (21:15)
[2020-04-04] MEDS: NORETHINDRONE 0.35 MG TABLET PO (21:22)
[2020-04-04 21:30] LABS: Bedside Glucose 94 mg/dL (70-110)
--- NOTE | 2020-04-04 22:25 | RAD_ITS ---
STUDY: X-RAY CHEST REASON FOR EXAM: Female, 35 years old. Chest pain, heart cath placed in May. TECHNIQUE: Frontal view COMPARISON: 08/17/2019 FINDINGS: The lungs are clear and expanded. There is no demonstrated pleural abnormality. Normal size heart. Normal mediastinum and lima. Normal visualized pulmonary arteries. Normal visualized aortic arch and descending thoracic aorta. Normal visualized thoracic spine. Normal visualized ribs, clavicles, and shoulders. There is no demonstrated abnormality of the visualized soft tissue structures of the upper abdomen. RAD/Chest 1 View (Portable) IMPRESSION: Normal x-ray examination of the chest. Electronically Signed: Garland Núñez MD at 7:30 EDT , Service support ,
[2020-04-04 22:44] LABS: Bacteria 0 SEEN /hpf (None Seen); Mucous, Urine 0 SEEN /hpf (<or=2+); Red Blood Cells-Urine 0 SEEN /hpf (0-5)
[2020-04-04 22:46] LABS: Color, Urine Yellow (Yellow); Glucose, Dipstick Normal (Normal); Ketone-Dipstick Negative (Negative); Leukocyte Esterase-Dipstick 500 /ul (Negative); Nitrite-Dipstick Negative (Negative); Occult Blood-Urine 10 /ul (Negative); Protein-Dipstick Negative (Negative); Specific Gravity, Urine 1.005 (1.002-1.030); Urine Bilirubin Dipstick Negative (Negative); Urine Clarity Clear (Clear); Urine Urobilinogen Normal (Normal)
[2020-04-04 22:50] LABS: Internal QC Validated? YES +Cl - CLEAR BKGD; Pregnancy, Urine Negative Negative
[2020-04-04 22:53] LABS: Squamous Epithelial Cells - UA 0-5 SEEN /hpf (5-10); White Blood Cells 0-5 SEEN /hpf (0-5)
[2020-04-05] VITALS (9 sets, daily range): BP systolic 107–121; BP diastolic 50–79; PULSE 57–88; RESP 12–23; TEMP 36.6–36.9; O2SAT 95–97
[2020-04-05 05:18] LABS: Absolute Lymphocyte Count 0.67 X10^3/uL (0.83-4.51); Absolute Neutrophil Count 5.9 X10^3/uL (2.0-7.7); Basophil# 0.03 X10^3/uL; Basophil% 0.4 % (0-1); Hematocrit 43.8 % (37-47); Lymphocyte # 0.67 X10^3/ul (4.0); Mean Corpuscular Hgb 29.4 pg (27.0-32.0); Mean Corpuscular Volume 91.8 fL (81-99); Mean Platelet Vol. 12.1 fl (6.2-12.0); Monocyte# 0.05 X10^3/uL; Monocyte% 0.7 % (0-10); NRBC Flagged by Analyzer 0 % (0-5); Neutrophil # 5.91 X10^3/uL (2.7-7.7); Neutrophil % 88.5 % (47-70); Platelet Count 248 K/mm3 (150-450); RBC Distribution Width CV 13.1 % (11.6-14.6); RBC Distribution Width SD 44.4 fl (35.1-43.9); Red Blood Count 4.77 M/mm3 (4.2-5.4); White Blood Count 6.7 K/mm3 (4.4-11.0)
[2020-04-05 05:39] LABS: Anion Gap 6 (5-15); BUN 13 mg/dL (7-18); BUN/Creat Ratio 15.6 RATIO (10-20); Calcium,Total 8.7 mg/dL (8.5-10.1); Chloride 108 mmol/L (98-107); Cholesterol 90 mg/dL (200); Creatinine, Serum 0.83 mg/dL (0.55-1.02); EST Glomerular Filtration Rate 83 mL/min (>60); Est Glom Filt Rate - Afr Amer 100 mL/min (>60); Estimated Creatinine Clearance 71.39 ml/min; Glucose 150 mg/dL (74-106); High Density Lipoprotein 49 mg/dL; Potassium 4.4 mmol/L (3.5-5.1); Sodium Level 137 mmol/L (136-145); Triglycerides 38 mg/dL; Very Low Density Lipoprotein 8 mg/dL (5-40)
--- NOTE | 2020-04-05 05:55 | EKG12_ITS ---
Test Reason : AM EKG Blood Pressure : / mmHG Vent. Rate : 066 BPM Atrial Rate : 066 BPM P-R Int : 172 ms QRS Dur : 070 ms QT Int : 388 ms P-R-T Axes : 046 031 034 degrees QTc Int : 406 ms Normal sinus rhythm Normal ECG When compared with ECG of 17-AUG-2019 16:35, No significant change was found Confirmed by SANGEETA GLOVER, XAVIER ([id number]), photographic editor LENNOX FLAHERTY ([id number]) on 04/06/2020 11:31:42 AM Referred By: Irma Purcell Confirmed By:CORRINE RUTHERFORD MD
[2020-04-05] MEDS: Metoprolol Tartrate 25 MG Tablet 12.5 MG PO (06:07)
[2020-04-05] MEDS: Losartan Potassium 25 MG Tablet PO (06:08)
[2020-04-05] MEDS: Aspirin 81 MG TAB.CHEW PO (06:08)
[2020-04-05] MEDS: 0.9% Saline Lock 10 ML Syringe IV ×2 (06:08→07:25)
[2020-04-05] MEDS: Clopidogrel Bisulfate 75 MG Tablet PO (06:08)
[2020-04-05] MEDS: predniSONE 20 MG Tablet 60 MG PO (07:25)
[2020-04-05] MEDS: DiphenhydrAMINE 25 MG Capsule 50 MG PO (07:25)
[2020-04-05] MEDS: 0.9% Normal Saline 1,000 ML 15 ML IV (07:25)
[2020-04-05] MEDS: Famotidine 20 MG Tablet PO (07:25)
[2020-04-05 07:42] LABS: Bedside Glucose 154 mg/dL (70-110)
--- NOTE | 2020-04-05 09:33 | CASEMGMT ---
According to the [place] website, the following are in-network tertiary facilities: [facility], [facility], [facility], [facility], [facility], [facility], [facility], [place], [facility], and . Jeremi ROBBINS CM
--- NOTE | 2020-04-05 09:34 | ECHOCS_ITS ---
Reason For Study: CP Procedure This was a 2D Doppler, Color Flow transthoracic echocardiogram. The study was technically difficult. Contrast injection was performed. Exam performed portable in patient room. Left Ventricle Normal LV size. Segmental dysfunction with preserved ejection fraction (see wall motion). The estimated ejection fraction is 65 %. No evidence for diastolic dysfunction. Mid-Anterior : Mildly hypokinetic. Anterior [place] : Mildly hypokinetic. Lateral [place] : Mildly hypokinetic. Right Ventricle Normal RV size. Normal systolic function. Atria Normal left atrium. Normal right atrium. No doppler evidence for ASD. Mitral Valve There is no mitral annular calcification. Normal mitral valve. Trivial mitral valve insufficiency. Tricuspid Valve Normal tricuspid valve. Trivial tricuspid valve insufficiency. Unable to estimate RV systolic pressure/pulmonary artery pressure due to technically difficult study. Aortic Valve Trisinus/trileaflet aortic valve. Mild focal aortic valve thickening. Pulmonic Valve The pulmonic valve is not well visualized. Great Vessels The aortic root is not well visualized. Pericardium/Pleural No pericardial effusion. Medication Diluted definity 2ml given slow IV push to enhance endocardial definition. MMode/2D Measurements & Calculations LVIDd: 4.4 cm IVSd: 0.83 cm LA dimension: 3.4 cm LVIDs: 2.5 cm LVPWd: 0.88 cm FS: 43.6 % LAV(MOD-bp): 39.6 ml LA A4 area: 15.3 cm2 RA A4 area: 12.3 cm2 LAV(MOD-bp) Indexed: 20.5 ml/m2 LAV(MOD-sp2): 32.7 ml LAV(MOD-sp4): 42.3 ml Time Measurements MV dec time: 0.21 sec Doppler Measurements & Calculations MV E max say: 101.7 cm/sec Lat Peak E' Say: 13.7 cm/sec Med Peak E' Say: 10.6 cm/sec MV A max say: 81.4 cm/sec E/E' lat: 7.4 E/E' med: 9.6 MV E/A: 1.2 MV V2 max: 116.1 cm/sec MV P1/2t max say: 117.7 cm/sec Ao V2 max: 146.1 cm/sec MV max P.4 mmHg MV P1/2t: 51.1 msec Ao max P.5 mmHg MV V2 mean: 65.6 cm/sec MV dec slope: 675.0 cm/sec2 MV mean P.1 mmHg MV V2 VTI: 26.1 cm MVA(P1/2t): 4.3 cm2 LV V1 max: 119.7 cm/sec PA V2 max: 99.2 cm/sec LV V1 max P.7 mmHg Interpretation Summary The study was technically difficult. Contrast injection was performed. Segmental dysfunction with preserved ejection fraction (see wall motion). The estimated ejection fraction is 65 %. Trivial mitral valve insufficiency. Trivial tricuspid valve insufficiency. Mild focal aortic valve thickening. Unable to estimate RV systolic pressure/pulmonary artery pressure due to technically difficult study. No evidence for diastolic dysfunction. Ordering Physician: Abisai Kowalski Referring Physician: Paintsil, [place] Performed By: Danielito Galo RCS
--- NOTE | 2020-04-05 09:45 | CL.D_ITS ---
Patient Name: JULISSA GE Study Date: 04/05/2020 Performing: Abisai Kowalski MD Ht: 61.02 inches 155 cm : 1985 Wt: 220.46 lbs 100 kg Age: 35 Gender: female BSA: 1.97 PROCEDURE(S) PERFORMED [id number]/[facility] CLINICAL PROFILE AND INDICATIONS Indications: Suspected CAD Heart Failure: None Stress/Imaging Stress/Image Study Performed: No Angina Classification Anginal Classification w/in 2 Weeks: CCS IV CAD Presentations: Unstable angina. CONCLUSIONS Single vessel CAD of the 1st OM: Stent: Patent RECOMMENDATIONS Medical therapy DESCRIPTION OF PROCEDURE The patient arrived to the procedure lab. The risks and benefits of the procedure as well as a full d escription of our services here and current unavailability of surgical backup were fully explained to the patient and/or their significant other prior to the catheterization. The Timeout was completed, verifying the correct patient and procedure. The patient's procedural site was prepped and draped in the usual fashion. Local anesthetic was given subcutaneously to right radial region with Lidocaine 2% . Using a modified Seldinger technique, arterial access was obtained via the right radial artery, a 6 Fr sheath was inserted. Right Coronary Artery selective angiography was then performed in multiple v iews using a 5 Fr. 4.0 Turner catheter. Left Coronary Artery selective angiography was performed in mu ltiple views using a 5 Fr. AL 1 catheter.The arterial sheath was pulled and a TR Band was applied for hemostasis CORONARY ANGIOGRAPHY DOMINANCE: Right Dominant LEFT HEART ASSESSMENT Left Ventricular Ejection Fraction: Not assessed LEFT MAIN: Angiographically normal LEFT ANTERIOR DESCENDING ARTERY: Angiographically normal CIRCUMFLEX ARTERY: OM 1: Mid - Previously placed stent is patent RIGHT CORONARY ARTERY: Angiographically normal COMPLICATIONS No Complications PROCEDURE MEDICATIONS Versed 1 mg IV Fentanyl 50 mcg IV Versed 1 mg IV Fentanyl 50 mcg IV Oxygen: 2 L/min via nasal cannula Solu-cortef 100 mg IV 04/05/2020 08:50:16 SUMMARY OF HEMODYNAMIC DATA Time AIR REST ECG 08:27:11 AO 123/73 (93) SA 08:52:01 Signed By Abisai Kowalski MD On 04/05/2020 09:44:51 Abisai Kowalski MD
[2020-04-05] MEDS: Acetaminophen 325 MG Tablet 650 MG PO (10:02)
--- NOTE | 2020-04-05 11:14 | DCINST_ITS ---
- Discharge Diagnoses Current Active Problems: Current Active and Chronic Problems (Last Reviewed 01/01/20 @ 10:10 by Mounika Booth) Chest pain (Acute) CAD (coronary artery disease) (Acute) You will use the following diet at home:: Calorie/Carbohydrate Controlled (specify 1200, 1400, etc), Cardiac Discharge Activity: Return to Normal Activity Call your doctor if you observe: Shortness of breath, Dizziness, Fainting spells, Chest pain Allergies/Adverse Reactions: Allergies Iodinated Contrast Media [CONTRASTS] Allergy (Verified 04/04/20 15:29) Itching of tongue and swelling of lips morphine Adverse Reaction (Unknown, Verified 01/01/20 10:07) Itching Medications to take at Discharge Escitalopram Oxalate [Lexapro] 10 mg PO QHS 06/05/19 clopidogrel 75 mg tablet 75 mg PO DAILY #90 tab 06/26/19 metformin 750 mg tablet,extended release 24 hr 750 mg PO BID 07/24/19 norethindrone (contraceptive) 0.35 mg tablet 0.35 mg PO QHS 07/24/19 losartan 25 mg tablet 25 mg PO DAILY tab 01/01/20 Aspirin [Aspirin, Baby] 81 mg PO DAILY@0800 04/04/20 Atorvastatin Calcium [Lipitor] 80 mg PO QHS 04/04/20 Metoprolol Tartrate 12.5 mg PO BID 04/04/20 Orlistat [Toni] 60 mg PO TID 04/04/20 Ropinirole HCl 0.5 mg PO QHS 04/04/20 Primary Care Physician: Thalia Jackson MD [Primary Care Provider] - Please follow up with your Primary Care Physician in: 1 Week Test Results: Test results from this visit will be discussed in further detail at your follow- up appointment, if applicable. Please Follow Up With: Trell Guerin NP, [employer] CONSULTANT-C When: 2 Weeks Proposed Discharge Date: 04/05/20
[2020-04-05] MEDS: Insulin Lispro 100 UNIT/ML INSULN.PEN SC (11:15)
[2020-04-05 11:30] LABS: Bedside Glucose 164 mg/dL (70-110)
--- NOTE | 2020-04-05 13:44 | PCM.DC.SUM ---
<JeremiasAlis [employer] - Last Filed: 04/05/20 13:50> Discharge Date and Diagnosis - Problem List Patient Problems: Active and Suspected Problems (Last Reviewed 01/01/20 @ 10:10 by Mounika Booth) Chest pain (Acute) CAD (coronary artery disease) (Acute) Date of Admission: 04/04/20 Date of Discharge: 04/05/20 - Primary Discharge Diagnosis Acute Problems: Active Problems (Last Reviewed 01/01/20 @ 10:10 by Mounika Booth) 1. Chest pain-ACS ruled out 2. CAD, history of NSTEMI with PTCA/PRADIP to mid superior branch of the obtuse marginal artery 05/2019 3. Hypertension 4. Hyperlipidemia 5. BEE 6. Obesity 7. Prediabetes 8. Depression/anxiety 9. Restless leg syndrome 10. Chewing tobacco use - Secondary Discharge Diagnosis Chronic Problems: Chronic Problems History of myocardial infarction (Chronic) Hyperinsulinism (Chronic) Arthritis (Chronic) Restless legs syndrome (RLS) (Chronic) PLMS index 14.2 BEE (obstructive sleep apnea) (Chronic) AHI 9.2 S/P coronary artery stent placement (Chronic 06/05/19) Successful PTCA/PRADIP mid superior branch of OM#1 with a 2.25 x 20 Promus Synergy at 9 marilu; 85%-->0%, no dissection 06/05/19 Atherosclerotic heart disease of [place] coronary artery without angina pectoris (Chronic) Chewing tobacco nicotine dependence (Chronic) Hospital Course and Treatment Imaging Results: Diagnostic Data Chest X-Ray 04/04/20 22:25 IMPRESSION: Normal x-ray examination of the chest. Electronically Signed: Garland Núñez MD at 7:30 EDT , Service support , Dr. Kowalski- Cardiology Operations: None Procedures: 2-D Echocardiogram, Cardiac catheterization Summary of Care Provided: The patient is a 35 year old F admitted 04/04/2020 due to chest pain. 1. Chest pain-ACS ruled out. Troponin negative. Cardiology consulted, patient follows with Dr. Kowalski. Patient underwent stress echo July 2019 which demonstrated an EF of 65%, negative for ischemia. D-dimer at outside facility negative. Chest x-ray unremarkable as well. Patient underwent heart cath which showed single-vessel CAD of the first OM with patent stent. Echocardiogram demonstrates an EF of 65% follow-up with cardiology in 2 weeks. 2. CAD, history of NSTEMI with PTCA/PRADIP to mid superior branch of the obtuse marginal artery 05/2019-continue aspirin, statin, Plavix, metoprolol, losartan. 3. Hypertension-stable, continue losartan and metoprolol. 4. Hyperlipidemia-continue high-dose statin. 5. BEE-continue home CPAP regimen. 6. Obesity-recently started on Toni for weight loss. Dietitian consult. 7. Prediabetes-continue Metformin. Hemoglobin A1c 5.4%. 8. Depression/anxiety-continue escitalopram. 9. Restless leg syndrome-continue Requip. 10. Chewing tobacco use-encouraged cessation. General: Alert, Oriented x3, Cooperative HEENT: Atraumatic, PERRLA, EOMI, Normocephalic Neck: Supple, No JVD, Negative Carotid Bruits Lungs: Clear to auscultation, Normal air movement Cardiovascular: Regular rate, No murmurs Abdomen: Bowel Sounds Present, Soft, Non Tender, Non-Distended, Obese Extremities: No clubbing, No cyanosis, No edema, Capillary Refill Less than 3 Seconds Skin: No rashes, No breakdown Musculoskeletal: No Tenderness to Palpation of Joints or Extremities Neurological: Cranial nerves II-XII grossly intact, Neuro grossly intact Psych/Mental Status: Normal Affect, Appropriate Patient seen and examined prior to discharge. Physical assessment as noted above. Patient is stable for discharge with follow up recommendations as noted above. This patient was seen by DEBBIE Wade under the supervision of Dr. Stone. Patient Problems: Active and Suspected Problems (Last Reviewed 01/01/20 @ 10:10 by Mounika Booth) Chest pain (Acute) CAD (coronary artery disease) (Acute) - Physical Exam Vitals/I&O's: Vital Signs Temp Pulse Resp BP Pulse Ox 98.5 F 70 22 H 121/78 H 96 04/05/20 10:00 04/05/20 11:00 04/05/20 11:00 04/05/20 11:00 04/05/20 11:00 Oxygen Delivery Method Room Air Weight: 221 lb Body Mass Index (BMI) 41.7 Intake and Output for Last 24 Hours 04/03/20 04/04/20 04/05/20 23:59 23:59 23:59 Intake Total 999 440 / 440 Balance 999 440 / 440 Laboratory Results 04/04/20 16:18: POC Glucose 75 04/04/20 16:20: Hemoglobin A1c 5.4 04/04/20 16:20: Troponin I < 0.015 04/04/20 18:50: Troponin I < 0.015 04/04/20 21:12: POC Glucose 94 04/04/20 21:40: Troponin I < 0.015 04/04/20 22:35: Urine Test Negative 04/04/20 22:35: Urine Color Yellow, Urine Clarity Clear, Urine pH 7.0, Ur Specific [place] 1.005, Urine Protein Negative, Urine Glucose (UA) Normal, Urine Ketones Negative, Urine Occult Blood 10 H, Urine Nitrite Negative, Urine Bilirubin Negative, Urine Urobilinogen Normal, Ur Leukocyte Esterase 500 H, Urine RBC 0 SEEN, Urine WBC 0-5 SEEN, Ur Squamous Epith Cells 0-5 SEEN, Urine Bacteria 0 SEEN, Urine Mucus 0 SEEN 04/05/20 04:54: WBC 6.7, RBC 4.77, Hgb 14.0, Hct 43.8, MCV 91.8, MCH 29.4, MCHC 32.0, RDW Std Deviation 44.4 H, RDW Coeff of Precious 13.1, Plt Count 248, MPV 12.1 H, Immature Gran % (Auto) 0.400, Neut % (Auto) 88.5 H, Lymph % (Auto) 10.0 L, Person % (Auto) 0.7, Eos % (Auto) 0.0, Baso % (Auto) 0.4, Absolute Neuts (auto) 5.9, Absolute Lymphs (auto) 0.67 L, Nucleated RBC % 0 04/05/20 04:54: Sodium 137, Potassium 4.4, Chloride 108 H, Carbon Dioxide 23.0, Anion Gap 6, BUN 13, Creatinine 0.83, Estim Creat Clear Calc 71.39, Est GFR (MDRD) Af Amer 100, Est GFR (MDRD) Non-Af 83, BUN/Creatinine Ratio 15.6, Glucose 150 H, Calcium 8.7, Triglycerides 38, Cholesterol 90, LDL Cholesterol 33, VLDL Cholesterol 8, HDL Cholesterol 49 04/05/20 06:12: POC Glucose 154 H 04/05/20 11:11: POC Glucose 164 H Current Medications Acetaminophen (Tylenol) 650 mg PO Q6H PRN PRN PRN Reason: Pain Score 1-10/Temp > 100.7 F Last Admin: 04/05/20 10:02 Dose: 650 mg Documented by: Aspirin (Aspirin, Baby) 81 mg PO DAILY@0800 [facility] Last Admin: 04/05/20 06:08 Dose: 81 mg Documented by: Atorvastatin Calcium (Lipitor) 80 mg PO QHS [facility] Last Admin: 04/04/20 21:15 Dose: 80 mg Documented by: Clopidogrel Bisulfate (Plavix) 75 mg PO DAILY [facility] Last Admin: 04/05/20 06:08 Dose: 75 mg Documented by: Escitalopram Oxalate (Lexapro) 10 mg PO QHS [facility] Last Admin: 04/04/20 21:15 Dose: 10 mg Documented by: Sodium Chloride () 1,000 mls @ 15 mls/hr IV .Q48H [facility] Last Infusion: 04/05/20 09:55 Dose: 75 mls/hr Documented by: Insulin Human Lispro (Humalog Kwikpen (Bkc)) 0 unit SC [facility]; Protocol Last Admin: 04/05/20 11:15 Dose: 1 unit Documented by: Losartan Potassium (Cozaar) 25 mg PO DAILY [facility] Last Admin: 04/05/20 06:08 Dose: 25 mg Documented by: Metoprolol Tartrate (Lopressor (Beta Leo)) 12.5 mg PO BID [facility] Last Admin: 04/05/20 06:07 Dose: 12.5 mg Documented by: Norethindrone (Claudia) 0.35 mg PO QHS [facility] Last Admin: 04/04/20 21:22 Dose: 0.35 mg Documented by: Ondansetron HCl (Zofran) 4 mg IV Q8H PRN PRN PRN Reason: NAUSEA/VOMITING Pramipexole Dihydrochloride (Mirapex) 0.25 mg PO QHS [facility] Last Admin: 04/04/20 21:14 Dose: 0.25 mg Documented by: Sodium Chloride () 10 - 40 ml IV UD PRN PRN Reason: SALINE FLUSH Last Admin: 04/05/20 07:25 Dose: 10 ml Documented by: Zolpidem Tartrate (Ambien (Generic)) 5 mg PO QHS PRN PRN PRN Reason: INSOMNIA Discharge Diet: Low fat/ Low Cholesterol, Carb Control Diet Discharge Activity: Return to Normal Activity Call your doctor if you observe: Shortness of breath, Dizziness, Fainting spells, Chest pain Home Medications: Medications to take at Discharge Escitalopram Oxalate [Lexapro] 10 mg PO QHS 06/05/19 clopidogrel 75 mg tablet 75 mg PO DAILY #90 tab 06/26/19 metformin 750 mg tablet,extended release 24 hr 750 mg PO BID 07/24/19 norethindrone (contraceptive) 0.35 mg tablet 0.35 mg PO QHS 07/24/19 losartan 25 mg tablet 25 mg PO DAILY tab 01/01/20 Aspirin [Aspirin, Baby] 81 mg PO DAILY@0800 04/04/20 Atorvastatin Calcium [Lipitor] 80 mg PO QHS 04/04/20 Metoprolol Tartrate 12.5 mg PO BID 04/04/20 Orlistat [Toni] 60 mg PO TID 04/04/20 Ropinirole HCl 0.5 mg PO QHS 04/04/20 Primary Care Physician: Thalia Jackson MD [Primary Care Provider] - Please follow up with your Primary Care Physician in: 1 Week Please Follow Up With: Trell Guerin [employer], [employer]ATE [employer]-C When: 2 Weeks Disposition: Home Minutes spent on discharge:: 35 Patient Condition:: Stable Medical Necessity - Tobacco Use Smoking Status: Never smoker Tobacco Use: Chew Meaningful Use Info Meaningful Use Diagnoses (Choose all that apply): None applicable <Jesusita Stone - Last Filed: 04/05/20 14:45> Discharge Date and Diagnosis - Primary Discharge Diagnosis Acute Problems: Active Problems (Last Reviewed 01/01/20 @ 10:10 by Mounika Booth) Chest pain (Acute) CAD (coronary artery disease) (Acute) - Secondary Discharge Diagnosis Chronic Problems: Chronic Problems History of myocardial infarction (Chronic) Hyperinsulinism (Chronic) Arthritis (Chronic) Restless legs syndrome (RLS) (Chronic) PLMS index 14.2 BEE (obstructive sleep apnea) (Chronic) AHI 9.2 S/P coronary artery stent placement (Chronic 06/05/19) Successful PTCA/PRADIP mid superior branch of OM#1 with a 2.25 x 20 Promus Synergy at 9 marilu; 85%-->0%, no dissection 06/05/19 Atherosclerotic heart disease of [place] coronary artery without angina pectoris (Chronic) Chewing tobacco nicotine dependence (Chronic) Hospital Course and Treatment Imaging Results: 04/05/20 09:34 Echo Complete W/ Contrast [ECHO] Routine Summary of Care Provided: I agree with the above and the following reflects my own independent history and physical exam ASSESSMENT Chest Pain CAD s/p PCI/PRADIP to mid superior branch of the obtuse marginal artery 05/2019 HTN HPL BEE Insulin Resistance MO RLS Depression/Anxiety Chewing Tobacco Use PLAN -Cath done and shows no obstructive disese and open PRADIP -ECHO shows EF of 65% with segmental wall motion abn -continue cardiac meds at home (ASA/Plavix/ARB/BB/Statin) -f/u with Cardiology (Dr. Kowalski) as directed Subjective: Pt states that her pain has resolved. Just returned from cath and happy to hear she has no disease that needed intervention. - Physical Exam Vitals/I&O's: Vital Signs Temp Pulse Resp BP Pulse Ox 98.5 F 70 22 H 121/78 H 96 04/05/20 10:00 04/05/20 11:00 04/05/20 11:00 04/05/20 11:00 04/05/20 11:00 Oxygen Delivery Method Room Air Weight: 100.244 kg Body Mass Index (BMI) 41.7 Intake and Output for Last 24 Hours 04/03/20 04/04/20 04/05/20 23:59 23:59 23:59 Intake Total 1000 / 1000 721.25 / 721.25 Balance 1000 / 1000 721.25 / 721.25 General: Alert, Oriented x3, Cooperative, No apparent distress, Well developed, Well nourished Lungs: Clear to auscultation, Normal air movement, No rhonchi, No wheeze, No rales Cardiovascular: Regular rate, Regular Rhythm, Normal S1, Normal S2, No murmurs, No Ectopic Activity, No rub noted, No Gallop Abdomen: Bowel Sounds Present, Soft, Non Tender, Non-Distended, Obese Extremities: No clubbing, No cyanosis, No edema, Capillary Refill Less than 3 Seconds, Peripheral Pulses Normal Neurological: Cranial nerves II-XII grossly intact, Neuro grossly intact Psych/Mental Status: Normal Affect, Appropriate, Alert and oriented to time, place, person, mood and affect Laboratory Results 04/04/20 16:18: POC Glucose 75 04/04/20 16:20: Hemoglobin A1c 5.4 04/04/20 16:20: Troponin I < 0.015 04/04/20 18:50: Troponin I < 0.015 04/04/20 21:12: POC Glucose 94 04/04/20 21:40: Troponin I < 0.015 04/04/20 22:35: Urine Test Negative 04/04/20 22:35: Urine Color Yellow, Urine Clarity Clear, Urine pH 7.0, Ur Specific [place] 1.005, Urine Protein Negative, Urine Glucose (UA) Normal, Urine Ketones Negative, Urine Occult Blood 10 H, Urine Nitrite Negative, Urine Bilirubin Negative, Urine Urobilinogen Normal, Ur Leukocyte Esterase 500 H, Urine RBC 0 SEEN, Urine WBC 0-5 SEEN, Ur Squamous Epith Cells 0-5 SEEN, Urine Bacteria 0 SEEN, Urine Mucus 0 SEEN 04/05/20 04:54: WBC 6.7, RBC 4.77, Hgb 14.0, Hct 43.8, MCV 91.8, MCH 29.4, MCHC 32.0, RDW Std Deviation 44.4 H, RDW Coeff of Precious 13.1, Plt Count 248, MPV 12.1 H, Immature Gran % (Auto) 0.400, Neut % (Auto) 88.5 H, Lymph % (Auto) 10.0 L, Person % (Auto) 0.7, Eos % (Auto) 0.0, Baso % (Auto) 0.4, Absolute Neuts (auto) 5.9, Absolute Lymphs (auto) 0.67 L, Nucleated RBC % 0 04/05/20 04:54: Sodium 137, Potassium 4.4, Chloride 108 H, Carbon Dioxide 23.0, Anion Gap 6, BUN 13, Creatinine 0.83, Estim Creat Clear Calc 71.39, Est GFR (MDRD) Af Amer 100, Est GFR (MDRD) Non-Af 83, BUN/Creatinine Ratio 15.6, Glucose 150 H, Calcium 8.7, Triglycerides 38, Cholesterol 90, LDL Cholesterol 33, VLDL Cholesterol 8, HDL Cholesterol 49 04/05/20 06:12: POC Glucose 154 H 04/05/20 11:11: POC Glucose 164 H Meaningful Use Info Meaningful Use Diagnoses (Choose all that apply): None applicable Inpatient E&M: 53016 Disch Hosp
--- NOTE | 2020-04-05 13:47 | PCM.PN.CARD ---
Subjectve: The patient is status post further noninvasive and invasive evaluation. She has not had any recurrent acute symptoms. Objective: Vital Signs Temp Pulse Resp BP Pulse Ox 98.5 F 70 22 H 121/78 H 96 04/05/20 10:00 04/05/20 11:00 04/05/20 11:00 04/05/20 11:00 04/05/20 11:00 Oxygen Delivery Method Room Air Weight: 221 lb Body Mass Index (BMI) 41.7 Intake and Output for Last 24 Hours 04/03/20 04/04/20 04/05/20 23:59 23:59 23:59 Intake Total 1000 / 1000 440 / 440 Balance 1000 / 1000 440 / 440 General: Awake, Alert, Oriented x 3, Cooperative, No Acute Distress, Obese HEENT: Atraumatic, Normocephalic, PERRL, EOMI, Sclera Non Icteric Neck: Supple, Good ROM, No JVD Lungs: Clear to auscultation Cardiovascular: Regular Rhythm, Normal S1, Normal S2 Vascular: No Carotid Bruits, Normal Radial Pulses Abdomen: Bowel Sounds Present, Soft Extremities: No edema Neurological: No Focal Motor or Sensory Deficit Psych/Mental Status: Appropriate 04/04/20 16:20: Hemoglobin A1c 5.4 04/04/20 16:20: Troponin I < 0.015 04/04/20 18:50: Troponin I < 0.015 04/04/20 21:40: Troponin I < 0.015 04/04/20 22:35: Urine Color Yellow, Urine Clarity Clear, Urine pH 7.0, Ur Specific [place] 1.005, Urine Protein Negative, Urine Glucose (UA) Normal, Urine Ketones Negative, Urine Occult Blood 10 H, Urine Nitrite Negative, Urine Bilirubin Negative, Urine Urobilinogen Normal, Ur Leukocyte Esterase 500 H, Urine RBC 0 SEEN, Urine WBC 0-5 SEEN 04/05/20 04:54: WBC 6.7, RBC 4.77, Hgb 14.0, Hct 43.8, MCV 91.8, MCH 29.4, MCHC 32.0, Plt Count 248, MPV 12.1 H, Immature Gran % (Auto) 0.400, Neut % (Auto) 88.5 H, Lymph % (Auto) 10.0 L, [place] % (Auto) 0.7, Eos % (Auto) 0.0, Baso % (Auto) 0.4, Absolute Neuts (auto) 5.9, Nucleated RBC % 0 04/05/20 04:54: Sodium 137, Potassium 4.4, Chloride 108 H, Carbon Dioxide 23.0, Anion Gap 6, BUN 13, Creatinine 0.83, Est GFR (MDRD) Af Amer 100, Est GFR (MDRD) Non-Af 83, BUN/Creatinine Ratio 15.6, Glucose 150 H, Calcium 8.7, Triglycerides 38, Cholesterol 90, LDL Cholesterol 33, VLDL Cholesterol 8, HDL Cholesterol 49 Rhythm: Sinus rhythm ECHO: Interpretation Summary The study was technically difficult. Contrast injection was performed. Segmental dysfunction with preserved ejection fraction (see wall motion). The estimated ejection fraction is 65 %. Trivial mitral valve insufficiency. Trivial tricuspid valve insufficiency. Mild focal aortic valve thickening. Unable to estimate RV systolic pressure/pulmonary artery pressure due to technically difficult study. No evidence for diastolic dysfunction. Cardiac Cath: CONCLUSIONS Single vessel CAD of the 1st OM: Stent: Patent RECOMMENDATIONS Medical therapy DESCRIPTION OF PROCEDURE The patient arrived to the procedure lab. The risks and benefits of the procedure as well as a full description of our services here and current unavailability of surgical backup were fully explained to the patient and/or their significant other prior to the catheterization. The Timeout was completed, verifying the correct patient and procedure. The patient's procedural site was prepped and draped in the usual fashion. Local anesthetic was given subcutaneously to right radial region with Lidocaine 2%. Using a modified Seldinger technique, arterial access was obtained via the right radial artery, a 6Fr sheath was inserted. Right Coronary Artery selective angiography was then performed in multiple views using a 5 Fr. 4.0 [place] catheter. Left Coronary Artery selective angiography was performed in multiple views using a 5 Fr. [place] 1 catheter.The arterial sheath was pulled and a TR Band was applied for hemostasis CORONARY ANGIOGRAPHY DOMINANCE: Right Dominant LEFT HEART ASSESSMENT Left Ventricular Ejection Fraction: Not assessed LEFT MAIN: Angiographically normal LEFT ANTERIOR DESCENDING ARTERY: Angiographically normal CIRCUMFLEX ARTERY: OM 1: Mid - Previously placed stent is patent RIGHT CORONARY ARTERY: Angiographically normal Medical Necessity - Tobacco Use Smoking Status: Never smoker Tobacco Use: Chew Assessment/Plan 1. Chest pain concerning for unstable angina The patient has undergone the rule out PR protocol. It has been negative. She is undergone further noninvasive and invasive evaluation. The results of her echocardiogram and cardiac catheterization are noted. On cardiac catheterization she did not appear to have any new angiographically significant CAD and her previous LCx/OM PTCA/stent appear to be patent. She did not require revascularization therapy. Thus there is concern at this time that her chest discomfort may have been non-CAD related. 2. [id number] post LCx PTCA/PRADIP From a cardiovascular standpoint she will need to continue risk factor modification medical therapy as deemed appropriate. It does not appear she requires additional cardiac diagnostic studies/therapeutic intervention at this time. 3. BEE She has a history of BEE. He should continue evaluation care by her primary care physicians, etc. 4. Tobacco use She does have a history of tobacco use. This is been discussed with her in the past. She has been advised to discontinue all tobacco intake. This note was generated using a voice recognition system and there may be incorrect words, spelling or punctuation that were not noted when reviewing the office note prior to saving.
== END 2020-04-05 11:14 | disposition home or self-care (01) ==
PROVIDERS: Hospitalist; Internal Medicine Cardiovascular Disease; Nurse Practitioner Family; Admitting Provider Internal Medicine; PCP Student in an Organized Health Care Education/Training Program; Referring Provider Internal Medicine; Visit Provider Internal Medicine
DX: R07.89 Other chest pain (principal); I25.110 Atherosclerotic heart disease of native coronary artery with unstable angina pectoris; E78.5 Hyperlipidemia, unspecified; G47.33 Obstructive sleep apnea (adult) (pediatric); I10 Essential (primary) hypertension; E66.9 Obesity, unspecified; Z68.41 Body mass index [BMI] 40.0-44.9, adult; I25.2 Old myocardial infarction; G25.81 Restless legs syndrome; M19.90 Unspecified osteoarthritis, unspecified site; F17.220 Nicotine dependence, chewing tobacco, uncomplicated; F41.9 Anxiety disorder, unspecified; E88.81 Metabolic syndrome and other insulin resistance; F32.9 Major depressive disorder, single episode, unspecified; Z95.5 Presence of coronary angioplasty implant and graft; Z79.899 Other long term (current) drug therapy; Z79.82 Long term (current) use of aspirin; Z79.84 Long term (current) use of oral hypoglycemic drugs; Z79.02 Long term (current) use of antithrombotics/antiplatelets
CPT/HCPCS: 36415; 71045; 80048; 80061; 81001; 81025; 82962; 83036; 84484; 85025; 93005; 93306; 93458; 94002; 94003; 99152; 99153; 99218; 99406; J7030; Q9957; Q9967; A4216; C1769; C1894; C8929; G0378

== ENCOUNTER 2021-03-21 10:25 | Emergency (ER) | payer OTHER, SELFPAY ==
[2019-08-31 08:12] VITALS: BMI 38.8
[2021-03-21 10:26] VITALS: BP 140/107; PULSE 117; RESP 16; TEMP 35.9; O2SAT 96; BMI 41.5
--- NOTE | 2021-03-21 11:38 | VDLE_ITS ---
Reason For Study: R groin pain RIGHT LEFT GSV is normal. GSV is normal. CFV is compressible. CFV is compressible. FV is compressible. FV is compressible. POP V is compressible. POP V is compressible. T/P Trunk is compressible. T/P Trunk is compressible. PTV is compressible. PTV is compressible. RT PerV is compressible. LT PerV is compressible. Procedure This is a venous duplex using B-mode, color flow and spectral Doppler. Exam performed portable in ED. The exam was abbreviated due to the COVID 19 protocol. The exam was diagnostic. A preliminary report was called and/or faxed to Dr. Collins. VL/Venous Duplex US - David Extrem Interpretation Summary No evidence for acute deep venous thrombosis bilateral lower extremities with p atent and compressible bilateral great saphenous veins. Abbreviated COVID-19 protocol uti lized Ordering Physician: Kary Collins Performed By: Sy Kuhn RVT
[2021-03-21 12:20] LABS: Absolute Lymphocyte Count 0.98 X10^3/uL (0.83-4.51); Basophil# 0.02 X10^3/uL; Basophil% 0.9 % (0-1); Hematocrit 42.5 % (37-47); Hemoglobin 14.2 g/dL (12.0-15.0); Lymphocyte # 0.98 X10^3/ul (0.83-4.51); Lymphocyte % 46.4 % (19-41); Mean Corp Hgb Conc 33.4 g/dL (32-36); Mean Corpuscular Volume 86.7 fL (81-99); Monocyte# 0.15 X10^3/uL; Monocyte% 7.1 % (0-10); NRBC Flagged by Analyzer 0 % (0-5); Neutrophil # 0.95 X10^3/uL (2.7-7.7); Neutrophil % 45.1 % (47-70); POSITIVE DIFFERENTIAL YES; POSITIVE MORPHOLOGY YES; Platelet Count 179 K/mm3 (150-450); RBC Distribution Width CV 13.3 % (11.6-14.6); RBC Distribution Width SD 41.9 fl (35.1-43.9); White Blood Count 2.1 K/mm3 (4.4-11.0)
[2021-03-21 12:27] LABS: Differential Indicated SCAN CRITERIA MET
[2021-03-21 12:38] LABS: ALB/GLOB Ratio 0.8 RATIO (0.9-2.4); AST(SGOT) 39 U/L (15-37); Alanine Aminotransfer ALT/SGPT 45 U/L (13-56); Albumin, Serum 3.2 g/dL (3.2-5.0); Alkaline Phosphatase 124 U/L (45-117); Anion Gap 10 (5-15); BUN 10 mg/dL (7-18); BUN/Creat Ratio 11.8 RATIO (10-20); CPK Total, Creatine Kinase 148 U/L (26-192); Calcium,Total 8.6 mg/dL (8.5-10.1); Chloride 107 mmol/L (98-107); Creatinine, Serum 0.85 mg/dL (0.55-1.02); EST Glomerular Filtration Rate 80 mL/min (>60); Est Glom Filt Rate - Afr Amer 97 mL/min (>60); Estimated Creatinine Clearance 69.71 ml/min; Glucose 85 mg/dL (74-106); Potassium 3.7 mmol/L (3.5-5.1); Protein, Total 7.2 g/dL (6.4-8.2); Sodium Level 140 mmol/L (136-145)
--- NOTE | 2021-03-21 12:50 | RAD_ITS ---
STUDY: X-RAY CHEST REASON FOR EXAM: Female, 35 years old. cough, + COVID TECHNIQUE: Single AP portable view of the chest. COMPARISON: 04/04/2020 FINDINGS: The lungs are clear and expanded. There is no demonstrated pleural abnormality. Normal size heart. Normal mediastinum and lima. Normal visualized pulmonary arteries. Normal visualized aortic arch and descending thoracic aorta. Normal visualized thoracic spine. Normal visualized ribs, clavicles, and shoulders. There is no demonstrated abnormality of the visualized soft tissue structures of the upper abdomen. RAD/Chest 1 View (Portable) IMPRESSION: Normal x-ray examination of the chest. Electronically Signed: Fracisco Garvey MD at 13:28 EDT Tel , Service support ,
[2021-03-21 14:09] VITALS: BP 117/78; PULSE 85; RESP 16; O2SAT 100
[2021-03-21 14:10] VITALS: O2SAT 97
--- NOTE | 2021-03-21 14:12 | EDS_ITS ---
HPI History of Present Illness Chief Complaint: Lower Extremity Injury Informant: patient Narrative Narrative: Patient is a 35-year-old female with history of coronary artery disease, restless leg syndrome, history of [place] and tobacco abuse presenting with leg pain. Patient states she was diagnosed with COVID-19 infection 1 week ago. She started having symptoms on 03/14. She states she was diagnosed with a home Covid test. She no she is continued have fever, cough, congestion and body aches. Since last night she has had worsening pain in her right lower extremity and down her right groin. She has aching sensation in her right calf. She could not sleep last night because of the pain. She is taking Tylenol which does help her symptoms somewhat. She denies any chest pain or difficulty breathing. She no she does feel little winded with exertion. No other complaints at this time. [facility] Medical History Arthritis Atherosclerotic heart disease of [place] coronary artery without angina pectoris Chewing tobacco nicotine dependence History of myocardial infarction Hyperinsulinism Home Medications clopidogrel 75 mg tablet 75 mg PO DAILY #90 tab 06/26/19 [Rx Last Taken 04/04/20] metformin 750 mg tablet,extended release 24 hr 750 mg PO BID 07/24/19 [History Last Taken 04/04/20] norethindrone (contraceptive) 0.35 mg tablet 0.35 mg PO QHS 07/24/19 [History Last Taken 04/03/20] losartan 25 mg tablet 25 mg PO DAILY tab 01/01/20 [History Last Taken 04/04/20] aspirin 81 mg PO DAILY@0800 04/04/20 [History Last Taken 04/04/20] metoprolol tartrate 25 mg tablet 12.5 mg PO BID #90 tab 09/06/20 [Rx Last Taken Unknown] atorvastatin 80 mg tablet 80 mg PO QHS #90 tablet 09/21/20 [Rx Last Taken Unknown] duloxetine 60 mg capsule,delayed release 60 mg PO DAILY 02/17/21 [History Last Taken Unknown] ropinirole 0.5 mg tablet 0.5 mg PO QHS 02/17/21 [History Last Taken Unknown] Allergy/AdvReac Type Severity Reaction Status Date / Time Iodinated Contrast Media Allergy Itching of Verified 03/21/21 10:28 [CONTRASTS] tongue and swelling of lips morphine AdvReac Unknown Itching Verified 03/21/21 10:28 Family History Father Diabetes Grandfather Presence of pancreatic duct stent Surgical History History of left heart catheterization (04/05/20) S/P coronary artery stent placement (06/05/19) Social History Smoking Status: Never smoker Smokeless tobacco user: chewing tobacco alcohol intake: never substance use type: does not use caffeine: Yes Type: carbonated beverages Number of servings: 3 ROS ROS ED Constitutional Constitutional ED: Reports chills and fever(s) Eyes Eyes: Denies change in vision ENT ENT ED: Reports rhinorrhea and sore throat Cardiovascular Cardiovascular: Denies chest pain or palpitations Respiratory/Chest Respiratory/Chest: Reports cough; Denies dyspnea or sputum Gastrointestinal Gastrointestinal: Denies abdominal pain, diarrhea or vomiting Genitourinary Genitourinary ED: Denies dysuria Musculoskeletal Musculoskeletal: Reports arthralgias and myalgias Integumentary Denies rash Neurologic Neurologic: Reports headache(s); Denies weakness Psychiatric Psychiatric: Denies depression EXAM Physical Exam Const Vital Signs: 03/21/21 10:26 03/21/21 14:09 Temperature 96.7 F L Temperature Source Temporal Pulse Rate 117 H 85 Respiratory Rate 16 16 Blood Pressure 140/107 H 117/78 Blood Pressure Mean 118 91 Pulse Ox 96 100 Oxygen Delivery Method Room Air Room Air Positive well nourished, well developed and obese General Appearance ED: well developed Nutritional Appearance: obese HEENT Reports moist mucous membranes Eyes PERRL and EOMs intact bilaterally Neck no lymphadenopathy and supple Chest Wall inspection of chest normal Resp normal respiratory effort and clear to auscultation bilaterally Auscultation: Negative for wheezes or diminished lung sounds Cardio regular rate, regular rhythm and no murmurs GI normal to inspection, nondistended, normoactive bowel sounds and non-tender Back/Spine no CVA tenderness Extremity normal to inspection General Extremety ED: Negative for edema or tenderness General Extremity: Negative for edema Neuro oriented x3 Sensorium / Orientation: alert Motor Exam: Negative for general weakness Psych mental status grossly normal Skin no rashes or lesions noted and no wounds MDM MDM MDM Narrative Medical decision making narrative: Patient evaluated for myalgias and leg pain in the setting of a Covid 19 infection. Patient a positive home test. Will obtain a PCR as patient would be a candidate for monoclonal antibody therapy. She is otherwise well-appearing. She is not hypoxic. She is not tachycardic. She is at increased pain in her right lower extremity so I did obtain a DVT study which is negative. She has a leukopenia by suspect this is secondary to her viral infection. Covid test is positive and referral is sent. Patient is counseled on signs and symptoms requiring return to the emergency room. Patient verbalizes agreement and understand this plan. Patient discharged home in stable and improved condition. Patient is ambulated in the ER and does not have any hypoxia. She does not require steroids or supplemental oxygen. Lab Data Labs: Laboratory Results - last 24 hr 03/21/21 03/21/21 03/21/21 12:05 12:05 12:10 WBC 2.1 L RBC 4.90 Hgb 14.2 Hct 42.5 MCV 86.7 MCH 29.0 MCHC 33.4 RDW Std Deviation 41.9 RDW Coeff of [place] 13.3 Plt Count 179 MPV 12.0 Immature Gran % (Auto) 0.500 Neut % (Auto) 45.1 L Lymph % (Auto) 46.4 H [place] % (Auto) 7.1 Eos % (Auto) 0.0 Baso % (Auto) 0.9 Absolute Neuts (auto) 1.0 L Absolute Lymphs (auto) 0.98 Nucleated RBC % 0 Sodium 140 Potassium 3.7 Chloride 107 Carbon Dioxide 23.0 Anion Gap 10 BUN 10 Creatinine 0.85 Estim Creat Clear Calc 69.71 Est GFR (MDRD) Af Amer 97 Est GFR (MDRD) Non-Af 80 BUN/Creatinine Ratio 11.8 Glucose 85 Calcium 8.6 Total Bilirubin 0.20 AST 39 H ALT 45 Alkaline Phosphatase 124 H Total Creatine Kinase 148 Total Protein 7.2 Albumin 3.2 Globulin 4.0 Albumin/Globulin Ratio 0.8 L COVID-19 (PRABHA) Detected Radiography Chest X-Ray - ED: 1 View, Read by ED Physician, Read by Radiologist and No Acute Disease Diagnostic Testing: Radiology Impression Venous Doppler Study 03/21/21 11:38 Interpretation Summary No evidence for acute deep venous thrombosis bilateral lower extremities with patent and compressible bilateral great saphenous veins. Abbreviated COVID-19 protocol utilized Ordering Physician: Kary Collins Performed By: Sy Kuhn, RVT Chest X-Ray 03/21/21 12:50 IMPRESSION: Normal x-ray examination of the chest. Electronically Signed: Fracisco Garvey MD at 13:28 EDT Tel , Service support , Discharge Plan Triage Chief Complaint: Lower Extremity Injury ED Provider: Kary Collins Dx/Rx/DC Orders Clinical Impression: COVID-19 virus infection, Myalgia, Leukopenia Instructions: Coronavirus Disease 2019 (COVID-19): Caring for Yourself or Others Prescriptions: No Action clopidogrel 75 mg tablet 75 mg PO DAILY Qty: 90 RF: 3 norethindrone (contraceptive) [Kina] 0.35 mg tablet 0.35 mg PO QHS RF: 0 metformin 750 mg tablet extended release 24 hr 750 mg PO BID RF: 0 losartan 25 mg tablet 25 mg PO DAILY RF: 0 ropinirole 0.5 mg tablet 0.5 mg PO QHS RF: 0 duloxetine [Cymbalta] 60 mg capsule,delayed release(DR/EC) 60 mg PO DAILY RF: 0 aspirin 81 MG tablet,chewable 81 mg PO DAILY@0800 RF: 0 metoprolol tartrate 25 mg tablet 12.5 mg PO BID Qty: 90 RF: 4 atorvastatin 80 mg tablet 80 mg PO QHS Qty: 90 RF: 3 Other Ambulatory Orders: COVID Outpatient Monoclonal Antibody Referral (Routine) Timeframe: 1 Day Facility: [facility] Location: [facility] Ordered By: Dr. Kary Collins Primary Care Provider: Thalia Jackson Referrals: Thalia Jackson MD [Primary Care Provider] - Activity Restrictions/Additional Instructions: Your work-up was negative for any significant electrolyte abnormalities, concern for secondary bacterial infection or dehydration. There is no blood clot on ultrasound. Plan continue to alternate Tylenol and ibuprofen for fever and pain. If your PCR test comes back positive we will contact you about monoclonal antibody infusion. If you not hear from the ER by 8:00 tonight, please call to check on the results. Disposition Disposition: Home, Self Care Discharge Date/Time: 03/21/21 14:27
== END 2021-03-21 14:27 | disposition home or self-care (01) ==
PROVIDERS: Emergency Provider Emergency Medicine; PCP Student in an Organized Health Care Education/Training Program
DX: U07.1 COVID-19 (principal); M79.10 Myalgia, unspecified site; D72.819 Decreased white blood cell count, unspecified; I25.10 Atherosclerotic heart disease of native coronary artery without angina pectoris; I25.2 Old myocardial infarction; M19.90 Unspecified osteoarthritis, unspecified site; F17.220 Nicotine dependence, chewing tobacco, uncomplicated; E66.9 Obesity, unspecified; Z68.41 Body mass index [BMI] 40.0-44.9, adult; Z79.82 Long term (current) use of aspirin; Z79.02 Long term (current) use of antithrombotics/antiplatelets; Z79.899 Other long term (current) drug therapy
CPT/HCPCS: 71045; 80053; 82550; 85025; 87635; 93970; 96360; 99283; J7030; U0005; A4216; U0003

== ENCOUNTER 2021-03-22 17:26 | Outpatient (CLI) | payer OTHER, SELFPAY ==
[2019-08-31 08:12] VITALS: BMI 38.8
[2021-03-22] MEDS: 0.9% Saline Lock 10 ML Syringe IV (17:43)
[2021-03-22 17:47] VITALS: BP 132/97; PULSE 105; RESP 16; TEMP 37.8; O2SAT 99; BMI 41.5
[2021-03-22 18:25] VITALS: BP 130/96; PULSE 98; RESP 18; TEMP 37.6; O2SAT 99
[2021-03-22 19:16] VITALS: BP 134/88; PULSE 103; RESP 16; TEMP 37.7; O2SAT 98
== END 2021-03-22 19:23 | disposition home or self-care (01) ==
LOC: MS3OUT 17:26 → MS3 17:28
PROVIDERS: PCP Student in an Organized Health Care Education/Training Program; Referring Provider Nurse Practitioner Adult Health; Visit Provider Nurse Practitioner Adult Health
DX: Z23 Encounter for immunization (principal); U07.1 COVID-19
CPT/HCPCS: J7050; M0243; A4216; Q0244

== ENCOUNTER 2021-07-07 09:46 | Outpatient (CLI) | payer OTHER, SELFPAY ==
[2019-08-31 08:12] VITALS: BMI 38.8
[2021-07-07 10:35] LABS: Hematocrit 44.6 % (37-47); Hemoglobin 14.9 g/dL (12.0-15.0); Mean Corp Hgb Conc 33.4 g/dL (32-36); Mean Corpuscular Hgb 28.8 pg (27.0-32.0); Mean Corpuscular Volume 86.3 fL (81-99); Mean Platelet Vol. 11.9 fl (6.2-12.0); Platelet Count 324 K/mm3 (150-450); RBC Distribution Width CV 13.1 % (11.6-14.6); Red Blood Count 5.17 M/mm3 (4.2-5.4)
[2021-07-07 11:29] LABS: BUN 13 mg/dL (7-18); Glucose 93 mg/dL (74-106)
[2021-07-07 11:30] LABS: ALB/GLOB Ratio 0.9 RATIO (0.9-2.4); AST(SGOT) 16 U/L (15-37); Alanine Aminotransfer ALT/SGPT 26 U/L (13-56); Albumin, Serum 3.5 g/dL (3.2-5.0); Alkaline Phosphatase 127 U/L (45-117); Anion Gap 8 (5-15); BUN/Creat Ratio 16.6 RATIO (10-20); Chloride 106 mmol/L (98-107); Cholesterol 116 mg/dL (200); Creatinine, Serum 0.78 mg/dL (0.55-1.02); EST Glomerular Filtration Rate 88 mL/min (>60); Est Glom Filt Rate - Afr Amer 107 mL/min (>60); Globulin 4.1 g/dL (2.2-4.2); High Density Lipoprotein 48 mg/dL; Potassium 4.1 mmol/L (3.5-5.1); Protein, Total 7.6 g/dL (6.4-8.2); Sodium Level 136 mmol/L (136-145); Triglycerides 98 mg/dL; Very Low Density Lipoprotein 20 mg/dL (5-40)
== END 2021-07-07 23:59 | disposition short-term general hospital (02) ==
LOC: LAB 09:49
PROVIDERS: PCP Student in an Organized Health Care Education/Training Program; Referring Provider Nurse Practitioner Gerontology; Visit Provider Nurse Practitioner Gerontology
DX: I25.10 Atherosclerotic heart disease of native coronary artery without angina pectoris (principal); Z72.0 Tobacco use
CPT/HCPCS: 36415; 80053; 80061; 85027

== ENCOUNTER 2022-04-13 12:44 | Emergency (ER) | payer OTHER, SELFPAY ==
[2019-08-31 08:12] VITALS: BMI 38.8
[2022-04-13 12:44] VITALS: BP 154/95; PULSE 122; RESP 18; TEMP 36.7; O2SAT 97; BMI 43.4
--- NOTE | 2022-04-13 12:53 | EX.ED.DYSGE1 ---
HPI <FLOYD Perez - Last Filed: 04/13/22 13:21> History of Present Illness Chief Complaint: Nosebleed Narrative Narrative: Patient states about 30 minutes ago she scratched her nose and developed a left-sided nosebleed. She is on aspirin and Plavix due to history of cardiac stent. Denies getting frequent nosebleeds. No dizziness or lightheadedness. PFSH <FLOYD Perez - Last Filed: 04/13/22 13:21> [facility] Medical History Arthritis Atherosclerotic heart disease of [place] coronary artery without angina pectoris Chewing tobacco nicotine dependence History of myocardial infarction Hyperinsulinism Home Medications clopidogrel 75 mg tablet 75 mg PO DAILY #90 tabs 06/26/19 [Rx Last Taken 04/04/20] metformin 750 mg tablet,extended release 24 hr 750 mg PO BID diabetes 07/24/19 [History Last Taken 04/04/20] norethindrone (contraceptive) 0.35 mg tablet (Kina) 0.35 mg PO QHS oral contraceptive 07/24/19 [History Last Taken 04/03/20] losartan 25 mg tablet 25 mg PO DAILY blood pressure 01/01/20 [History Last Taken 04/04/20] aspirin 81 mg chewable tablet 81 mg PO DAILY@0800 heart health 04/04/20 [History Last Taken 04/04/20] metoprolol tartrate 25 mg tablet 12.5 mg PO BID heart/blood pressure #90 tabs 09/06/20 [Rx Last Taken Unknown] atorvastatin 80 mg tablet 80 mg PO QHS cholesterol #90 tabs 09/21/20 [Rx Last Taken Unknown] duloxetine 60 mg capsule,delayed release (Cymbalta) 60 mg PO DAILY 02/17/21 [History Last Taken Unknown] ropinirole 0.5 mg tablet 0.5 mg PO QHS 02/17/21 [History Last Taken Unknown] Allergy/AdvReac Type Severity Reaction Status Date / Time Iodinated Contrast Media Allergy Itching of Verified 07/21/21 09:15 [CONTRASTS] tongue and swelling of lips morphine AdvReac Unknown Itching Verified 07/21/21 09:15 Family History Father Diabetes Grandfather Presence of pancreatic duct stent Surgical History History of left heart catheterization (04/05/20) S/P coronary artery stent placement (06/05/19) Social History Smoking Status: Never smoker Smokeless tobacco user: chewing tobacco alcohol intake: never substance use type: does not use caffeine: Yes Type: carbonated beverages Number of servings: 3 ROS <FLOYD Perez - Last Filed: 04/13/22 13:21> ROS ED ROS Narrative Constitutional: Negative for fever, chills, malaise. Eyes: Negative for visual change. ENT: Positive for epistaxis. CVS: Negative for palpitations, chest pain, syncope. Respiratory: Negative for shortness of breath, cough. GI: Negative for abdominal pain, nausea, vomiting. : Negative for dysuria, hematuria or frequency. Neuro: Negative for headache, motor/sensory dysfunction. Skin: Negative for rash, abscess, or wound. Musc: Negative for joint pain, swelling, trauma. Heme: Negative for easy bruising, bleeding, lymphadenopathy. EXAM <FLOYD Perez - Last Filed: 04/13/22 13:21> Physical Exam Narrative Exam Narrative: CONST: Patient sitting in no acute distress. EYES: Normal inspection. ENT: Clotted blood in left nare. NECK: Normal inspection. RESP: No respiratory distress, CTAB. CVS: Regular rate and rhythm, no murmur, no gallop. SKIN: Color normal, no rash, warm, dry, intact. EXTREMITIES: Normal appearance, no pedal edema. NEURO: Oriented x4. PSYCH: Normal affect. Const Vital Signs: 04/13/22 12:44 Temperature 98.1 F Temperature Source Temporal Pulse Rate 122 H Respiratory Rate 18 Blood Pressure 154/95 H Blood Pressure Mean 114 Pulse Ox 97 Oxygen Delivery Method Room Air <Dr. Ever Fabian MD - Last Filed: 04/13/22 13:22> Physical Exam Const Vital Signs: 04/13/22 12:44 Temperature 98.1 F Temperature Source Temporal Pulse Rate 122 H Respiratory Rate 18 Blood Pressure 154/95 H Blood Pressure Mean 114 Pulse Ox 97 Oxygen Delivery Method Room Air MDM <FLOYD Perez - Last Filed: 04/13/22 13:21> [facility] Narrative Medical decision making narrative: Patient was evaluated for an acute nosebleed. She has clotted blood in the left nare with no visible active bleeding. Normal posterior oropharynx. After blowing her nose we applied Afrin and I did a thorough examination that reveals no bleeding vessel. Patient monitored with no rebleeding and is stable for discharge home. Discussed if symptoms return to hold direct pressure and if this does not work return to the ER. <Dr. Ever Fabian MD - Last Filed: 04/13/22 13:22> [facility] Narrative Medical decision making narrative: Patient was evaluated for an acute nosebleed. She has clotted blood in the left nare with no visible active bleeding. Normal posterior oropharynx. After blowing her nose we applied Afrin and I did a thorough examination that reveals no bleeding vessel. Patient monitored with no rebleeding and is stable for discharge home. Discussed if symptoms return to hold direct pressure and if this does not work return to the ER. Seen and evaluated independently and in conjunction with physician programs assistant. Agree with notes above unless documented otherwise. Patient accidentally scratched her left nostril that started the bleeding. On exam, there is a linear excoriation to superficial and not bleeding at this time after Afrin. She was observed and there is no further bleeding. Given appropriate discharge instructions, I do not think she will need a packing but we did discuss those and why we would want to place one and reasons to return here. Discharge Plan Triage Chief Complaint: Nosebleed ED Midlevel Provider: Emma Harrison ED Provider: Ever Fabian Dx/Rx/DC Orders Clinical Impression: Acute anterior epistaxis Instructions: ED Epistaxis (Adult) Prescriptions: No Action clopidogrel 75 mg tablet 75 mg PO DAILY Qty: 90 3RF norethindrone (contraceptive) [Kina] 0.35 mg tablet 0.35 mg PO QHS metformin 750 mg tablet extended release 24 hr 750 mg PO BID losartan 25 mg tablet 25 mg PO DAILY ropinirole 0.5 mg tablet 0.5 mg PO QHS Rx Instructions: administer 1-3 hours before bedtime duloxetine [Cymbalta] 60 mg capsule,delayed release(DR/EC) 60 mg PO DAILY aspirin 81 MG tablet,chewable 81 mg PO DAILY@0800 metoprolol tartrate 25 mg tablet 12.5 mg PO BID Qty: 90 4RF atorvastatin 80 mg tablet 80 mg PO QHS Qty: 90 3RF Primary Care Provider: Thalia Jackson Referrals: Thalia Jackson MD [Primary Care Provider] - Activity Restrictions/Additional Instructions: Get any [id number] nasal decongestant spray containing oxymetazoline or phenylephrine. For moderate-severe nosebleed: 1 - gather supplies: nasal decongestant spray (above), cotton ball, box of tissues, garbage can, old towel that you can wrap around your chest/neck (to catch blood) 2 - soak a cotton ball in the nasal spray 3 - blow your nose, get all blood and clots out, keep chin down to prevent blood from going back into throat and forming clots 4 - after blowing the last time, quickly spray 2 sprays of the nasal spray into the affected side and sniff it back, immediately followed by twisting the soaked cotton ball into the front of your nose and then hold pressure with your fingers. 5 - if bleeding controlled, leave cotton ball in place for at least 20 min before checking to see if the bleeding is controlled by removing the cotton ball. If not able to control bleeding, always welcome to return to the ER for help. Disposition Disposition: Home, Self Care
[2022-04-13] MEDS: Oxymetazoline 0.05% 1 SPRAY SPRAY.BTL 2 SPRAY NASAL (13:11)
[2022-04-13 13:33] VITALS: PULSE 98; RESP 17; O2SAT 98
== END 2022-04-13 13:34 | disposition home or self-care (01) ==
LOC: ED 13:26
PROVIDERS: Emergency Provider Emergency Medicine; PCP Student in an Organized Health Care Education/Training Program; Visit Provider Emergency Medicine
DX: R04.0 Epistaxis (principal); I25.10 Atherosclerotic heart disease of native coronary artery without angina pectoris; I25.2 Old myocardial infarction; E16.1 Other hypoglycemia; F17.220 Nicotine dependence, chewing tobacco, uncomplicated; Z95.5 Presence of coronary angioplasty implant and graft; Z79.02 Long term (current) use of antithrombotics/antiplatelets; Z79.82 Long term (current) use of aspirin; Z79.899 Other long term (current) drug therapy
CPT/HCPCS: 30901; 99282

== ENCOUNTER 2022-10-30 20:54 | Emergency (ER) | payer OTHER, SELFPAY ==
[2019-08-31 08:12] VITALS: BMI 38.8
[2022-10-30 20:55] VITALS: BP 131/85; PULSE 108; RESP 15; TEMP 36.4; O2SAT 100; BMI 41.5
--- NOTE | 2022-10-30 21:00 | RAD_ITS ---
INDICATION: PAIN EXAMINATION/TECHNIQUE: X-RAY - RIGHT XR Shoulder Min 2 Views 4 VIEWS COMPARISON: FINDINGS: SOFT TISSUES: No soft tissue swelling or gas. No radiopaque foreign body. BONES/JOINTS: No acute fracture or subluxation.. Normal alignment. Preservation of the joint space.. No sclerotic or destructive changes observed. RAD/Shoulder min 2 Views IMPRESSION: Negative. Electronically Signed: Roque Mar MD at 21:22 EDT ,
--- NOTE | 2022-10-30 22:41 | EDS_ITS ---
HPI History of Present Illness Chief Complaint: Upper Extremity Injury Narrative Narrative: Patient is a 37-year-old female with past medical history of CAD as well as hypertension hyperlipidemia. She states that today she was helping to lift an air conditioner and she pushed it up above her head using her right arm. She states she is right-hand dominant. She states when she did this she developed some pain in the right shoulder region. She states has been painful throughout the day and difficult to movement with concern for underlying injury comes in for evaluation. [facility] Medical History (Updated 10/31/22 @ 02:[address] Yandel Bauer, DO) Arthritis Atherosclerotic heart disease of [place] coronary artery without angina pectoris Chewing tobacco nicotine dependence History of myocardial infarction Hyperinsulinism Home Medications metformin 750 mg tablet,extended release 24 hr 750 mg PO BID diabetes 07/24/19 [History Last Taken 04/04/20] norethindrone (contraceptive) 0.35 mg tablet (Kina) 0.35 mg PO QHS oral contraceptive 07/24/19 [History Last Taken 04/03/20] losartan 25 mg tablet 25 mg PO DAILY blood pressure 01/01/20 [History Last Taken 04/04/20] aspirin 81 mg chewable tablet 81 mg PO DAILY@0800 heart health 04/04/20 [History Last Taken 04/04/20] atorvastatin 80 mg tablet 80 mg PO QHS cholesterol #90 tabs 09/21/20 [Rx Last Ta richard Unknown] duloxetine 60 mg capsule,delayed release (Cymbalta) 60 mg PO DAILY 02/17/21 [History Last Taken Unknown] ropinirole 0.5 mg tablet 0.5 mg PO QHS 02/17/21 [History Last Taken Unknown] metoprolol tartrate 25 mg tablet 25 mg PO BID heart/blood pressure #90 tabs 09/11/22 [Rx Last Taken Unknown] Allergy/AdvReac Type Severity Reaction Status Date / Time Iodinated Contrast Media Allergy Itching of Verified 10/30/22 21:39 [CONTRASTS] tongue and swelling of lips morphine AdvReac Unknown Itching Verified 10/30/22 21:39 Family History Father Diabetes Grandfather Presence of pancreatic duct stent Surgical History History of left heart catheterization (04/05/20) S/P coronary artery stent placement (06/05/19) Social History (Reviewed 08/10/22 @ 13:21 by Sweta Lezama SCREEN PRINTING INSPECTOR, SCREEN PRINTING INSPECTOR-C) Smoking Status: Never smoker Smokeless tobacco user: chewing tobacco alcohol intake: never substance use type: does not use caffeine: Yes Type: carbonated beverages Number of servings: 3 ROS ROS ED Constitutional Constitutional ED: Denies chills or fever(s) ENT ENT ED: Denies sore throat Cardiovascular Cardiovascular: Denies chest pain Respiratory/Chest Respiratory/Chest: Denies cough or dyspnea Gastrointestinal Gastrointestinal: Denies abdominal pain, diarrhea, nausea or vomiting Genitourinary Genitourinary ED: Denies dysuria Musculoskeletal Musculoskeletal: Reports other Details: Positive right shoulder pain ; Denies back pain or neck pain Integumentary Denies rash Neurologic Neurologic: Denies headache(s) or paresthesias Hematologic/Lymphatic Hematologic/Lymphatic: Denies easy bleeding or easy bruising EXAM Physical Exam Const Vital Signs: 10/30/22 20:55 Temperature 97.5 F L Temperature Source Temporal Pulse Rate 108 H Respiratory Rate 15 Blood Pressure 131/85 H Blood Pressure Mean 100 Pulse Ox 100 Oxygen Delivery Method Room Air Positive well nourished, well developed and obese General Appearance ED: well developed Nutritional Appearance: obese Eyes PERRL and EOMs intact bilaterally Neck supple Resp normal respiratory effort and clear to auscultation bilaterally Cardio regular rate and regular rhythm Extremity Extremity Narrative: Right upper extremity is neurovascularly intact; AIN/PIN are intact and normal. Active range of motion is decreased secondary to pain. There is no obvious bony deformity or joint effusion noted. Negative sulcus sign. Pain with palpation over top of the anterior aspect of the right shoulder over top the supraspinatus tendon. There is increased pain with front shoulder raise as well as abduction concerning for rotator cuff strain. Remained of the exam is n ormal Neuro oriented x3 and CN's II-XII intact bilaterally Sensorium / Orientation: alert Psych mental status grossly normal Skin no rashes or lesions noted MDM MDM MDM Narrative Medical decision making narrative: Patient presented to the ER with report of mechanical injury to the right shoulder. With the report of the lifting mechanism there is concern for rotator cuff injury versus dislocation versus acute bony trauma such as fracture. An x-ray was obtained which revealed normal anatomical alignment and no fracture. History and exam is concerning for rotator cuff injury mainly to the supraspinatus tendon. However based on her strength and range of motion this would indicate it is a grade 1 injury and this does not require emergent orthopedic consultation and she is also neurovascular intact. Therefore she becomes symptomatic care and is otherwise safe for discharge History & Record Review Discussion w/independent historian: Patient Radiography Diagnostic Testing: Clinical Impression(s) from Imaging Studies Shoulder X-Ray 10/30/22 21:00 IMPRESSION: Negative. Electronically Signed: Roque Mar MD at 21:22 EDT Reading Location ID and State: [facility] / [place] , Service support , Right shoulder x-ray as interpreted by the emergency medicine physician reveals no acute fracture dislocation or joint effusion Discharge Plan Triage Chief Complaint: Upper Extremity Injury ED Provider: Yandel Bauer Dx/Rx/DC Orders Clinical Impression: Sprain of right rotator cuff capsule, initial encounter, Restless legs syndrome (RLS), CAD (coronary artery disease) Instructions: Rotator Cuff Injury Prescriptions: No Action norethindrone (contraceptive) [Kina] 0.35 mg tablet 0.35 mg PO QHS metformin 750 mg tablet extended release 24 hr 750 mg PO BID losartan 25 mg tablet 25 mg PO DAILY ropinirole 0.5 mg tablet 0.5 mg PO QHS Rx Instructions: administer 1-3 hours before bedtime duloxetine [Cymbalta] 60 mg capsule,delayed release(DR/EC) 60 mg PO DAILY aspirin 81 MG tablet,chewable 81 mg PO DAILY@0800 atorvastatin 80 mg tablet 80 mg PO QHS Qty: 90 3RF metoprolol tartrate 25 mg tablet 25 mg PO BID Qty: 90 4RF Stand Alone Forms: ED Work / School Excuse Primary Care Provider: Thalia Jackson Referrals: Thalia Jackson MD [Primary Care Provider] - Activity Restrictions/Additional Instructions: Please continue to stretch and perform range of motion exercises to help speed healing and return to the ER should you have any further concerns Disposition Disposition: Home, Self Care Discharge Date/Time: 10/30/22 22:52
[2022-10-30 22:51] VITALS: RESP 18
== END 2022-10-30 22:52 | disposition home or self-care (01) ==
PROVIDERS: Emergency Provider Emergency Medicine; PCP Student in an Organized Health Care Education/Training Program; Visit Provider Emergency Medicine
DX: S43.421A Sprain of right rotator cuff capsule, initial encounter (principal); Z68.41 Body mass index [BMI] 40.0-44.9, adult; X50.0XXA Overexertion from strenuous movement or load, initial encounter; Y93.89 Activity, other specified; I25.10 Atherosclerotic heart disease of native coronary artery without angina pectoris; I25.2 Old myocardial infarction; I10 Essential (primary) hypertension; E78.5 Hyperlipidemia, unspecified; F17.220 Nicotine dependence, chewing tobacco, uncomplicated; G25.81 Restless legs syndrome; E66.9 Obesity, unspecified; Z95.5 Presence of coronary angioplasty implant and graft; Z79.82 Long term (current) use of aspirin; Z79.899 Other long term (current) drug therapy
CPT/HCPCS: 73030; 99282

== ENCOUNTER 2023-04-29 21:58 | Emergency (ER) | payer OTHER, SELFPAY ==
[2019-08-31 08:12] VITALS: BMI 38.8
[2023-04-29 21:59] VITALS: BP 141/90; PULSE 82; RESP 16; TEMP 36.6; O2SAT 100; BMI 41.1
--- NOTE | 2023-04-29 22:29 | EKG12_ITS ---
Test Reason : CP Blood Pressure : / mmHG Vent. Rate : 082 BPM Atrial Rate : 082 BPM P-R Int : 180 ms QRS Dur : 070 ms QT Int : 340 ms P-R-T Axes : 053 035 048 degrees QTc Int : 397 ms Normal sinus rhythm with sinus arrhythmia Normal ECG Confirmed by SANGEETA GLOVER, XAVIER ([id number]), news assignment editor LENNOX FLAHERTY ([id number]) on 05/06/2023 10:12:34 AM Referred By: Confirmed By:CORRINE RUTHERFORD MD
[2023-04-29] MEDS: Aspirin 81 MG TAB.CHEW 263 MG PO (22:34)
--- NOTE | 2023-04-29 22:34 | RAD_ITS ---
EXAM: XR CHEST, 2 VIEWS CLINICAL INDICATION: chest pain TECHNIQUE: Frontal and lateral views of the chest. COMPARISON: 08/17/19 CXR. FINDINGS: LUNGS AND PLEURAL SPACES: Unremarkable. No consolidation or edema. No pneumothorax. No effusion. HEART: Unremarkable. Cardiac silhouette not enlarged. MEDIASTINUM: Central airways and mediastinal contour are unremarkable. BONES/JOINTS: Unremarkable. SOFT TISSUES: Unremarkable. RAD/Chest PA and Lateral IMPRESSION: No radiographic evidence of acute cardiopulmonary disease. Electronically Signed: Yandel Hayden MD at 23:35 EST ,
--- NOTE | 2023-04-29 22:34 | ED.VIS.CHEST ---
HPI History of Present Illness Chief Complaint: Chest Pain Informant: patient Narrative Narrative: Presents with chest pain starting 8:30 PM. 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 States had mild numbness around her lips and little dizzy symptoms subsiding. Denies tobacco history. No family history of PR. However states 2019 ended up with an PR with 1 stenting. Since stents been on cholesterol and blood pressure medicines. History of PCOS prediabetes on metformin. Denies any recent cough. Took her baby aspirin earlier this afternoon. States this feels different than her symptoms of PR which were bilateral arm numbness with chest pains and lightheaded symptoms. Prior Similar Symptoms: No CVD Risk Factors: Positive for Hypertension, Diabetes and Hypercholesterolemia; Negative for Family History 1' </=55 or Smoking PE Risk Factors: Negative for Recent Travel/Surgery, Recent Immobilization or Prior DVT or PE [facility] Medical History (Updated 04/30/23 @ 01:[address] Mauro Grande DO) Arthritis Atherosclerotic heart disease of [place] coronary artery without angina pectoris Chewing tobacco nicotine dependence History of myocardial infarction Hyperinsulinism Home Medications metformin 750 mg tablet,extended release 24 hr 750 mg PO BID diabetes 07/24/19 [History Last Taken 04/04/20] norethindrone (contraceptive) 0.35 mg tablet (Kina) 0.35 mg PO QHS oral contraceptive 07/24/19 [History Last Taken 04/03/20] losartan 25 mg tablet 25 mg PO DAILY blood pressure 01/01/20 [History Last Taken 04/04/20] aspirin 81 mg chewable tablet 81 mg PO DAILY@0800 heart health 04/04/20 [History Last Taken 04/04/20] atorvastatin 80 mg tablet 80 mg PO QHS cholesterol #90 tabs 09/21/20 [Rx Last Taken Unknown] ropinirole 0.5 mg tablet 0.5 mg PO QHS 02/17/21 [History Last Taken Unknown] metoprolol tartrate 25 mg tablet 25 mg PO BID heart/blood pressure #90 tabs 09/11/22 [Rx Last Taken Unknown] paroxetine HCl 40 mg tablet (Paxil) 40 mg PO DAILY 03/29/23 [History Last Taken Unknown] Allergy/AdvReac Type Severity Reaction Status Date / Time Iodinated Contrast Media Allergy Itching of Verified 04/29/23 21:59 [CONTRASTS] tongue and swelling of lips morphine AdvReac Unknown Itching Verified 04/29/23 21:59 Family History Father Diabetes Grandfather Presence of pancreatic duct stent Surgical History History of left heart catheterization (04/05/20) S/P coronary artery stent placement (06/05/19) Social History Smoking Status: Never smoker Smokeless tobacco user: chewing tobacco alcohol intake: never substance use type: does not use caffeine: Yes Type: carbonated beverages Number of servings: 3 ROS ROS ED Constitutional Constitutional ED: Denies chills, fever(s) or sweats Eyes Eyes: Denies change in vision ENT ENT ED: Denies dysphagia or sore throat Cardiovascular Cardiovascular: Reports chest pain; Denies leg edema, palpitations or racing heartbeat Respiratory/Chest Respiratory/Chest: Denies cough, dyspnea or dyspnea on exertion Gastrointestinal Gastrointestinal: Denies abdominal pain, diarrhea, nausea or vomiting Genitourinary Genitourinary ED: Denies dysuria, hematuria or urinary frequency Musculoskeletal Musculoskeletal: Denies back pain, extremity pain or neck pain Integumentary Denies rash or wounds Neurologic Neurologic: Denies headache(s), paresthesias or weakness EXAM Physical Exam Const Vital Signs: 04/29/23 21:59 04/29/23 22:25 04/29/23 22:29 Temperature 97.8 F Temperature Source Temporal Pulse Rate 82 Respiratory Rate 16 Respiratory Effort Normal Blood Pressure 141/90 H Blood Pressure Mean 107 Pulse Ox 100 Oxygen Delivery Method Room Air 04/29/23 22:59 04/30/23 01:00 04/30/23 02:00 Temperature Temperature Source Pulse Rate 88 83 81 Respiratory Rate 16 13 16 Respiratory Effort Blood Pressure 120/54 L 117/52 L 120/57 L Blood Pressure Mean 76 73 78 Pulse Ox 98 99 98 Oxygen Delivery Method Room Air Room Air Room Air Positive well nourished and well developed General Appearance ED: well developed and NAD HEENT Reports moist mucous membranes normocephalic and atraumatic Eyes PERRL, EOMs intact bilaterally and conjunctivae normal General Eye ED: Yes normal appearance of both eyes Neck no lymphadenopathy and supple General: Negative for tenderness Chest Wall inspection of chest normal and palpation of chest normal Chest: Negative for tenderness Resp normal respiratory effort and normal air movement Effort and Inspection: symmetric chest movement; Negative for respiratory distress Cardio regular rate, regular rhythm and no murmurs Peripheral Pulses: pulses 2+ throughout GI normal to inspection, nondistended, normoactive bowel sounds and non-tender Palpation: Negative for guarding or rebound tenderness present Back/Spine no CVA tenderness and no thoracic nor lumbar tenderness Extremity normal to inspection General Extremety ED: Negative for edema or tenderness General Extremity: Negative for edema Neuro oriented x3 and no sensory deficits noted Sensorium / Orientation: awake and alert Skin no rashes or lesions noted and no wounds Heart Score History: Slightly/Non-Suspicious ECG: Normal Age: </= 45 years Risk Factors: >/= 3 Risk Factors or History of CAD Troponin: </= Normal Limit Score: 2 MDM MDM MDM Narrative Medical decision making narrative: Interventions / MDM: Differential diagnosis: Diagnosis considered but do not suspect: Pneumothorax however chest x-ray negative. My EKG interpretation: Sinus rate of 82, no ST or T wave changes. Imaging independently reviewed and interpreted by myself: 2 view chest x-ray: No acute process. No pneumothorax. External documents reviewed: Cardiac cath May 2019, single-vessel disease with 85 to 90% OM1 lesion with stent placed. Additional cath in March 2020, patent stent, no additional lesions. Test considered but not ordered:N/A ED course: Symptoms currently subsiding. Vital stable EKG sinus rhythm. History of coronary disease with 1 stent 2018. Optimize aspirin therapy 263 mg, cardiac work-up initiated with chest x-ray. 2315: Symptoms improved. Initial cardiac enzyme normal. Chest negative. Will wait for delta troponin. 0100: Delta troponin negative. Remains symptom-free. Discharged with follow-up with cardiology with strict return precautions. All questions were answered. Re-evaluation: stable Disposition discussed with patient/family/significant other: Patient Case discussed with consulting clinician: N/A This note was generated with [employer] dictation software. It may contain incorrect words, spelling, and punctuation that were not noted in checking the note before signing. Lab Data Attestation: I reviewed the patient's lab results. Labs: Laboratory Results - last 24 hr 04/29/23 04/30/23 22:30 00:39 WBC 9.1 RBC 4.50 Hgb 13.1 Hct 41.3 MCV 91.8 MCH 29.1 MCHC 31.7 L RDW Std Deviation 45.6 H RDW Coeff of Precious 13.4 Plt Count 250 MPV 12.2 H Immature Gran % (Auto) 0.300 Neut % (Auto) 58.2 Lymph % (Auto) 32.0 [place] % (Auto) 7.7 Eos % (Auto) 1.2 Baso % (Auto) 0.6 Absolute Neuts (auto) 5.3 Absolute Lymphs (auto) 2.90 Nucleated RBC % 0 Sodium 140 Potassium 4.1 Chloride 109 H Carbon Dioxide 26.0 Anion Gap 5 BUN 16 Creatinine 0.96 Estim Creat Clear Calc 59.96 Est GFR (MDRD) Af Amer 83 Est GFR (MDRD) Non-Af 69 BUN/Creatinine Ratio 16.6 Glucose 81 Calcium 8.9 Troponin I High Sens 4 5 Radiography Diagnostic Testing: Clinical Impression(s) from Imaging Studies Chest X-Ray 04/29/23 22:34 IMPRESSION: No radiographic evidence of acute cardiopulmonary disease. Electronically Signed: Yandel Hayden MD at 23:35 EST Reading Location ID and State: [address] [place] [address] Tel , Service support , Discharge Plan Triage Chief Complaint: Chest Pain ED Provider: Mauro Grande Dx/Rx/DC Orders Clinical Impression: CAD (coronary artery disease), Chest pain Instructions: ED Chest Pain, Uncertain Cause Prescriptions: No Action norethindrone (contraceptive) [Kina] 0.35 mg tablet 0.35 mg PO QHS metformin 750 mg tablet extended release 24 hr 750 mg PO BID losartan 25 mg tablet 25 mg PO DAILY ropinirole 0.5 mg tablet 0.5 mg PO QHS Rx Instructions: administer 1-3 hours before bedtime paroxetine HCl [Paxil] 40 mg tablet 40 mg PO DAILY aspirin 81 MG tablet,chewable 81 mg PO DAILY@0800 atorvastatin 80 mg tablet 80 mg PO QHS Qty: 90 3RF metoprolol tartrate 25 mg tablet 25 mg PO BID Qty: 90 4RF Primary Care Provider: Thalia Jackson Referrals: Thalia Jackson MD [Primary Care Provider] - Sweta Lezama SHOE SALESMAN, SHOE SALESMAN-C [Non-Staff -Ordering Privileges] - 3-5 Days Activity Restrictions/Additional Instructions: Cardiac work-up negative today. Previous stent to the OM1 branch of the left circumflex. Follow-up with cardiology return for any recurrent or worsening symptoms for reevaluation. Disposition Disposition: Home, Self Care Discharge Date/Time: 04/30/23 02:02
[2023-04-29 22:44] LABS: Absolute Neutrophil Count 5.3 X10^3/uL (2.0-7.7); Basophil# 0.05 X10^3/uL; Basophil% 0.6 % (0-1); Eosinophil# 0.11 X10^3/uL; Eosinophils% 1.2 % (0-5); Hematocrit 41.3 % (37-47); Hemoglobin 13.1 g/dL (12.0-15.0); Mean Corp Hgb Conc 31.7 g/dL (32-36); Mean Corpuscular Hgb 29.1 pg (27.0-32.0); Mean Corpuscular Volume 91.8 fL (81-99); Mean Platelet Vol. 12.2 fl (6.2-12.0); Monocyte% 7.7 % (0-10); NRBC Flagged by Analyzer 0 % (0-5); Neutrophil # 5.28 X10^3/uL (2.7-7.7); Neutrophil % 58.2 % (47-70); Platelet Count 250 K/mm3 (150-450); RBC Distribution Width CV 13.4 % (11.6-14.6); RBC Distribution Width SD 45.6 fl (35.1-43.9); White Blood Count 9.1 K/mm3 (4.4-11.0)
[2023-04-29 22:59] VITALS: BP 120/54; PULSE 88; RESP 16; O2SAT 98
[2023-04-29 23:02] LABS: Anion Gap 5 (5-15); BUN 16 mg/dL (7-18); BUN/Creat Ratio 16.6 RATIO (10-20); Calcium,Total 8.9 mg/dL (8.5-10.1); Chloride 109 mmol/L (98-107); Creatinine, Serum 0.96 mg/dL (0.55-1.02); EST Glomerular Filtration Rate 69 mL/min (>60); Est Glom Filt Rate - Afr Amer 83 mL/min (>60); Estimated Creatinine Clearance 59.96 ml/min; Glucose 81 mg/dL (74-106); Potassium 4.1 mmol/L (3.5-5.1); Sodium Level 140 mmol/L (136-145); Troponin-I HS (w/2H Reflex) 4 pg/mL (3.0-54.0)
[2023-04-30 00:42] LABS: Reflex Troponin-HS? (from REC) Y
[2023-04-30 01:00] VITALS: BP 117/52; PULSE 83; RESP 13; O2SAT 99
[2023-04-30 01:47] LABS: Troponin-I HS 5 pg/mL (3.0-54.0)
[2023-04-30 02:00] VITALS: BP 120/57; PULSE 81; RESP 16; O2SAT 98
== END 2023-04-30 02:02 | disposition home or self-care (01) ==
PROVIDERS: Emergency Provider Emergency Medicine; PCP Student in an Organized Health Care Education/Training Program; Visit Provider Emergency Medicine
DX: I25.10 Atherosclerotic heart disease of native coronary artery without angina pectoris (principal); Z68.41 Body mass index [BMI] 40.0-44.9, adult; E11.9 Type 2 diabetes mellitus without complications; I25.2 Old myocardial infarction; I10 Essential (primary) hypertension; E78.00 Pure hypercholesterolemia, unspecified; G47.33 Obstructive sleep apnea (adult) (pediatric); E66.9 Obesity, unspecified; F17.220 Nicotine dependence, chewing tobacco, uncomplicated; Z91.198 Patient's noncompliance with other medical treatment and regimen for other reason; Z95.5 Presence of coronary angioplasty implant and graft; Z79.82 Long term (current) use of aspirin; Z79.84 Long term (current) use of oral hypoglycemic drugs; Z79.899 Other long term (current) drug therapy
CPT/HCPCS: 71046; 80048; 84484; 85025; 93005; 99283; A4216

== ENCOUNTER → 2023-05-30 | Outpatient (CLI) | payer OTHER, SELFPAY ==
[2019-08-31 08:12] VITALS: BMI 38.8
--- NOTE | 2023-05-30 17:23 | STRESSREP_ITS ---
Stress Test Report Date: 05/30/2023 Procedure: Exercise tolerance test/imaging study Indications: Chest pain Consent: Per the patient Procedure: The patient exercised on a Yayo protocol for 6 minutes achieving a peak heart rate of 166 bpm (91% predicted maximal heart rate) with a peak blood pressure 170/92 mmHg and a peak MET capacity of 7.0 METs. The baseline ECG demonstrated sinus rhythm. The peak exercise ECG demonstrated no ischemic changes. There were no cardiac dysrhythmias pretest, during exercise, or recovery. The functional capacity was considered average. There was no complaint of chest discomfort during exercise or recovery. The examination was discontinued secondary to target heart rate being achieved. The patient was injected with 14.7 mCi of technetium 99m Cardiolite and subsequently rest SPECT Cardiolite nuclear imaging was obtained in the horizontal long, vertical long, and short axis views. Post-exercise, the patient was injected with 44.7 mCi of technetium 99m Cardiolite and subsequently stress SPECT Cardiolite nuclear imaging was obtained in the horizontal long, vertical long, and short axis views. A gated Cardiolite study at peak stress was obtained. Rest and stress SPECT Cardiolite nuclear imaging status post realignment, normalization, and attenuation correction, demonstrates the appearance of relative uniform tracer uptake and myocardial perfusion appearing within normal limits. There is end systolic thickening and brightening. The gated Cardiolite study demonstrates myocardial thickening and inward wall motion. The reported LVEF is 71%. Impression: 1. Technically adequate (percent predicted maximal heart rate greater than 85%) exercise tolerance test 2. Peak exercise ECG with no ischemic changes 3. There were no cardiac dysrhythmias pretest, during exercise, or recovery 4. Rest and stress SPECT Cardiolite nuclear imaging demonstrate relative uniform tracer uptake and myocardial perfusion appearing within normal limits. 5. The gated Cardiolite study reports an LVEF of 71%. This note was generated with [employer] 3ation software. It may contain incorrect words, spelling, and punctuation that were not noted in checking the note before signing.
== END | disposition home or self-care (01) ==
LOC: CVS 06:31
PROVIDERS: PCP Student in an Organized Health Care Education/Training Program; Referring Provider Physician Assistant Medical; Visit Provider Physician Assistant Medical
DX: R07.9 Chest pain, unspecified (principal); Z95.5 Presence of coronary angioplasty implant and graft
CPT/HCPCS: 78452; 93017; A9500; A4216

== ENCOUNTER 2023-10-28 13:06 | Emergency (ER) | payer MEDICAID, SELFPAY ==
[2019-08-31 08:12] VITALS: BMI 38.8
[2023-10-28 13:07] VITALS: BP 142/84; PULSE 96; RESP 17; TEMP 36.8; O2SAT 96; BMI 42.2
--- NOTE | 2023-10-28 13:37 | EKG12_ITS ---
Test Reason : CP/DIZZY Blood Pressure : / mmHG Vent. Rate : 097 BPM Atrial Rate : 097 BPM P-R Int : 168 ms QRS Dur : 070 ms QT Int : 330 ms P-R-T Axes : 054 039 048 degrees QTc Int : 419 ms Normal sinus rhythm Low voltage QRS Borderline ECG Confirmed by Huan Knight ([id number]), magazine editor TOM ALARCON ([id number]) on 10/29/2023 9:59:27 AM Referred By: SANDRA/LILLIAN Confirmed By:Huan Knight
--- NOTE | 2023-10-28 13:38 | EDS_ITS ---
HPI <DEBBIE Alfonso - Last Filed: 10/28/23 17:11> History of Present Illness Chief Complaint: Dizziness Narrative Narrative: Patient is a 38-year-old female with history of CAD, obesity, sleep apnea does not wear a sleep apnea mask, diabetes, hypertension hyperlipidemia history of [place] last stent placed 2018 presenting to the emergency department for left-sided shoulder pain, numbness and tingling to the left arm. 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 Secondary to her history she got concerned, she felt slightly short of breath and was breathing fast and is here for evaluation. She states the symptoms are much less at this time. <Dr. Doroteo Thibodeaux DO - Last Filed: 10/28/23 18:25> Narrative Narrative: Patient is a 38-year-old female with history of CAD, obesity, sleep apnea does not wear a sleep apnea mask, diabetes, hypertension hyperlipidemia history of [place] last stent placed 2018 presenting to the emergency department for left-sided shoulder pain, numbness and tingling to the left arm. Patient states she was working at a [employer] shop, when she was on her break sitting when she felt the sensation. Secondary to her history she got concerned, she felt slightly short of breath and was breathing fast and is here for evaluation. She states the symptoms are much less at this time. The patient denies recent surgery in the last 4 weeks or immobilization in the last 3 days, denies previous diagnosis of DVT or PE, hemoptysis, unilateral leg swelling or malignancy with treatment the last 6 months or palliative. No estrogen use noted. [facility] <DEBBIE Alfonso - Last Filed: 10/28/23 17:11> [facility] Medical History (Updated 10/28/23 @ 17:10 by DEBBIE Alfonso) Arthritis Atherosclerotic heart disease of [place] coronary artery without angina pectoris Chewing tobacco nicotine dependence History of myocardial infarction Hyperinsulinism Home Medications metformin 750 mg tablet,extended release 24 hr 750 mg PO BID diabetes 07/24/19 [History Last Taken 04/04/20] norethindrone (contraceptive) 0.35 mg tablet (Kina) 0.35 mg PO QHS oral contraceptive 07/24/19 [History Last Taken 04/03/20] losartan 25 mg tablet 25 mg PO DAILY blood pressure 01/01/20 [History Last Taken 04/04/20] aspirin 81 mg chewable tablet 81 mg PO DAILY@0800 heart health 04/04/20 [History Last Taken 04/04/20] atorvastatin 80 mg tablet 80 mg PO QHS cholesterol #90 tabs 09/21/20 [Rx Last Taken Unknown] ropinirole 0.5 mg tablet 0.5 mg PO QHS 02/17/21 [History Last Taken Unknown] metoprolol tartrate 25 mg tablet 25 mg PO BID heart/blood pressure #90 tabs 09/11/22 [Rx Last Taken Unknown] paroxetine HCl 40 mg tablet (Paxil) 40 mg PO DAILY 03/29/23 [History Last Taken Unknown] duloxetine 60 mg capsule,delayed release 60 mg PO DAILY 05/02/23 [History Last Taken Unknown] Allergy/AdvReac Type Severity Reaction Status Date / Time Iodinated Contrast Media Allergy Itching of Verified 10/28/23 13:53 [CONTRASTS] tongue and swelling of lips morphine AdvReac Unknown Itching Verified 10/28/23 13:53 Family History Father Diabetes Grandfather Presence of pancreatic duct stent Surgical History History of left heart catheterization (04/05/20) S/P coronary artery stent placement (06/05/19) Social History Smoking Status: Never smoker Smokeless tobacco user: chewing tobacco alcohol intake: never substance use type: does not use caffeine: Yes Type: carbonated beverages Number of servings: 3 ROS <DEBBIE Alfonso - Last Filed: 10/28/23 17:11> ROS ED ROS Narrative Constitutional: Negative for fever, chills, weight loss, weakness Eyes: Negative for vision loss, vision change, double vision ENT: Negative for any sore throat, ear pain, congestion Cardiovascular: Negative for any tightness, palpitations. Positive for left chest pain, left shoulder pain Respiratory: Negative for any cough, sputum production, hemoptysis, dyspnea, dyspnea on exertion, orthopnea Gastrointestinal: Negative for any abdominal pain, nausea, vomiting, diarrhea, constipation, blood in stool, blood in vomit : Negative for any urinary frequency, dysuria, retention, blood in urine Muscle skeletal: Negative for any neck pain, back pain. Positive numbness and tingling to the left arm Neurological: Negative for any headache, syncope, dizziness Skin: Negative for any rashes, itching, abrasions, lacerations Psychiatric: Negative for any depression, anxiety, stress, suicidal ideation, homicidal ideation Hematologic: Negative for any excessive bruising, easy bleeding EXAM <DEBBIE Alfonso - Last Filed: 10/28/23 17:11> Physical Exam Narrative Exam Narrative: Vital signs reviewed. HEET: Head normocephalic atraumatic, TMs clear bilaterally. Posterior pharynx is clear, moist mucous membranes. Nares clear bilaterally. Neck: Supple with no lymphadenopathy or tenderness. No signs of meningismus. Cardiac: Regular rate and rhythm no murmurs gallops or rubs, equal peripheral pulses bilaterally. Respiratory: Lungs clear to auscultation bilaterally. No chest tenderness. Abdomen: Soft, nontender, nondistended. No abdominal bruit or pulsatile masses. No hepatosplenomegaly Extremities: No peripheral edema, no signs of gross trauma or deformity. Active full range of motion of all extremities. Neuro: Cranial nerves II through XII intact, no focal neurological deficits. Skin: Clean dry and intact with no rash, purpura, petechiae, vesicles or pustules. Backs/flank: No CVA tenderness, no midline spinal tenderness, no deformity. Psych: Normal mood and affect. No SI, HI or acute psychosis. Const Vital Signs: 10/28/23 13:07 10/28/23 13:52 10/28/23 13:53 Temperature 98.2 F 97.5 F L Temperature Source Temporal Oral Pulse Rate 96 77 Respiratory Rate 17 20 H Blood Pressure 142/84 H 101/51 L Blood Pressure Mean 103 67 Pulse Ox 96 96 97 Oxygen Delivery Method Room Air Room Air Room Air 10/28/23 15:06 10/28/23 17:00 10/28/23 17:28 Temperature 98.1 F Temperature Source Pulse Rate 66 72 81 Respiratory Rate 23 H 19 H 16 Blood Pressure 97/55 L 99/66 118/59 L Blood Pressure Mean 69 77 78 Pulse Ox 96 96 99 Oxygen Delivery Method Room Air Room Air <Dr. Doroteo Thibodeaux, DO - Last Filed: 10/28/23 18:25> Physical Exam Const Vital Signs: 10/28/23 13:07 10/28/23 13:52 10/28/23 13:53 Temperature 98.2 F 97.5 F L Temperature Source Temporal Oral Pulse Rate 96 77 Respiratory Rate 17 20 H Blood Pressure 142/84 H 101/51 L Blood Pressure Mean 103 67 Pulse Ox 96 96 97 Oxygen Delivery Method Room Air Room Air Room Air 10/28/23 15:06 10/28/23 17:00 10/28/23 17:28 Temperature 98.1 F Temperature Source Pulse Rate 66 72 81 Respiratory Rate 23 H 19 H 16 Blood Pressure 97/55 L 99/66 118/59 L Blood Pressure Mean 69 77 78 Pulse Ox 96 96 99 Oxygen Delivery Method Room Air Room Air MDM <SHWETA AlfonsoC - Last Filed: 10/28/23 17:11> MDM Lab Data Labs: Laboratory Results - last 24 hr 10/28/23 10/28/23 14:00 16:16 WBC 7.5 RBC 4.75 Hgb 13.7 Hct 41.1 MCV 86.5 MCH 28.8 MCHC 33.3 RDW Std Deviation 41.1 RDW Coeff of Precious 13.1 Plt Count 286 MPV 11.4 Immature Gran % (Auto) 0.300 Neut % (Auto) 65.6 Lymph % (Auto) 25.3 Steele % (Auto) 6.6 Eos % (Auto) 1.1 Baso % (Auto) 1.1 H Absolute Neuts (auto) 5.0 Absolute Lymphs (auto) 1.91 Nucleated RBC % 0 Sodium 139 Potassium 3.6 Chloride 109 H Carbon Dioxide 24.0 Anion Gap 6 BUN 10 Creatinine 0.81 Estim Creat Clear Calc 102.95 Est GFR (MDRD) Af Amer 102 Est GFR (MDRD) Non-Af 84 BUN/Creatinine Ratio 12.4 Glucose 103 Calcium 9.0 Troponin I High Sens < 3 L < 3 L Radiography Diagnostic Testing: Clinical Impression(s) from Imaging Studies Chest X-Ray 10/28/23 14:02 IMPRESSION: Normal x-ray examination of the chest. Electronically Signed: Juan Mcfarlane MD at 14:28 EDT , Treatment and Re-Evaluation :: Differential diagnosis includes however is not limited to: ACS, [place], unstable angina, angina pectoris, anxiety Patient appears to be in no obvious respiratory distress, patient's vital signs are stable. Patient presents to the emergency department with complaints of left-sided shoulder pain that radiated down her left arm with some numbness and tingling, as well as rapid breathing, feeling shortness of breath. Patient states this happened at approximately 12:30 PM. Patient received a full cardiac workup including 2 troponins. Chest x-ray. Patient was given baby aspirin. At this time, patient has no pain at this time. Patient is asymptomatic On reevaluation, the patient was asymptomatic. Patient's chest x-ray showed no acute process. Patient's laboratory values showed normal CBC, patient's chemistries were unremarkable, initial troponin was less than 3, repeat was less than 3. At this time, EKG was unremarkable, no evidence of ACS or [place]. I believ e the patient is stable for discharge and can follow-up outpatient. She is happy with the plan of care, all questions answered, stable for discharge. <Dr. Doroteo Thibodeaux, DO - Last Filed: 10/28/23 18:25> [facility] Lab Data Labs: Laboratory Results - last 24 hr 10/28/23 10/28/23 14:00 16:16 WBC 7.5 RBC 4.75 Hgb 13.7 Hct 41.1 MCV 86.5 MCH 28.8 MCHC 33.3 RDW Std Deviation 41.1 RDW Coeff of Precious 13.1 Plt Count 286 MPV 11.4 Immature Gran % (Auto) 0.300 Neut % (Auto) 65.6 Lymph % (Auto) 25.3 Steele % (Auto) 6.6 Eos % (Auto) 1.1 Baso % (Auto) 1.1 H Absolute Neuts (auto) 5.0 Absolute Lymphs (auto) 1.91 Nucleated RBC % 0 Sodium 139 Potassium 3.6 Chloride 109 H Carbon Dioxide 24.0 Anion Gap 6 BUN 10 Creatinine 0.81 Estim Creat Clear Calc 102.95 Est GFR (MDRD) Af Amer 102 Est GFR (MDRD) Non-Af 84 BUN/Creatinine Ratio 12.4 Glucose 103 Calcium 9.0 Troponin I High Sens < 3 L < 3 L Radiography Diagnostic Testing: Clinical Impression(s) from Imaging Studies Chest X-Ray 10/28/23 14:02 IMPRESSION: Normal x-ray examination of the chest. Electronically Signed: Juan Mcfarlane MD at 14:28 EDT , Treatment and Re-Evaluation :: Differential diagnosis includes however is not limited to: ACS, [place], unstable angina, angina pectoris, anxiety PE less likely given low risk Wells score. Aortic dissection is thought to be less likely given no sudden ripping or tearing pain, migratory pain, palpable pulse inequalities, no focal neurologic deficits concurrent with chest pain. Chance of dissection less than 06/1999. Pericarditis less likely given no pathognomonic EKG changes (no diffuse ST elevations, VT depressions). GI etiology (i.e. Boerhaave syndrome) less likely given no chest or neck crepitus, no vomiting or forced retching. Patient appears to be in no obvious respiratory distress, patient's vital signs are stable. Patient presents to the emergency department with complaints of left-sided shoulder pain that radiated down her left arm with some numbness and tingling, as well as rapid breathing, feeling shortness of breath. Patient states this happened at approximately 12:30 PM. Patient received a full cardiac workup including 2 troponins. Chest x-ray. Patient was given baby aspirin. At this time, patient has no pain at this time. Patient is asymptomatic On reevaluation, the patient was asymptomatic. Patient's chest x-ray showed no acute process. Patient's laboratory values showed normal CBC, patient's chemistries were unremarkable, initial troponin was less than 3, repeat was less than 3. At this time, EKG was unremarkable, no evidence of ACS or [place]. I believe the patient is stable for discharge and can follow-up outpatient. She is happy with the plan of care, all questions answered, stable for discharge. ED attending note: I evaluated the patient in conjunction with the [facility]. I agree with his/her statements and above findings. I have personally performed a face to face assessment of the patient and have reviewed the [facility] Note. I performed a substantive portion of the visit including all aspects of the following. I personally saw the patient performed chart review, physical exam, reviewed labs, imaging (if obtained), and formulated a treatment and management plan. This note was generated with [employer] dictation software. It may contain incorrect words, spelling, and punctuation that were not noted in review of the chart prior to signing. Discharge Plan Triage Chief Complaint: Dizziness ED Midlevel Provider: Abisai Vogt ED Provider: Doroteo Thibodeaux Dx/Rx/DC Orders Clinical Impression: Chest pain Instructions: ED Chest Pain, Uncertain Cause Prescriptions: No Action norethindrone (contraceptive) [Kina] 0.35 mg tablet 0.35 mg PO QHS metformin 750 mg tablet extended release 24 hr 750 mg PO BID losartan 25 mg tablet 25 mg PO DAILY ropinirole 0.5 mg tablet 0.5 mg PO QHS Rx Instructions: administer 1-3 hours before bedtime paroxetine HCl [Paxil] 40 mg tablet 40 mg PO DAILY duloxetine 60 mg capsule,delayed release(DR/EC) 60 mg PO DAILY aspirin 81 MG tablet,chewable 81 mg PO DAILY@0800 atorvastatin 80 mg tablet 80 mg PO QHS Qty: 90 3RF metoprolol tartrate 25 mg tablet 25 mg PO BID Qty: 90 4RF Primary Care Provider: Thalia Jackson Referrals: Thalia Jackson MD [Primary Care Provider] - Activity Restrictions/Additional Instructions: Please follow-up outpatient. You have a normal chest pain workup today. Follow-up outpatient Disposition Disposition: Home, Self Care Discharge Date/Time: 10/28/23 17:29
[2023-10-28 13:52] VITALS: BP 101/51; PULSE 77; RESP 20; TEMP 36.4; O2SAT 96
[2023-10-28 13:53] VITALS: O2SAT 97
[2023-10-28] MEDS: Aspirin 81 MG TAB.CHEW 162 MG PO (13:57)
--- NOTE | 2023-10-28 14:02 | RAD_ITS ---
STUDY: X-RAY CHEST REASON FOR EXAM: Female, 38 years old. Chest pain TECHNIQUE: Single AP portable view of the chest. COMPARISON: Comparison is made with prior study dated April 29, 2023. FINDINGS: EKG electrodes are seen. The lungs are clear and expanded. There is no demonstrated pleural abnormality. Normal size heart. Normal mediastinum and lima. Normal visualized pulmonary arteries. Normal visualized aortic arch and descending thoracic aorta. Normal visualized thoracic spine. Normal visualized ribs, clavicles, and shoulders. There is no demonstrated abnormality of the visualized soft tissue structures of the upper abdomen. RAD/Chest 1 View (Portable) IMPRESSION: Normal x-ray examination of the chest. Electronically Signed: Juan Mcfarlane MD at 14:28 EDT ,
[2023-10-28 14:14] LABS: Absolute Lymphocyte Count 1.91 X10^3/uL (0.83-4.51); Basophil# 0.08 X10^3/uL; Basophil% 1.1 % (0-1); Eosinophil# 0.08 X10^3/uL; Eosinophils% 1.1 % (0-5); Hematocrit 41.1 % (37-47); Hemoglobin 13.7 g/dL (12.0-15.0); Lymphocyte # 1.91 X10^3/ul (0.83-4.51); Lymphocyte % 25.3 % (19-41); Mean Corp Hgb Conc 33.3 g/dL (32-36); Mean Corpuscular Hgb 28.8 pg (27.0-32.0); Mean Corpuscular Volume 86.5 fL (81-99); Mean Platelet Vol. 11.4 fl (6.2-12.0); Monocyte% 6.6 % (0-10); NRBC Flagged by Analyzer 0 % (0-5); Neutrophil # 4.95 X10^3/uL (2.7-7.7); Neutrophil % 65.6 % (47-70); Platelet Count 286 K/mm3 (150-450); RBC Distribution Width CV 13.1 % (11.6-14.6); RBC Distribution Width SD 41.1 fl (35.1-43.9); Red Blood Count 4.75 M/mm3 (4.2-5.4); White Blood Count 7.5 K/mm3 (4.4-11.0)
[2023-10-28 14:29] LABS: Anion Gap 6 (5-15); BUN 10 mg/dL (7-18); BUN/Creat Ratio 12.4 RATIO (10-20); Chloride 109 mmol/L (98-107); Creatinine, Serum 0.81 mg/dL (0.55-1.02); EST Glomerular Filtration Rate 84 mL/min (>60); Est Glom Filt Rate - Afr Amer 102 mL/min (>60); Estimated Creatinine Clearance 102.95 ml/min; Glucose 103 mg/dL (74-106); Potassium 3.6 mmol/L (3.5-5.1); Sodium Level 139 mmol/L (136-145); Troponin-I HS (w/2H Reflex) < 3 pg/mL (3.0-54.0)
[2023-10-28 15:06] VITALS: BP 97/55; PULSE 66; RESP 23; O2SAT 96
[2023-10-28 16:08] LABS: Reflex Troponin-HS? (from REC) Y
[2023-10-28 17:00] VITALS: BP 99/66; PULSE 72; RESP 19; O2SAT 96
[2023-10-28 17:06] LABS: Troponin-I HS < 3 pg/mL (3.0-54.0)
[2023-10-28 17:28] VITALS: BP 118/59; PULSE 81; RESP 16; TEMP 36.7; O2SAT 99
== END 2023-10-28 17:29 | disposition home or self-care (01) ==
PROVIDERS: Nurse Practitioner; Emergency Provider Emergency Medicine; PCP Student in an Organized Health Care Education/Training Program; Visit Provider Emergency Medicine
DX: R07.9 Chest pain, unspecified (principal); Z68.41 Body mass index [BMI] 40.0-44.9, adult; E11.9 Type 2 diabetes mellitus without complications; R42 Dizziness and giddiness; I25.10 Atherosclerotic heart disease of native coronary artery without angina pectoris; I25.2 Old myocardial infarction; E78.5 Hyperlipidemia, unspecified; E66.9 Obesity, unspecified; F17.220 Nicotine dependence, chewing tobacco, uncomplicated; Z95.5 Presence of coronary angioplasty implant and graft; Z79.82 Long term (current) use of aspirin; Z79.84 Long term (current) use of oral hypoglycemic drugs; Z79.899 Other long term (current) drug therapy
CPT/HCPCS: 71045; 80048; 84484; 85025; 93005; 99284; A4216

== ENCOUNTER → 2024-01-03 | Outpatient (CLI) | payer MEDICAID, SELFPAY ==
[2019-08-31 08:12] VITALS: BMI 38.8
[2024-01-03 11:43] LABS: ALB/GLOB Ratio 0.9 RATIO (0.9-2.4); AST(SGOT) 21 U/L (15-37); Alanine Aminotransfer ALT/SGPT 25 U/L (13-56); Albumin, Serum 3.4 g/dL (3.2-5.0); Alkaline Phosphatase 136 U/L (45-117); Anion Gap 4 (5-15); BUN 12 mg/dL (7-18); BUN/Creat Ratio 14.4 RATIO (10-20); Calcium,Total 9.1 mg/dL (8.5-10.1); Chloride 106 mmol/L (98-107); Cholesterol 140 mg/dL (200); Creatinine, Serum 0.84 mg/dL (0.55-1.02); EST Glomerular Filtration Rate 81 mL/min (>60); Est Glom Filt Rate - Afr Amer 98 mL/min (>60); Globulin 3.9 g/dL (2.2-4.2); Glucose 97 mg/dL (74-106); High Density Lipoprotein 46 mg/dL; Potassium 4.1 mmol/L (3.5-5.1); Protein, Total 7.3 g/dL (6.4-8.2); Sodium Level 135 mmol/L (136-145); Triglycerides 113 mg/dL; Very Low Density Lipoprotein 23 mg/dL (5-40)
[2024-01-03 23:41] LABS: Hemoglobin A1c 5.6 % (3.8-5.6)
== END | disposition home or self-care (01) ==
LOC: LAB 10:04
PROVIDERS: PCP Student in an Organized Health Care Education/Training Program; Referring Provider Physician Assistant Medical; Visit Provider Physician Assistant Medical
DX: Z95.5 Presence of coronary angioplasty implant and graft (principal); E16.1 Other hypoglycemia
CPT/HCPCS: 36415; 80053; 80061; 83036

== ENCOUNTER → 2024-07-31 | Outpatient (CLI) | payer MEDICAID, SELFPAY ==
[2019-08-31 08:12] VITALS: BMI 38.8
== END | disposition home or self-care (01) ==
LOC: SL 19:42
PROVIDERS: PCP Student in an Organized Health Care Education/Training Program; Referring Provider Internal Medicine; Visit Provider Internal Medicine
DX: G47.33 Obstructive sleep apnea (adult) (pediatric) (principal)
CPT/HCPCS: 95811

== ENCOUNTER → 2024-08-21 | Outpatient (CLI) | payer MEDICAID, SELFPAY ==
[2019-08-31 08:12] VITALS: BMI 38.8
== END | disposition home or self-care (01) ==
LOC: SL 17:34
PROVIDERS: PCP Internal Medicine; Visit Provider Internal Medicine
DX: Z00.00 Encounter for general adult medical examination without abnormal findings (principal)

== ENCOUNTER → 2024-12-30 | Outpatient (CLI) | payer MEDICAID, SELFPAY ==
[2019-08-31 08:12] VITALS: BMI 38.8
[2024-12-30 08:59] LABS: Hematocrit 42.7 % (37-47); Hemoglobin 14.4 g/dL (12.0-15.0); Immature Granulocytes Count 0.020 X10^3/uL (0.0-0.0); Mean Corp Hgb Conc 33.7 g/dL (32-36); Mean Corpuscular Volume 87.5 fL (81-99); Mean Platelet Vol. 12.2 fl (6.2-12.0); NRBC Flagged by Analyzer 0 % (0-5); Platelet Count 263 K/mm3 (150-450); RBC Distribution Width CV 13.6 % (11.6-14.6); RBC Distribution Width SD 43.1 fl (35.1-43.9); Red Blood Count 4.88 M/mm3 (4.2-5.4); White Blood Count 6.8 K/mm3 (4.4-11.0)
[2024-12-30 09:34] LABS: AST(SGOT) 25 U/L (<=31); Alanine Aminotransfer ALT/SGPT 20 U/L (<=34); Albumin, Serum 4.0 g/dL (3.5-5.0); Alkaline Phosphatase 124 U/L (35-104); Bilirubin, Direct 0.22 mg/dL (0.00-0.30); Cholesterol 95 mg/dL (<=200); Globulin 3.1 g/dL (2.2-4.2); Low Density Lipoprotein Calc. 40 mg/dL; Triglycerides 64 mg/dL; Very Low Density Lipoprotein 13 mg/dL (5-40); cholesterol:hdl ratio screen 2.27
[2024-12-30 09:36] LABS: Anion Gap 11 (5-15); BUN 10 mg/dL (4-19); BUN/Creat Ratio 12.1 RATIO (10-20); Calcium,Total 8.9 mg/dL (7.6-11.0); Carbon Dioxide 18.9 mmol/L (21.0-32.0); Chloride 107 mmol/L (98-108); Glucose 84 mg/dL (70-99); Potassium 4.4 mmol/L (3.3-5.1)
== END | disposition home or self-care (01) ==
LOC: LAB 08:07
PROVIDERS: Physician Assistant Medical; PCP Internal Medicine; Referring Provider Internal Medicine Cardiovascular Disease; Visit Provider Internal Medicine
DX: I25.10 Atherosclerotic heart disease of native coronary artery without angina pectoris (principal); E66.01 Morbid (severe) obesity due to excess calories; Z68.41 Body mass index [BMI] 40.0-44.9, adult; I10 Essential (primary) hypertension; E78.00 Pure hypercholesterolemia, unspecified; R73.03 Prediabetes
CPT/HCPCS: 36415; 80048; 80061; 80076; 83036; 85025

== ENCOUNTER → 2025-04-15 | Outpatient (CLI) | payer MEDICAID, SELFPAY ==
[2019-08-31 08:12] VITALS: BMI 38.8
== END | disposition home or self-care (01) ==
PROVIDERS: PCP Internal Medicine
DX: Z12.31 Encounter for screening mammogram for malignant neoplasm of breast (principal)
CPT/HCPCS: 77063; 77067